=== PATIENT | male | born 1945 | race Caucasian/White ===

== ENCOUNTER 2018-02-28 08:54 | Inpatient (IN) | payer MEDICARE ==
[2018-02-28] MEDS ORDERED: NS 0.9% 1000 ML*IV.FLUID IV ONE (09:37)
--- OUTSIDE RECORDS SUMMARY | 2018-02-28 09:41 | XMS REPORT ---
:1945 External Reference #:[id number] Author Organization [facility] Address [address] [place] [address] Phone [phone] Care Team Providers Name Role Phone Alexandr Faria MD Care Team Information Trailer Sections Assembler Unavailable Alexandr Faria MD Primary Care Physician Unavailable Payers Type Date Identification Numbers Payment Provider Subscriber Medicare Primary Effective: Policy Number: Medicare Evy Martinez 2009 [id number] PayID: [id number] [address] [place] [address] Problems Date Description Provider Status Onset: 05/13/2011 Adult health examination Alexandr Faria M.D. Active Onset: 03/22/2012 Constipation Alexandr Faria M.D. Active Onset: 06/02/2012 Benign essential hypertension Alexandr Faria M.D. Active Onset: 06/02/2012 Schizoaffective schizophrenia in Alexandr Faria M.D. Active remission Onset: 12/23/2016 Gastroesophageal reflux disease Alexandr Faria M.D. Active Onset: 12/23/2016 Schizoaffective disorder Alexandr Faria M.D. Active Family History Date Family Member(s) Problem(s) Comments Father alzheimers Social History Type Date Description Comments Living Situation Patient lives alone Cigarette Use Nonsmoker ETOH Use Denies alcohol use Daily Caffeine Some Caffeine Allergies, Adverse Reactions, Alerts Date Description Reaction Status Severity Comments 05/07/2010 Stelazine active Medications Medication Date Status Form Strength Qnty SIG Indications Ordering Provider Physical 02/19/ Active treatment [facility] 2018 and danis Escobar Afnp-C of low back pain, also some balnce problems Doxycycline 02/11/ Active Tablets 100mg 20tab take 1 Alexandr Corbett 2018 s tablet by Breiman, mouth two M.D. times daily Omeprazole 05/12/ Active Capsules 20mg 90cap 1 by mouth Lizzeth 2015 DR pillai every day RACQUEL Correia Elavil 02/10/ Active Tablets 25mg 30tab 1 qhs Family 2006 [facility] Navane 02/10/ Active Capsule 10mg 2 PO Q hs Family 2006 [facility] Prozac 02/10/ Active Capsules 20mg 30cap 2 po qd Family 2006 s [facility] Diovan HCT 02/10/ Active Tablets 160-12.5mg 45tab / by Alexandr Bautista 2007 s mouth every Breiman, day M.D. Colace / Active Capsules 100mg 2 po qd Unknown 0000 Melatonin ER / Active Tablets ER 10mg 1 PO qd Unknown 0000 Tamiflu 10/17/ Hx Capsules 75mg 10cap 1 by mouth Alexandr Bautista 2015 - s twice a day Breiman, 07/05/ for 5 days M.D. 2014 Anusol-HC 03/22/ Hx Cream 2.5% 30uni apply bid Alexandr Bautista 2012 - ts Breiman, 05/11/ M.D. 2016 Immunizations CPT Code Status Date Vaccine Lot # [id number] Given 06/30/2017 Pneumococcal Immunization [id number] Given 06/30/2017 High-Dose, Influenza Virus Vacccine-fluzone 65 [id number] and older 86917 Given 06/17/2016 Pneumococcal Conjugate Vacc-13 [id number] Given 06/17/2016 High-Dose, Influenza Virus Vacccine-fluzone 65 [id number] and older Q2038 Given 04/13/2012 Split Influenza Medicare: Fluzone [id number] Given 01/13/2012 Zostivax [id number] Q2038 Given 03/21/2011 Split Influenza Medicare: Fluzone [id number] Given 05/07/2010 Tdap Tetanus, W Pertussis [id number] Given 04/29/2010 DO Not Use Split Influenza Virus Vaccine [id number] Vital Signs Date Vital Result Comment 02/19/2018 BP Systolic 126 mmHg BP Diastolic 86 mmHg Heart Rate 74 /min Body Temperature 97.6 F Respiratory Rate 16 /min 02/09/2018 BP Systolic 140 mmHg BP Diastolic 88 mmHg Heart Rate 84 /min Body Temperature 98.1 F Respiratory Rate 18 /min Height 65.5 inches 5'5.50" Weight 166.00 lb BMI (Body Mass Index) 27.2 kg/m2 12/29/2017 BP Systolic 122 mmHg BP Diastolic 82 mmHg Heart Rate 90 /min Body Temperature 98.2 F Height 65.5 inches 5'5.50" Weight 169.00 lb BMI (Body Mass Index) 27.7 kg/m2 11/16/2017 BP Systolic 146 mmHg BP Diastolic 80 mmHg Heart Rate 88 /min Body Temperature 97.3 F Respiratory Rate 18 /min Height 65.5 inches 5'5.50" 06/30/2017 BP Systolic 160 mmHg BP Diastolic 100 mmHg Heart Rate 86 /min Body Temperature 97.9 F Height 65.5 inches 5'5.50" Weight 172.25 lb BMI (Body Mass Index) 28.2 kg/m2 12/23/2016 BP Systolic 124 mmHg BP Diastolic 80 mmHg Heart Rate 84 /min Body Temperature 98.0 F Respiratory Rate 18 /min Height 65.5 inches 5'5.50" Weight 167.00 lb BMI (Body Mass Index) 27.4 kg/m2 06/17/2016 BP Systolic 126 mmHg BP Diastolic 80 mmHg Heart Rate 68 /min Body Temperature 97.6 F Respiratory Rate 20 /min Height 65.5 inches 5'5.50" Weight 179.12 lb BMI (Body Mass Index) 29.4 kg/m2 05/12/2016 BP Systolic 132 mmHg BP Diastolic 88 mmHg Heart Rate 90 /min Body Temperature 98.1 F Height 65.5 inches 5'5.50" Weight 179.50 lb BMI (Body Mass Index) 29.4 kg/m2 01/08/2016 BP Systolic 132 mmHg BP Diastolic 78 mmHg Heart Rate 88 /min Body Temperature 97.9 F Respiratory Rate 16 /min Height 65.5 inches 5'5.50" Weight 176.00 lb BMI (Body Mass Index) 28.8 kg/m2 07/05/2015 BP Systolic 140 mmHg BP Diastolic 80 mmHg Heart Rate 90 /min Body Temperature 97.6 F Respiratory Rate 16 /min Height 65.5 inches 5'5.50" Weight 178.50 lb BMI (Body Mass Index) 29.2 kg/m2 10/17/2014 BP Systolic 124 mmHg BP Diastolic 80 mmHg Heart Rate 92 /min Body Temperature 97.9 F Respiratory Rate 20 /min O2 % BldC Oximetry 97 % Height 65.5 inches 5'5.50" Weight 178.00 lb BMI (Body Mass Index) 29.2 kg/m2 09/12/2013 BP Systolic 130 mmHg BP Diastolic 80 mmHg Heart Rate 80 /min Body Temperature 97.8 F Respiratory Rate 14 /min Height 65.5 inches 5'5.50" Weight 185.00 lb BMI (Body Mass Index) 30.3 kg/m2 06/02/2012 BP Systolic 124 mmHg BP Diastolic 88 mmHg Heart Rate 84 /min Body Temperature 97.8 F Height 65.5 inches 5'5.50" Weight 187.00 lb BMI (Body Mass Index) 30.6 kg/m2 Right Visual Acuity Distance 20/25 corrected Left Visual Acuity Distance 20/25 corrected 03/22/2012 BP Systolic 124 mmHg BP Diastolic 80 mmHg Heart Rate 76 /min Body Temperature 98.1 F Height 65.5 inches 5'5.50" Weight 184.00 lb BMI (Body Mass Index) 30.2 kg/m2 05/13/2011 BP Systolic 124 mmHg BP Diastolic 80 mmHg Heart Rate 76 /min Height 65.5 inches 5'5.50" Weight 192.00 lb BMI (Body Mass Index) 31.5 kg/m2 05/07/2010 BP Systolic 126 mmHg BP Diastolic 80 mmHg Heart Rate 76 /min Height 65.5 inches 5'5.50" Weight 201.00 lb BMI (Body Mass Index) 32.9 kg/m2 03/20/2009 BP Systolic 122 mmHg BP Diastolic 70 mmHg Heart Rate 84 /min Height 65.5 inches 5'5.50" Weight 197.00 lb BMI (Body Mass Index) 32.3 kg/m2 12/07/2007 BP Systolic 112 mmHg BP Diastolic 72 mmHg Heart Rate 80 /min Height 199 inches 16'7" Weight 198.00 lb BMI (Body Mass Index) 3.5 kg/m2 02/10/2007 BP Systolic 134 mmHg BP Diastolic 90 mmHg Heart Rate 88 /min Height 199 inches 16'7" Weight 655.00 lb BMI (Body Mass Index) 11.6 kg/m2 Results Test Date Test Result H/L Range Note Laboratory test finding 02/09/2018 Sedimentation Rate 30mm D Dimer Quant (Fma) 573 ng/mL High 0.0-400 Brain Natural Peptide 39.7 pg/mL <100 Comprehensive Metabolic Prof 02/09/2018 Sodium 139 mEq/L 134-149 Potassium 3.6 mEq/L 3.6-5.5 Chloride 107 mEq/L 94-112 Carbon Dioxide 27 mEq/L 21-32 Glucose 103 mg/dL 70-105 BUN 19 mg/dL 6-26 Creatinine 0.7 mg/dL 0.6-1.4 BUN/Creat Ratio 27.1 CALC 8.0-36.0 Calcium 8.8 mg/dL 8.6-10.2 Total Protein 6.5 g/dL 6.4-8.3 Albumin 3.5 g/dL Low 3.8-5.5 1 Globulin 3.0 g/dL 2.0-4.8 A/G Ratio 1.2 CALC 0.6-2.3 Alk. Phosphatase 179 U/L High 22-95 Alt (SGPT) 61 U/L High 7-35 Ast (Sgot) 89 U/L High 5-34 Total Bilirubin 2.6 mg/dL High 0.2-1.3 GFR Non- >60 ml/min/1.73m^ >=60 GFR >60 ml/min/1.73m^ >=60 CBC Electronic [facility] 02/09/2018 WBC 3.9 x10^3/UL Low 4.0-10.0 RBC 3.97 x10^6/UL 3.93-6.00 HGB 12.8 g/dL 12.0-17.0 HCT 37 % 35-50 MCV 94.0 fL 80.0-95.0 MCH 32.2 pg 25.6-32.2 MCHC 34.3 g/dL 32.2-36.0 RDW-CV 15.3 % High 11.6-14.4 PLT 74 x10^3/UL Low 163-400 2 MPV 11.3 fL 9.4-12.4 Ferny# 2.88 x10^3/UL 1.56-6.13 Lymph# 0.58 x10^3/UL Low 1.18-3.74 Tensas# 0.31 x10^3/UL 0.24-0.82 Eos # 0.1 x10^3/UL 0.0-0.5 Baso # 0.02 x10^3/UL 0.01-0.08 Ferny% 74.7 % High 34.0-70.0 Lymph % 15.1 % Low 20.0-52.0 Tensas% 8.1 % 5.0-12.0 Eos% 1.6 % 0.7-7.0 Baso% 0.5 % 0.1-1.2 Lyme, Western Blot, Serum 02/09/2018 IgG P93 Ab. Absent 3 IgG P66 Ab. Absent 3 IgG P58 Ab. Absent 3 IgG P45 Ab. Absent 3 IgG P41 Ab. Absent 3 IgG P39 Ab. Absent 3 IgG P30 Ab. Absent 3 IgG P28 Ab. Absent 3 IgG P23 Ab. Absent 3 IgG P18 Ab. Absent 3 Lyme IgG WB Interp. Negative 3, 4 IgM P41 Ab. Absent 3 IgM P39 Ab. Absent 3 IgM P23 Ab. Absent 3 Lyme IgM WB Interp. Negative 3, 5 Total And Direct Bili 02/09/2018 Total Bilirubin 2.6 mg/dL High 0.2-1.3 Direct Bilirubn 1.4 mg/dL High 0.0-0.6 Indirect Bilirubin 1.20 mg/dL High 0.10-1.00 Laboratory test finding 12/29/2017 Vitamin B-12 >2000 pg/mL High 230-1050 6 TSH 1.19 mIU/L 0.50-6.00 Free T4 1.38 ng/dL 0.75-1.54 Ua - Micro (Fma) 12/29/2017 Appearance clear Color yellow Glucose, Urine (Fma/CMC/CTX) neg Bilirubin neg Ketones neg SP Grav 1.015 Blood neg PH 7.5 Protein neg Urobil >=8.0 Nitrite neg Leukocytes (Fma/CMC/Centrex) neg Hyaline - /Lpf Granular - /Lpf WBC (Fma,Centrex) - RBC - Mucus (Fma/CBC/Centrex) - /Lpf Epith rare /Lpf Bacteria - /Hpf Amorphous (Fma/CMC/Centrex) - /Lpf Crystals, Fluid (Fma/CMC/CTX) - Iron And Tibc 07/08/2017 Iron Bind.Cap.(Tibc) 357 g/dL 250-450 7 Uibc 219 g/dL 111-343 7 Iron, Serum 138 g/dL 38-169 7 Iron Saturation 39 % 15-55 7 Laboratory test finding 07/08/2017 HBsAg Screen Negative Negative 7 Comprehensive Metabolic Prof 06/30/2017 Sodium 147 mEq/L 134-149 Potassium 4.1 mEq/L 3.6-5.5 Chloride 111 mEq/L 94-112 Carbon Dioxide 26 mEq/L 21-32 Glucose 114 mg/dL High 70-105 8 BUN 16 mg/dL 6-26 Creatinine 0.9 mg/dL 0.6-1.4 BUN/Creat Ratio 17.8 CALC 8.0-36.0 Calcium 9.7 mg/dL 8.6-10.2 Total Protein 7.2 g/dL 6.4-8.3 Albumin 4.2 g/dL 3.8-5.5 Globulin 3.0 g/dL 2.0-4.8 A/G Ratio 1.4 CALC 0.6-2.3 Alk. Phosphatase 160 U/L High 22-95 Alt (SGPT) 106 U/L High 7-35 Ast (Sgot) 105 U/L High 5-34 Total Bilirubin 1.5 mg/dL High 0.2-1.3 GFR Non- >60 ml/min/1.73m^ >=60 GFR >60 ml/min/1.73m^ >=60 Lipid Profile 06/30/2017 Cholesterol 175 mg/dL 120-200 Triglycerides 46 mg/dL 30-200 HDL Cholesterol 86 mg/dL High 30-70 9 LDL (Calculated) 80 CALC 0-129 VLDL Cholesterol 9 mg/dL 0-50 HDL Risk Factor 2.0 CALC 0.0-4.4 Complete Blood Count 06/30/2017 WBC 4.2 x10^3/UL 3.6-9.6 RBC 4.42 x10^6/UL 3.90-5.70 HGB 13.6 g/dL 12.1-17.2 HCT 40 % 36-50 MCV 91.0 fL 82.2-97.4 MCH 30.8 pg 27.6-33.3 MCHC 33.7 g/dL 33.0-35.5 RDW 14.7 % High 11.6-13.7 PLT 142 x10^3/UL Low 150-400 10 MPV 8.2 fL 7.4-10.4 Gran # 3.2 x10^3/UL 1.5-7.2 Lymph# 0.8 x10^3/UL 0.7-4.9 Tensas# 0.2 x10^3/UL 0.1-0.9 Gran % 76.0 % High 42.2-75.2 Lymph % 19.2 % Low 20.5-51.1 Tensas% 4.8 % 1.7-9.3 Laboratory test finding 06/30/2017 PSA 0.1 ng/mL 0.0-4.0 Lipid Profile 12/23/2016 Cholesterol 178 mg/dL 120-200 Triglycerides 58 mg/dL 30-200 HDL Cholesterol 67 mg/dL 30-70 LDL (Calculated) 99 CALC 0-129 VLDL Cholesterol 12 mg/dL 0-50 HDL Risk Factor 2.7 CALC 0.0-4.4 Comprehensive Metabolic Prof 06/17/2016 Sodium 142 mEq/L 134-149 Potassium 4.4 mEq/L 3.6-5.5 Chloride 100 mEq/L 94-112 Carbon Dioxide 27 mEq/L 21-32 Glucose 107 mg/dL High 70-105 11 BUN 21 mg/dL 6-26 Creatinine 1.0 mg/dL 0.6-1.4 BUN/Creat Ratio 21.0 CALC 8.0-36.0 Calcium 9.8 mg/dL 8.6-10.2 Total Protein 7.2 g/dL 6.4-8.3 Albumin 4.1 g/dL 3.8-5.5 Globulin 3.1 g/dL 2.0-4.8 A/G Ratio 1.3 CALC 0.6-2.3 Alk. Phosphatase 128 U/L High 22-95 Alt (SGPT) 68 U/L High 7-35 Ast (Sgot) 65 U/L High 5-34 Total Bilirubin 0.8 mg/dL 0.2-1.3 GFR Non- >60 ml/min/1.73m^ >=60 GFR >60 ml/min/1.73m^ >=60 Complete Blood Count 06/17/2016 WBC 4.2 x10^3/UL 3.6-9.6 RBC 4.43 x10^6/UL 3.90-5.70 HGB 13.8 g/dL 12.1-17.2 HCT 40 % 36-50 MCV 90.0 fL 82.2-97.4 MCH 31.2 pg 27.6-33.3 MCHC 34.5 g/dL 33.0-35.5 RDW 13.8 % High 11.6-13.7 PLT 152 x10^3/UL 150-400 MPV 7.4 fL 7.4-10.4 Gran # 3.2 x10^3/UL 1.5-7.2 Lymph# 0.8 x10^3/UL 0.7-4.9 Tensas# 0.2 x10^3/UL 0.1-0.9 Gran % 74.1 % 42.2-75.2 Lymph % 20.3 % Low 20.5-51.1 Tensas% 5.6 % 1.7-9.3 Laboratory test finding 06/17/2016 HCV Antibody <0.1 s/coratio 0.0-0.9 12, 13 Lipid Profile 01/08/2016 Cholesterol 189 mg/dL 120-200 Triglycerides 66 mg/dL 30-200 HDL Cholesterol 75 mg/dL High 30-70 LDL (Calculated) 101 CALC 0-129 VLDL Cholesterol 13 mg/dL 0-50 HDL Risk Factor 2.5 CALC 0.0-4.4 Comprehensive Metabolic Prof 07/05/2015 Sodium 141 mEq/L 134-149 Potassium 4.2 mEq/L 3.6-5.5 Chloride 101 mEq/L 94-112 Carbon Dioxide 29 mEq/L 21-32 Glucose 105 mg/dL 70-105 BUN 12 mg/dL 6-26 Creatinine 0.9 mg/dL 0.6-1.4 BUN/Creat Ratio 13.3 CALC 8.0-36.0 Calcium 9.2 mg/dL 8.6-10.2 Total Protein 7.2 g/dL 6.4-8.3 Albumin 4.2 g/dL 3.8-5.5 Globulin 3.0 g/dL 2.0-4.8 A/G Ratio 1.4 CALC 0.6-2.3 Alk. Phosphatase 91 U/L 22-95 Alt (SGPT) 40 U/L High 7-35 Ast (Sgot) 50 U/L High 5-34 Total Bilirubin 0.8 mg/dL 0.2-1.3 GFR Non- >60 ml/min/1.73m^ >=60 GFR >60 ml/min/1.73m^ >=60 CBC Electronic (Fma) 07/05/2015 WBC 4.5 3.6-9.6 RBC 4.32 3.90-5.70 Hemoglobin (Fma/CMC/CTX) 13.4 g/dL 12.1 - 17.2 Hematocrit (Fma/CMC/CTX) 40.3 % 36.1 - 50.3 Platelets 152 10^3/ul 150-400 Lymph% 24.4 % 17.0-48.0 Mixed% 5.9 Neutrophils % 69.7 Mean Corpuscular Vol 93 82.2-97.4 Mean Corpuscular Hemoglobin 31.1 27.6-33.3 Mean Corpuscular Hemo Concen 33.3 32.0-36.0 RDW 13.6 11.6-13.7 Mean Platelet Volume 7.7 5.5-11.0 Influenza A&B-chi [facility] 10/17/2014 Influenza A negative Influenza B positive Comprehensive Metabolic Prof 04/05/2013 Albumin 4.6 g/dL 3.8-5.5 Alk. Phos. 91 U/L 22-95 Alt (SGPT) 71 U/L High 10-40 Ast (Sgot) 63 U/L High 5-34 BUN 16 mg/dL 6-26 Calcium 9.9 mg/dL 8.6-10.2 Chloride 105 mEq/L 94-112 Creatinine 1.1 mg/dL 0.6-1.4 Carbon Dioxide 28 mEq/L 21-32 Glucose 96 mg/dL 70-105 Sodium 140 mEq/L 134-149 Total Bilirubin 0.9 mg/dL 0.2-1.3 Total Protein 7.6 g/dL 6.3-8.1 Potassium 4.5 mEq/L 3.6-5.5 Globulin 3.0 g/dL 2.0-4.8 A/G Ratio 1.6 Calc 0.6-2.3 BUN/Creat Ratio 14.6 Calc 8.0-36.0 Lipid Profile 04/05/2013 Cholesterol 198 mg/dL 120-200 HDL 57 mg/dL 30-70 Triglycerides 66 mg/dL 30-200 HDL Risk Factor 3.5 CALC 0.0-4.4 LDL (Calculated) 128 CALC 0-129 VLDL (Calculated) 13 mg/dL 0-50 CBC Electronic ([facility]) 04/05/2013 WBC 4.1 3.6-9.6 RBC 4.76 3.90-5.70 Hemoglobin (Fma/CMC/CTX) 14.5 g/dL 12.1 - 17.2 Hematocrit (Fma/CMC/CTX) 44.1 % 36.1 - 50.3 Platelets 150 10^3/ul 150-400 Lymph% 30.9 20.5-51.1 Mixed% 4.6 Neutrophils % 64.5 Mean Corpuscular Vol 93 82.2-97.4 Mean Corpuscular Hemoglobin 30.5 27.6-33.3 Mean Corpuscular Hemo Concen 32.9 32.0-36.0 RDW 12.6 11.6-13.7 Mean Platelet Volume 7.3 6.5-11.0 Comprehensive Metabolic Prof 06/02/2012 Albumin 4.7 g/dL 3.8-5.5 Alk. Phos. 88 U/L 22-95 Alt (SGPT) 104 U/L High 10-40 Ast (Sgot) 98 U/L High 5-34 BUN 18 mg/dL 6-26 Calcium 8.8 mg/dL 8.6-10.2 Chloride 104 mEq/L 94-112 Creatinine 1.1 mg/dL 0.6-1.4 Carbon Dioxide 24 mEq/L 21-32 Glucose 93 mg/dL 70-105 Sodium 138 mEq/L 134-149 Total Bilirubin 0.8 mg/dL 0.2-1.3 Total Protein 7.3 g/dL 6.3-8.1 Potassium 4.1 mEq/L 3.6-5.5 Globulin 2.6 g/dL 2.0-4.8 A/G Ratio 1.8 Calc 0.6-2.2 BUN/Creat Ratio 16.2 Calc 8.0-36.0 Lipid Profile 06/02/2012 Cholesterol 187 mg/dL 120-200 HDL 58 mg/dL 30-70 Triglycerides 66 mg/dL 30-200 HDL Risk Factor 3.2 CALC 0.0-4.4 LDL (Calculated) 115 CALC 0-129 VLDL (Calculated) 13 mg/dL 0-50 Ua - Non Micro (Fma) 06/02/2012 Appearance CLEAR Color YELLOW Glucose, Urine (Fma/CMC/CTX) NEG Bilirubin NEG Ketones NEG SP Grav 1.025 Blood NEG PH 7.0 Protein NEG Urobil 0.2 Nitrite NEG Leukocytes (Fma/CMC/Centrex) NEG Laboratory test finding 06/02/2012 PSA 0.10 ng/mL 0.00-4.00 CBC Electronic (Fma) 06/02/2012 WBC 4.5 3.6-9.6 RBC 4.03 3.90-5.70 Hemoglobin (Fma/CMC/CTX) 15.0 g/dL 12.1 - 17.2 Hematocrit (Fma/CMC/CTX) 45.7 % 36.1 - 50.3 Platelets 227 10^3/ul 150-400 Lymph% 25.4 20.5-51.1 Mixed% 6.4 Neutrophils % 68.2 Mean Corpuscular Vol 91 82.2-97.4 Mean Corpuscular Hemoglobin 29.9 27.6-33.3 Mean Corpuscular Hemo Concen 32.9 32.0-36.0 RDW 14.1 High 11.6-13.7 Mean Platelet Volume 7.8 6.5-11.0 Laboratory test finding 05/27/2012 Surgical Pathology RUN DATE: <SEE NOTE> Lipid Profile 05/13/2011 Cholesterol 180 mg/dL 120-200 HDL 66 mg/dL 30-70 Triglycerides 74 mg/dL 30-200 HDL Risk Factor 2.7 CALC 0.0-4.0 LDL (Calculated) 99 CALC 0-129 VLDL (Calculated) 15 mg/dL 0-50 Laboratory test finding 05/13/2011 PSA 0.10 ng/mL 0.00-4.00 CBC Electronic (a) 05/13/2011 WBC 6.3 3.6-9.6 RBC 5.46 3.90-5.70 Hemoglobin (Fma/CMC/CTX) 16.0 g/dL 12.1 - 17.2 Hematocrit (Fma/CMC/CTX) 48.6 % 36.1 - 50.3 Platelets 232 10^3/ul 150-400 Lymph% 22.8 20.5-51.1 Mixed% 5.8 Neutrophils % 71.4 Mean Corpuscular Vol 89 82.2-97.4 Mean Corpuscular Hemoglobin 29.4 27.6-33.3 Mean Corpuscular Hemo Concen 32.9 32.0-36.0 RDW 12.4 11.6-13.7 Mean Platelet Volume 7.6 6.5-11.0 Comprehensive Metabolic Prof 05/13/2011 Albumin 4.6 g/dL 3.8-5.5 Alk. Phos. 75 U/L 22-95 Alt (SGPT) 89 U/L High 10-40 Ast (Sgot) 56 U/L High 5-34 BUN 20 mg/dL 6-26 Calcium 9.3 mg/dL 8.6-10.2 Chloride 100 mEq/L 94-112 Creatinine 1.2 mg/dL 0.6-1.4 Carbon Dioxide 29 mEq/L 21-32 Glucose 89 mg/dL 70-105 Sodium 136 mEq/L 134-149 Total Bilirubin 0.7 mg/dL 0.2-1.3 Total Protein 7.1 g/dL 6.3-8.1 Potassium 4.2 mEq/L 3.6-5.5 Globulin 2.6 g/dL 2.0-4.8 A/G Ratio 1.8 Calc 0.6-2.2 BUN/Creat Ratio 17.1 Calc 8.0-36.0 Lipid Profile 05/07/2010 Cholesterol 206 mg/dL High 120-200 HDL 57 mg/dL 30-70 Triglycerides 74 mg/dL 30-200 HDL Risk Factor 3.6 CALC Low 4.2-7.0 LDL (Calculated) 135 CALC High 0-129 VLDL (Calculated) 15 mg/dL 0-50 Laboratory test finding 05/07/2010 TSH 0.87 mIU/L 0.50-6.00 PSA 0.10 ng/mL 0.00-4.00 Ua - Non Micro ([facility]) 05/07/2010 Appearance clear Color yellow Glucose, Urine (Fma/CMC/CTX) neg Bilirubin neg Ketones neg SP Grav 1.015 Blood neg PH 7.0 Protein neg Urobil 0.2 Nitrite neg Leukocytes (Fma/CMC/Centrex) neg CBC (a) 05/07/2010 WBC 5.1 3.6-9.6 RBC 5.16 3.90-5.70 Hemoglobin (Fma/CMC/CTX) 15.7 g/dL 12.1 - 17.2 Hematocrit (Fma/CMC/CTX) 45.7 % 36.1 - 50.3 Platelets 205 10^3/ul 150-400 Lymph% 27.5 20.5-51.1 Mixed% 6.0 Neutrophils % 66.5 Mean Corpuscular Vol 89 82.2-97.4 Mean Corpuscular Hemoglobin 30.4 27.6-33.3 Mean Corpuscular Hemo Concen 34.4 33.0-36.0 RDW 12.4 11.6-13.7 Mean Platelet Volume 7.3 Low 7.4-10.4 Comprehensive Metabolic Prof 05/07/2010 Albumin 4.6 g/dL 3.8-5.5 Alk. Phos. 79 U/L Alt (SGPT) 79 U/L High Ast (Sgot) 54 U/L High BUN 18 mg/dL 6 Calcium 9.9 mg/dL 8.6-10.2 Chloride 100 mEq/L 94-112 Creatinine 1.0 mg/dL 0.6-1.4 Carbon Dioxide 25 mEq/L 21-32 Glucose 93 mg/dL 70-105 Sodium 139 mEq/L 134-149 Total Bilirubin 0.9 mg/dL 0.2-1.3 Total Protein 7.5 g/dL 6.3-8.1 Potassium 4.2 mEq/L 3.6-5.5 Globulin 2.9 g/dL 2.0-4.8 A/G Ratio 1.6 Calc 0.6-2.2 BUN/Creat Ratio 16.8 Calc 8.0-36.0 Comprehensive Metabolic Prof 04/04/2009 Albumin 4.3 g/dL 3.8-5.5 15 Alk. Phos. 77 U/L 15 Alt (SGPT) 66 U/L High 15 Ast (Sgot) 45 U/L High 15 BUN 21 mg/dL - 15 Calcium 9.4 mg/dL 8.6-10.2 15 Chloride 99 mEq/L 94-112 15 Creatinine 1.2 mg/dL 0.6-1.4 15 Carbon Dioxide 29 mEq/L 21-32 15 Glucose 92 mg/dL 70-105 15 Sodium 138 mEq/L 134-149 15 Total Bilirubin 0.6 mg/dL 0.2-1.3 15 Total Protein 7.4 g/dL 6.3-8.1 15 Potassium 4.1 mEq/L 3.6-5.5 15 Globulin 3.0 g/dL 2.0-4.8 15 A/G Ratio 1.4 Calc 0.6-2.2 15 BUN/Creat Ratio 17.2 Calc 8.0-36.0 15 Lipid Profile 04/04/2009 Cholesterol 189 mg/dL 120-200 15 HDL 56 mg/dL 30-70 15 Triglycerides 66 mg/dL 30-200 15 HDL Risk Factor 3.4 CALC Low 4.2-7.0 15 LDL (Calculated) 120 CALC 0-129 15 VLDL (Calculated) 13 mg/dL 0-50 15 Complete Blood Count 04/04/2009 WBC 5.1 x10^3/uL 3.6-9.6 15 Gran# 3.5 x10^3/uL 1.5-7.2 15 Gran% 68.6 % 42.2-75.2 15 HCT 43 % 36-50 15 HGB 14.4 g/dL 12.1-17.2 15 Lymph# 1.3 x10^3/uL 0.7-4.9 15 Lymph% 24.7 % 20.5-51.1 15 MCH 28.9 pg 27.6-33.3 15 MCV 85.4 fL 82.2-97.4 15 MCHC 33.8 g/dL 33.0-35.5 15 Mo# 0.3 x10^3/uL 0.1-0.9 15 Mo% 6.7 % 1.7-9.3 15 MPV 7.9 fL 7.4-10.4 15 PLT 206 x10^3/uL 150-400 15 RBC 5.00 x10^6/uL 3.90-5.70 15 RDW 13.8 % High 11.6-13.7 15 Lipid Profile 12/07/2007 Cholesterol 196 mg/dL 120-200 15 HDL 52 mg/dL 30-70 15 Triglycerides 60 mg/dL 30-200 15 HDL Risk Factor 3.8 CALC Low 4.2-7.0 15 LDL (Calculated) 132 CALC High 0-129 15 VLDL (Calculated) 12 mg/dL 0-50 15 Complete Blood Count 12/07/2007 WBC 4.5 x10^3/u 3.6-9.6 15 Gran# 3.1 x10^3/u 1.5-7.2 15 Gran% 68.1 % 42.2-75.2 15 HCT 44 % 36-50 15 HGB 14.9 g/dL 12.1-17.2 15 Lymph# 1.1 x10^3/u 0.7-4.9 15 Lymph% 24.8 % 20.5-51.1 15 MCH 29.4 pg 27.6-33.3 15 MCV 87.6 fL 82.2-97.4 15 MCHC 33.5 g/dL 33.0-35.5 15 Mo# 0.3 x10^3/u 0.1-0.9 15 Mo% 7.1 % 1.7-9.3 15 MPV 7.7 fL 7.4-10.4 15 PLT 243 x10^3/u 150-400 15 RBC 5.07 x10^6/u 3.90-5.70 15 RDW 14.2 % High 11.6-13.7 15 Laboratory test finding 12/07/2007 PSA 0.20 ng/mL 0.00-4.00 15 Comprehensive Metabolic Prof 12/07/2007 Albumin 4.2 g/dL 3.8-5.5 15 Alk. Phos. 79 U/L 22-95 15 Alt (SGPT) 59 U/L High 10-40 15 Ast (Sgot) 41 U/L High 5-34 15 BUN 21 mg/dL 6-26 15 Calcium 9.4 mg/dL 8.6-10.2 15 Chloride 103 mEq/L 94-112 15 Creatinine 1.3 mg/dL 0.6-1.4 15 Carbon Dioxide 25 mEq/L 21-32 15 Glucose 100 mg/dL 70-105 15 Sodium 138 mEq/L 134-149 15 Total Bilirubin 0.6 mg/dL 0.2-1.3 15 Total Protein 7.1 g/dL 6.3-8.1 15 Potassium 3.9 mEq/L 3.6-5.5 15 Globulin 2.9 g/dL 2.0-4.8 15 A/G Ratio 1.4 Calc 0.6-2.2 15 BUN/Creat Ratio 16.0 Calc 8.0-36.0 15 1 RESULTS VERIFIED BY REPEAT ANALYSIS 2 RESULTS VERIFIED BY REPEAT ANALYSIS 3 1SST 4 Positive: 5 of the following Borrelia-specific bands: 18,23,28,30,39,41,45,58, 66, and 93. Negative: No bands or banding patterns which do not meet positive criteria. 5 Note: An equivocal or positive EIA result followed by a negative Western Blot result is considered NEGATIVE. An equivocal or positive EIA result followed by a positive Western Blot is considered POSITIVE by the CDC. Positive: 2 of the following bands: 23,39 or 41 Negative: No bands or banding patterns which do not meet positive criteria. Criteria for positivity are those recommended by CDC/ASTPHLD. p23=Osp C, o72=uonfqnbth Note: Sera from individuals with the following may cross react in the [place] Western Blot assays: other spirochetal diseases (periodontal disease, leptospirosis, relapsing fever, yaws, and pinta); connective autoimmune (Rheumatoid Arthritis and Systemic Lupus Erythematosus and also individuals with Antinuclear Antibody); other infections ([place] Spotted Fever; Noa-Rogers Virus, and Cytomegalovirus). 6 RESULTS VERIFIED BY REPEAT ANALYSIS 7 1 serum pour off from an s st 8 RESULTS VERIFIED BY REPEAT ANALYSIS 9 RESULTS VERIFIED BY REPEAT ANALYSIS 10 RESULTS VERIFIED BY REPEAT ANALYSIS 11 NON-FASTING 12 1SST 13 Negative: < 0.8 Indeterminate: 0.8 - 0.9 Positive: > 0.9 The CDC recommends that a positive HCV antibody result be followed up with a HCV Nucleic Acid Amplification test (524811). 14 RUN DATE: 05/31/12 [facility] LAB LIVE PAGE 1 RUN TIME: [address] [place] [id number] Specimen Inquiry Name: MALORIE MARTINEZ : [address]: Beni Woo MD Acct: [id number] Unit: [id number] AGE: 66 Location: [facility] Re05/27/12 SEX: M Status: REG REF SPEC: [id number] ASUNCION: 05/27/12- SUBM DR: Chilo SAVAGE, Beni Ivy REQ: [id number] RECD: 05/28/12 STATUS: ALEKS FRANCIS DR: Giana SAVAGE,Alexandr _ ORDERED: LEVEL IV/5 FINAL DIAGNOSIS 1. Colon, transverse, biopsy: A. Tubular adenoma. B. No high grade dysplasia or malignancy. 2. Colon, cecum, biopsy: A. Tubular adenoma. B. No high grade dysplasia or malignancy. 3. Colon, hepatic flexure, biopsy: Hyperplastic polyp. 4. Colon, 40 cm., biopsy: Hyperplastic polyp. 5. Colon, 20 cm., biopsy: Hyperplastic polyp. CLINICAL HISTORY Change in bowel habits; constipation, rectal bleeding POST-OPERATIVE DIAGNOSIS Colonoscopy into cecum, prep fair - 5 polyps removed, hemorrhoids GROSS DESCRIPTION 1. The specimen is received in formalin labelled Malorie Martinez, Transverse Colon Polyp, and consists of a quesada, soft tissue fragment measuring 0.7 x 0.6 x 0.3 cm. Submitted entirely, one cassette. CONTINUED ON NEXT PAGE * ML=Testing performed at Main Lab DEPARTMENT OF PATHOLOGY, [facility] [employer] [place] [address] Clemente Serrato M.D. Director [facility] [facility] Permit #[id number] RUN DATE: 05/31/12 [facility] LAB LIVE PAGE 2 RUN TIME: [address] [place] [id number] Specimen Inquiry Patient: MALORIE MARTINEZ [id number] (Continued) GROSS DESCRIPTION (Continued) GROSS DESCRIPTION (Continued) 2. The specimen is received in formalin labelled Malorie Michelle, Cecum Polyp, and consists of a quesada, soft tissue fragment measuring 0.4 x 0.3 x 0.2 cm. Submitted entirely, one cassette. 3. The specimen is received in formalin labelled Malorie Michelle, Biopsy Polyp Hepatic Flexure, and consists of two, quesada, soft tissue fragments measuring 0.4 x 0.2 x 0.2 cm. Submitted entirely, one cassette. 4. The specimen is received in formalin labelled Malorie Michelle, Biopsy Colon Polyp at 40 cm., and consists of a quesada, soft tissue fragment measuring 0.3 x 0.2 x 0.1 cm. Submitted entirely, one cassette. 5. The specimen is received in formalin labelled Malorie Michelle, Biopsy Colon Polyp at 20 cm., and consists of a quesada, soft tissue fragment measuring 0.2 x 0.2 x 0.2 cm. Submitted entirely, one cassette. 1. Signed (signature on file) Clemente Serrato MD 1535 END OF REPORT * ML=Testing performed at Main Lab DEPARTMENT OF PATHOLOGY, [address] [place] [address] Clemente Serrato M.D. Director [facility] Permit #[id number] 15 FASTING Procedures Date CPT Code Description Status 11/16/2017 24245 Remove Impact Cerumen Irrigati Completed 06/02/2012 83703 Vision Test- screening test of visual acuity, Completed quantitative, bila 06/02/2012 Colonoscopy Completed 05/07/2010 32799 Electrocardiogram Complete Completed Encounters Type Date Location Provider CPT E/M Dx Office Visit 12/29/2017 9:20a [facility] Alexandr Faria M.D. 90228 R42 I10 F25.9 Office Visit 11/16/2017 9:45a [facility] Sarah Estevez 56405 H61.23 Office Visit 06/30/2017 8:00a [facility] Alexandr Faria M.D. 19158 I10 F25.9 Z12.5 Z23 Office Visit 12/23/2016 8:00a [facility] Alexandr Faria M.D. 64051 I10 K21.9 F25.9 Office Visit 06/17/2016 8:00a [facility] Alexandr Faria M.D. 03572 I10 K21.9 Z11.59 Z23 Office Visit 05/12/2016 9:30a [facility] Sarah Estevez 18246 K21.9 Office Visit 01/08/2016 10:10a [facility] Alexandr Faria M.D. 98991 I10 Office Visit 07/05/2015 8:20a [facility] Alexandr Faria M.D. 25065 I10 Office Visit 10/17/2014 1:00p [facility] Alexandr Faria M.D. 04425 465.9 Office Visit 09/12/2013 1:00p [facility] Alexandr Faria M.D. 18105 380.4 Office Visit 03/22/2012 2:10p [facility] Alexandr Faria M.D. 97931 564.00 Office Visit 05/07/2010 10:20a [facility] Alexandr Faria M.D. 74397 401.1 295.75 780.79 V76.44 V06.5 Office Visit 03/20/2009 2:40p [facility] Alexandr Faria M.D. 76374 401.1 295.75 Office Visit 12/07/2007 9:40a [facility] Alexandr Faria M.D. 26584 401.1 295.75 V76.44 Office Visit 02/10/2007 5:40p [facility] Alexandr Faria M.D. 92289 401.1 295.75 Plan of Care Future Appointment(s):03/09/2018 3:10 pm - [facility]0502/19/2018 - Miriam Escobar, Elliot-CM54.5 Low back painNew Xrays:Lumbar Spine 2 Or 3 ViewsFollow up:Followup:. (Follow up)R29.6 Repeated fallsAllNew Medication:Physical TherapyComments:~B_~U_Medication Management~b_~u _ Patient Understands medications he's taking? Yes No Are there Barriers to Adherence? Yes No Has the patient been asked about herbal supplements and therapies, and OTC meds? Yes No ~B_~U_Care Plan~b_ ~u_1. Patient has been queried about patient's goals/preferences and functional /lifestyle goals at relevant visits. If relevant, describe: na2. Treatment goals as explained to the patient: abovefurther eval of sx 3. Are there barriers to meeting treatment goals? Yes No If Yes, please describe:4. Self-Management goals as described to the patient: Yes No I reviewed this with Dr Brooks who advised discussion with psy willget x-ray and PT f/ u pending test results
[2018-02-28 09:46] LABS: Hematocrit 36 % (42-52); Hemoglobin 12.2 g/dl (14.0-18.0); Mean Corpuscular HGB Conc 34 g/dl (31-36); Mean Corpuscular Hemoglobin 32 pg (27-31); Mean Corpuscular Volume 94 fL (80-94); Red Blood Count 3.82 10^6/ul (4.00-5.40); Red Cell Distribution Width 16 % (10.5-15); White Blood Count 6.5 10^3/ul (3.5-10.8)
[2018-02-28 10:03] LABS: ABS Basophils 0 10^3/ul (0-0.2); ABS Eosinophils 0 10^3/ul (0-0.6); ABS Lymphocytes 0.3 10^3/ul (1.0-4.8); ABS Monocytes 0.4 10^3/ul (0-0.8); ABS Neutrophils 5.8 10^3/ul (1.5-7.7); ABS Nucleated RBC 0 10^3/ul; Eosinophil % 0.2 % (0-6); Lymphocyte % 5.2 % (25-47); Nucleated Red Blood Cells % 0; Platelet Count 75 10^3/ul (150-450)
[2018-02-28 10:05] LABS: EGFR Non-African American 113.4 (>60)
--- NOTE | 2018-02-28 10:10 | RAD ---
HISTORY: FREQUENT FALLS COMPARISONS: None TECHNIQUE: Multiple contiguous axial CT scans were obtained of the cervical spine without intravenous contrast, with coronal and sagittal multiplanar reformations. FINDINGS: BRAIN: The visualized brain is unremarkable CENTRAL CANAL: Evaluation of the central canal is limited on CT technique; however, there is no obvious canalicular mass or epidural hemorrhage. ALIGNMENT: There is a mild scoliotic curvature of the spine. VERTEBRAL BODIES: There is diffuse osteopenia. Is multilevel anterolateral marginal osteophyte formation. The vertebral bodies are preserved in height. There is no displaced fracture. JOINTS: There is uncovertebral and facet osteoarthritis. There is no subluxation or dislocation. MUSCULATURE: Unremarkable INTERVERTEBRAL DISCS: There is diffuse loss of intervertebral disc height. AXIAL IMAGES: C2-C3: There is no osseous neural foraminal narrowing or central canal stenosis. C3-C4: There is no osseous neural foraminal narrowing or central canal stenosis. C4-C5: There is mild bilateral neuroforaminal narrowing secondary to uncovertebral and facet hypertrophy. There is no osseous central canal stenosis. C5-C6: There is moderate left and mild right neuroforaminal narrowing. There is no osseous central canal stenosis. C6-C7: There is mild bilateral neuroforaminal narrowing. There is no osseous central canal stenosis. C7-T1: There is no osseous neural foraminal narrowing or central canal stenosis. SOFT TISSUES: The visualized soft tissues of the neck are unremarkable. The prevertebral fat stripe is preserved. OTHER: None. IMPRESSION: 1. DEGENERATIVE DISC DISEASE AND OSTEOARTHRITIS. 2. NO ACUTE OSSEOUS INJURY TO THE CERVICAL SPINE.
--- NOTE | 2018-02-28 10:11 | RAD ---
HISTORY: FREQUENT FALLS COMPARISONS: None TECHNIQUE: Multiple contiguous axial CT scans were obtained of the head without intravenous contrast. FINDINGS: HEMORRHAGE/INFARCT: There is no hemorrhage or acute infarct. MASSES/SHIFT: There is no mass or shift. EXTRA-AXIAL SPACES: There are no extra-axial fluid collections. SULCI AND VENTRICLES: There is diffuse and proportional enlargement of the sulci and ventricles. CEREBRUM: There are no focal parenchymal abnormalities. BRAINSTEM: There are no focal parenchymal abnormalities. CEREBELLUM: There are no focal parenchymal abnormalities. VESSELS: The vessels are grossly normal. PARANASAL SINUSES: The paranasal sinuses are clear. ORBITS: The orbits are unremarkable. BONES AND SOFT TISSUE: No bone or soft tissue abnormalities are noted. OTHER: None IMPRESSION: NO ACUTE INTRACRANIAL PATHOLOGY.
--- NOTE | 2018-02-28 10:12 | RAD ---
HISTORY: FREQUENT FALLS, JAW PAIN COMPARISONS: None TECHNIQUE: Multiple contiguous axial CT scans were obtained of the face without intravenous contrast, with coronal and sagittal multiplanar reformations. FINDINGS: BONES: There is no displaced fracture or dislocation. The orbital rim is intact. The zygomatic arch is intact. The pterygoid plates are intact. Degenerative changes are noted of the cervical spine. The mandible is unremarkable. ORBITS: The globes are round. The optic nerves are symmetric. The extraocular musculature is normal. There is no post septal or intraconal inflammatory change. There is no retrobulbar hematoma. PARANASAL SINUSES: The paranasal sinuses are clear. BRAIN AND SOFT TISSUE: Unremarkable. OTHER: None. IMPRESSION: NO FACIAL FRACTURE
--- NOTE | 2018-02-28 10:27 | ED ---
Adult Trauma - HPI Summary HPI Summary: This is scribe Phillip Deutsch documenting for attending Yao Moran. A 72 y/o male RADHA presents to ED c/o frequent falls and lower back pain. Currently, the patient feels well, but he is in pain when he attempts to get up. In the ED room, the patient has a pulse of 90 BPM, O2 saturation of 95% and blood pressure of 136/77. As per triage, "has been having frequent falls. multiple areas of bruising to left side of neck, left arm/elbow with swelling, left hip, abraision to left eyebrow, swelling to left jaw, bilateral pitting edema to lower ext. states he was unable to get out of bed this AM. states he loses his balance and then falls, recently started using cane due to falls". According to the patient, he believes he "knocked something" when he fell earlier today (was not able to get back up) and is experiencing lower back pain from the fall. He noted that every once in a while his back goes out and he started falling quite a bit last week for unknown reasons. Patient denies any headache, however is dizzy, lightheaded, weak and his ankle is stiff. He stated that he is on "the slim fast diet", as he only has been having 2 shakes (1 in AM and 1 in afternoon) for the past couple months with sometimes eating TV dinners and oatmeal. Patient hasn't eaten anything else. During evaluation, the patient thought it was Thursday and knows he is in hospital. Patient stated the month is "eight". PMHx of denies gout. SHx of lives by himself. Patient has had no change in medications. I, Dr. Moran, personally performed the services described in this documentation as scribed in my presence and it is both accurate and complete. - History of Current Complaint Chief Complaint: EDGeneral Stated Complaint: FALL Time Seen by Provider: 02/28/18 09:07 Hx Obtained From: Patient Mechanism of Injury: Fall - Unknown reasons Ambulatory at the Scene: Yes Onset/Duration: Started Days Ago, Still Present Onset of Pain: Days Onset Severity: Severe Current Severity: Severe Pain Intensity: 8 Pain Scale Used: 0-10 Numeric Location: Back - Lower Aggravating Factor(s): Movement Alleviating Factor(s): Nothing Associated Signs & Symptoms: Positive: Ecchymosis - Allergy/Home Medications Allergies/Adverse Reactions: Allergies Allergy/AdvReac Type Severity Reaction Status Date / Time No Known Allergies Allergy Verified 02/28/18 09:06 Home Medications: Home Medications Amitriptyline TAB* [Elavil TAB*] 100 mg PO BEDTIME 02/28/18 [History Confirmed 02/28/18] Doxycycline Hyclate 100 mg PO BID 02/28/18 [History Confirmed 02/28/18] Fluoxetine HCl 80 mg PO QAM 02/28/18 [History Confirmed 02/28/18] Omeprazole 20 mg PO DAILY 02/28/18 [History Confirmed 02/28/18] Thiothixene CAP* [Navane CAP 10 MG*] 20 mg PO BEDTIME 02/28/18 [History Confirmed 02/28/18] Valsartan/HCTZ 160/12.5(NF) [Diovan HCT 160/12.5 (NF)] 0.5 tab PO DAILY [History Confirmed 02/28/18] PMH/Surg Hx/FS Hx/Imm Hx Endocrine/Hematology History: Denies: Hx Diabetes Cardiovascular History: Denies: Hx Hypertension Infectious Disease History: No Infectious Disease History: Denies: Traveled Outside the [place] in Last 30 Days - Family History Known Family History: Positive: Other - Father had urinary infection with catheter put in place Negative: Hypertension, Diabetes - Social History Alcohol Use: Weekly Substance Use Type: Reports: None Smoking Status (MU): Former Smoker Review of Systems Negative: Fever, Chills Negative: Erythema Negative: Sore Throat Negative: Chest Pain Negative: Shortness Of Breath, Cough Negative: Abdominal Pain, Vomiting, Nausea Negative: dysuria, hematuria Positive: Other - POSITIVE: Stiff ankles, lower back pain. Negative: Myalgia, Edema Positive: Other - Diffuse brusing on body.. Negative: Rash Neurological: Other - POSITIVE: Dizziness, lightheaded Positive: Weakness. Negative: Headache All Other Systems Reviewed And Are Negative: Yes Physical Exam - Summary Physical Exam Summary: Constitutional: Well-developed, Well-nourished, Alert, Cooperative. Patient is dehydrated. Skin: Ecchymosis on left lateral thigh, left elbow and left mandible. Left ankle is swollen. HENT: Normocephalic; No Racoons eyes; No angulo's sign; No abrasion; No contusion; No hemotympanum; No maxilla facial tenderness or instability; Dentition are smooth; No dental trauma; No trismus. Dry mucous membranes. Eyes: EOM normal, PERRL Neck: Trachea is midline. No stridor; No JVD; No step off; No posterior cervical spine tenderness Cardio: Rhythm regular, rate normal Heart sounds normal; Intact distal pulses; The pedal pulses are 2+ and symmetric. Radial pulses are 2+ and symmetric. Pulmonary/Chest wall: Effort normal; Breath sounds normal; Equal chest rise; No flail segment; No rib tenderness; No sternal tenderness Abd: Soft, Appearance normal. No distension; No tenderness; No palpable pulsatile mass; No Cullens sign; No Grier-Turners sign Musculoskeletal: Full ROM and no tenderness at hips, ankles, shoulders, elbows and knees; No joint swelling; No vertebral body tenderness; No paraspinal tenderness; No step off or deformity of the spine; Pelvis is stable to lateral compression and rock. Patient has pain with flexion of lower back. Neuro: Alert, Oriented x3, Strength 5/5 all extremities. : No blood at urethral meatus Psych: Mood and affect Normal GCS: 15 Triage Information Reviewed: Yes Vital Signs On Initial Exam: Initial Vitals Temp Pulse Resp BP Pulse Ox 99 F 90 22 136/77 94 02/28/18 08:57 02/28/18 08:57 02/28/18 08:57 02/28/18 08:57 02/28/18 08:57 Vital Signs Reviewed: Yes Diagnostics - Vital Signs Vital Signs Temp Pulse Resp BP Pulse Ox 02/28/18 09:02 91 14 136/77 93 02/28/18 08:57 99 F 90 22 136/77 94 - Laboratory Lab Results: Lab Results 02/28/18 02/28/18 02/28/18 Range/Units 09:36 09:36 09:36 WBC 6.5 (3.5-10.8) 10^3/ul RBC 3.82 L (4.00-5.40) 10^6/ul Hgb 12.2 L (14.0-18.0) g/dl Hct 36 L (42-52) % MCV 94 (80-94) fL MCH 32 H (27-31) pg MCHC 34 (31-36) g/dl RDW 16 H (10.5-15) % Plt Count 75 L (150-450) 10^3/ul MPV 8.0 (7.4-10.4) um3 Neut % (Auto) 87.9 H (38-83) % Lymph % (Auto) 5.2 L (25-47) % Otero % (Auto) 6.5 (0-7) % Eos % (Auto) 0.2 (0-6) % Baso % (Auto) 0.2 (0-2) % Absolute Neuts (auto) 5.8 (1.5-7.7) 10^3/ul Absolute Lymphs (auto) 0.3 L (1.0-4.8) 10^3/ul Absolute Monos (auto) 0.4 (0-0.8) 10^3/ul Absolute Eos (auto) 0 (0-0.6) 10^3/ul Absolute Basos (auto) 0 (0-0.2) 10^3/ul Absolute Nucleated RBC 0 10^3/ul Nucleated RBC % 0 Hem Pathologist Commnt Pending Sodium 138 (135-145) mmol/L Potassium 3.6 (3.5-5.0) mmol/L Chloride 106 (101-111) mmol/L Carbon Dioxide 25 (22-32) mmol/L Anion Gap 7 (2-11) mmol/L BUN 19 (6-24) mg/dL Creatinine 0.69 (0.67-1.17) mg/dL Est GFR ( Amer) 137.2 (>60) Est GFR (Non-Af Amer) 113.4 (>60) BUN/Creatinine Ratio 27.5 H (8-20) Glucose 117 H (70-100) mg/dL Lactic Acid 1.7 (0.5-2.0) mmol/L Calcium 8.7 (8.6-10.3) mg/dL Magnesium 1.8 L (1.9-2.7) mg/dL Total Bilirubin 3.70 H (0.2-1.0) mg/dL AST 98 H (13-39) U/L ALT 58 H (7-52) U/L Alkaline Phosphatase 244 H (34-104) U/L Troponin I 0.02 (<0.04) ng/mL Total Protein 6.4 (6.4-8.9) g/dL Albumin 3.1 L (3.2-5.2) g/dL Globulin 3.3 (2-4) g/dL Albumin/Globulin Ratio 0.9 L (1-3) TSH Pending Result Diagrams: 02/28/18 09:36 02/28/18 09:36 Lab Statement: Any lab studies that have been ordered have been reviewed, and results considered in the medical decision making process. - Radiology CXR Radiology Interpretation Completed By: Radiologist - NO ACTIVE CARDIOPULMONARY DISEASE. ED PHYSICIAN REVIEWED THIS RADIOLOGY REPORT. 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 DEGENERATIVE DISC DISEASE AND OSTEOARTHRITIS. ED PHYSICIAN REVIEWED THIS RADIOLOGY REPORT. SHOULDER XR Radiology Interpretation Completed By: Radiologist - NO ACUTE OSSEOUS INJURY. IF SYMPTOMS PERSIST, RECOMMEND REPEAT IMAGING. ED PHYSICIAN REVIEWED THIS RADIOLOGY REPORT. ANKLE XR Radiology Interpretation Completed By: Radiologist - SOFT TISSUE SWELLING. NO ACUTE OSSEOUS INJURY. IF SYMPTOMS PERSIST, RECOMMEND REPEAT IMAGING. ED PHYSICIAN REVIEWED THIS RADIOLOGY REPORT. - CT BRAIN CT CT Interpretation Completed By: Radiologist - NO ACUTE INTRACRANIAL PATHOLOGY. ED physician reviewed this radiology report. MAXILLOFACIAL CT CT Interpretation Completed By: Radiologist - NO FACIAL FRACTURE. ED PHYSICIAN REVIEWED THIS RADIOLOGY REPORT. CERVICAL SPINE CT CT Interpretation Completed By: Radiologist - 1. DEGENERATIVE DISC DISEASE AND OSTEOARTHRITIS. 2. NO ACUTE OSSEOUS INJURY TO THE CERVICAL SPINE. ED PHYSICIAN REVIEWED THIS RADIOLOGY REPORT. - EKG 0915 Cardiac Rate: NL - 91 BPM EKG Rhythm: Sinus Rhythm Adult Trauma Course/Dx - Course Course Of Treatment: A 72 y/o male RADHA presents to ED c/o frequent falls and lower back pain. Currently, the patient feels well, but he is in pain when he attempts to get up. In the ED room, the patient has a pulse of 90 BPM, O2 saturation of 95% and blood pressure of 136/77. An EKG revealed a NSR of 91 BPM. A CXR revealed no active cardiopulmonary disease. A Shoulder XR revealed no acute osseous injury. If symptoms persist, recommend repeat imaging. A Lumbar Spine XR revealed stable age-indeterminate compression deformity of L2. Degenerative disc disease and osteoarthritis. An Ankle XR revealed soft tissue swelling. No acute osseous injury. If symptoms persist, recommend repeat imaging. A Brain CT revealed no acute intracranial pathology. A Maxillofacial CT revealed no facial fracture. A Cervical Spine CT revealed 1. Degenerative disc disease and osteoarthritis. 2. No acute osseous injury to the cervical spine. In the ED course, the patient received IV fluids. Patient care was discussed with hospitalist, Dr. Damico, who accepts patient for admission. Patient will be admitted with a diagnosis of frequent falls, left ankle sprain and ecchymosis. Patient is agreeable with this plan. - Diagnoses Provider Diagnoses: Frequent falls, Left ankle sprain, Ecchymosis - Physician Notifications Discussed Care Of Patient With: Giovany Damico Time Discussed With Above Provider: 13:52 Instructed by Provider To: Other - Accepts patient for admission. Discharge - Sign-Out/Discharge Documenting (check all that apply): Patient Departure - ADMIT - Discharge Plan Condition: Stable Disposition: ADMITTED TO [facility] Referrals: Alexandr Faria MD [Primary Care Provider] -
--- NOTE | 2018-02-28 12:16 | RAD ---
HISTORY: Frequent falls COMPARISONS: None VIEWS: 1: frontal portable view of the chest at 10:57 AM FINDINGS: LINES AND TUBES: None. CARDIOMEDIASTINAL SILHOUETTE: The cardiomediastinal silhouette is normal for portable technique. PLEURA: The costophrenic angles are sharp. No pleural abnormalities are noted. LUNG PARENCHYMA: The lungs are clear. ABDOMEN: The upper abdomen is clear. There is no subphrenic gas. BONES AND SOFT TISSUES: No bone or soft tissue abnormalities are noted. IMPRESSION: NO ACTIVE CARDIOPULMONARY DISEASE.
--- NOTE | 2018-02-28 12:17 | RAD ---
HISTORY: FALL LOW BACK NGUYEN COMPARISONS: February 26, 2018 VIEWS: 4 , Frontal, lateral, and bilateral oblique views of the lumbar spine. FINDINGS: Evaluation is limited by technique. ALIGNMENT: There is mild scoliotic curvature of the spine. VERTEBRAL BODIES: There is a stable age-indeterminate compression deformity of L2. There is mild anterolateral marginal osteophyte formation. There is diffuse osteopenia. JOINTS: There is facet osteoporosis along the lower lumbar spine. INTERVERTEBRAL DISCS: There is diffuse loss of intervertebral disc height. SOFT TISSUE: Unremarkable. OTHER: There is osteoarthritis of the hips. IMPRESSION: STABLE AGE-INDETERMINATE COMPRESSION DEFORMITY OF L2. DEGENERATIVE DISC DISEASE AND OSTEOARTHRITIS.
--- NOTE | 2018-02-28 12:18 | RAD ---
HISTORY: FALL ANKLE PAIN COMPARISONS: None VIEWS: 3, Frontal, lateral, and oblique views of the left ankle FINDINGS: BONE DENSITY: There is diffuse osteopenia. BONES: There is no displaced fracture. JOINTS: There is no arthropathy. ALIGNMENT: There is no dislocation. SOFT TISSUES: There is circumferential soft tissue swelling. OTHER FINDINGS: None. IMPRESSION: SOFT TISSUE SWELLING. NO ACUTE OSSEOUS INJURY. IF SYMPTOMS PERSIST, RECOMMEND REPEAT IMAGING.
--- NOTE | 2018-02-28 12:18 | RAD ---
HISTORY: FREQUENT FALLS, BRUISING COMPARISONS: None VIEWS: 3, Frontal internal rotation, external rotation, and outlet views of the left shoulder FINDINGS: BONE DENSITY: There is diffuse osteopenia. BONES: There is no displaced fracture. JOINTS: There is mild osteoporosis of the left AC joint. ALIGNMENT: There is no dislocation. SOFT TISSUES: Unremarkable. OTHER FINDINGS: None. IMPRESSION: NO ACUTE OSSEOUS INJURY. IF SYMPTOMS PERSIST, RECOMMEND REPEAT IMAGING.
[2018-02-28] MEDS ORDERED: Ondansetron INJ* 2 MG/ML VIAL IV PRN (14:32)
[2018-02-28] MEDS ORDERED: NS 0.9% 1000 ML* 1,000 ML IV SCH (14:45)
[2018-02-28] MEDS ORDERED: Thiamine IV 100 MG, Folic Acid IV* 1 MG, Multiple Vitamin IV ADULT* 10 ML in NS 0.9% 10... IV ONE (14:46)
[2018-02-28] MEDS ORDERED: Magnesium Sulfate 2 GM IV* 2 GM/50 ML BAG IVPB ONE (14:53)
[2018-02-28 15:02] LABS: INR 1.29 (0.77-1.02)
[2018-02-28 15:26] LABS: Urine Appearance Clear; Urine Blood 2+ (Negative); Urine Color Amber; Urine Ketones Negative (Negative); Urine Protein Negative (Negative); Urine Red Blood Cell 3+(>10/hpf) (Absent); Urine Specific Gravity 1.018 (1.010-1.030); Urine Urobilinogen Positive (Negative); Urine White Blood Cell Trace(0-5/hpf) (Absent)
--- NOTE | 2018-02-28 15:31 | RAD ---
HISTORY: falls pain COMPARISONS: None VIEWS: 5, Frontal view of the chest with frontal and oblique views of the left hemithorax FINDINGS: There is minimal cortical regularity of the left 10th rib. There is no appreciable pneumothorax. IMPRESSION: QUESTIONABLE NONDISPLACED FRACTURE OF THE LEFT 10TH RIB. NO APPRECIABLE PNEUMOTHORAX.
--- NOTE | 2018-02-28 15:57 | RAD ---
HISTORY: elevated lfts COMPARISONS: August 11, 2017 TECHNIQUE: Multiple transverse and longitudinal ultrasound images were obtained of the right upper quadrant of the abdomen using grayscale and color Doppler imaging. FINDINGS: LIVER: There is a micronodular contour to the liver. The liver is heterogeneous in echotexture. There are no focal hepatic parenchymal masses. There is normal hepatopedal flow of the portal vein on Doppler imaging. BILIARY TREE: There is no intrahepatic biliary dilatation. The common duct is not well-visualized GALLBLADDER: There is mild gallbladder wall thickening. There is no cholelithiasis, pericholecystic fluid, or sonographic sign. PANCREAS: The pancreas is obscured by overlying bowel gas. RIGHT KIDNEY: The right kidney is normal in shape, size, contour, and echogenicity. There is no hydronephrosis or nephrolithiasis. The right kidney measures 10.2 x 5.2 x 5.1 cm. AORTA AND IVC: The aorta and IVC are unremarkable. FLUID: There are no pleural effusions. There is no free fluid within the hepatorenal recess. OTHER FINDINGS: None. IMPRESSION: 1. NODULAR LIVER SUGGESTIVE OF CIRRHOSIS. 2. THERE IS MILD GALLBLADDER WALL THICKENING WITHOUT CHOLELITHIASIS OR SONOGRAPHIC HARRINGTON SIGN. THIS MAY BE REACTIVE FROM PERIHEPATIC INFLAMMATION OR MAY REFLECT HYPOPROTEINEMIA, THOUGH PRIMARY GALLBLADDER INFLAMMATORY PROCESS IS ALSO WITHIN THE DIFFERENTIAL.
--- NOTE | 2018-02-28 19:34 | HP ---
CC: Dr. Faria; Dr. Aguero * HISTORY AND PHYSICAL: DATE OF ADMISSION: 02/28/18 PRIMARY CARE PROVIDER: Dr. Faria. MY ATTENDING PHYSICIAN WHILE IN THE HOSPITAL: Dr. Sagar Hill * (report dictated by Giovany Damico NP). CONSULTING NEUROLOGIST: Dr. Aguero. CHIEF COMPLAINT: 1. Falls. 2. Unsteady gait. HISTORY OF PRESENT ILLNESS: Mr. Martinez is a 72-year-old male patient. He carries a history of schizophrenia, history of hypertension, GERD, depression, and bipolar disorder. He is coming into the ED today because for the last week , he has had worsening falls, he has been falling almost every day, but he has noticed that his gait has been progressively getting worse over the last month he says that he reported that to Dr. Aguero, to me he was having a hard time telling that how long this has been going on for. He says that he has been falling. He says he has been having really unsteady gait. He has not had any trouble speech or weakness to one side. He denies any syncopal episode. There has been no chest pain. He denied having any shortness of breath. There has been no abdominal pain. There has been no nausea or vomiting or any dysurias or any frequencies. He does state that he does drink 1 can of beer a week. He denies having any recent change in medications and he says that he just was concerned because of the falls. He today tried getting out of bed and he could not. Anytime he went to go sit up, he was having pain in his lower spine. He eventually was able to get up and then when he got up, he fell he says because he said he was just so unsteady. He came into the ED today. There was concern because of his unsteady gait, falls. We were asked to evaluate for admission. PAST MEDICAL HISTORY: Significant for: 1. Schizophrenia. 2. Hypertension. 3. GERD. 4. Depression. 5. Bipolar disorder. PAST SURGICAL HISTORY: Denied. MEDICATIONS: His home medications include: 1. Prilosec 20 mg p.o. daily. 2. Navane 20 mg at bedtime. 3. Fluoxetine 80 mg daily. 4. Elavil 100 mg at bedtime. 5. Diovan/hydrochlorothiazide half a tablet p.o. daily. 6. Doxycycline 100 mg p.o. b.i.d. ALLERGIES TO MEDICATIONS: "This is from the patient; we need to clarify this with his PCP tomorrow, is YASHIRA and he spelled it "stellazine," I believe he is referring to "STELAZINE." FAMILY HISTORY: Mother had a history of breast cancer. Father had a history of dementia. SOCIAL HISTORY: He does not smoke. He says he drinks 1 can of beer a week. He lives alone. Surrogate decision maker is his brother, Agus. REVIEW OF SYSTEMS: There is no documented fever. He denied any significant weight change. There is no double vision. He denies having any ear discharge. There is no rhinorrhea. There is no sore throat. No thyroid enlargement. Denies having any chest pain. There is no orthopnea. There is no nocturnal dyspnea. Denies having any abdominal pain. There was no nausea, no vomiting. No dysuria, no frequency. No seizure, no loss of consciousness. No pruritus and no skin ulcerations. Review of 14 systems completed, all others negative. PHYSICAL EXAMINATION GENERAL: At this time, Mr. Martinez is a 72-year-old male patient. He is sitting in the ED stretcher. He does not appear to be in any acute distress. VITAL SIGNS: Blood pressure 150/97 with a pulse of 93, respirations 20, O2 sat 95%, temperature 99. HEENT: Head: Atraumatic, normocephalic. Eyes: EOMs are intact. Sclerae, he did have some icterus noted in his eyes, otherwise not pale. Throat: Oral mucosa appears to be dry. No oropharyngeal erythema. NECK: Supple. LUNGS: Clear to auscultation bilaterally. No wheezes, rales, or rhonchi. HEART: Sounds S1, S2. He had a regular rate and rhythm. He had no murmurs, rubs, or gallops. ABDOMEN: Soft, flat, nontender. Bowel sounds present. EXTREMITIES: Pulses were 2+ throughout. He had 5/5 strength. NEUROLOGIC: He is awake. He is alert. He does have an unsteady gait when I stood him up. He had negative Romberg. [id number] and xnqz-ya-[id number] were intact bilaterally. He was tremulous. Cranial nerves II through XII were intact. He did have 5/5 strength in the lower extremities and he had sensation intact bilaterally of the lower extremities. SKIN: Intact with the exception he had multiple areas of ecchymosis. DIAGNOSTIC STUDIES/LAB DATA: His labs today are revealing a WBC of 6.5, RBC of 3.82, hemoglobin 12.2, hematocrit of 36, platelet count 75. Sodium 138, potassium of 3.8, chloride of 106, bicarb 25, BUN 19, creatinine 0.69, glucose 117, lactic 1.7, calcium 8.7. His mag was 1.8. Total bili 3.7, AST 98, ALT 58 , alk phos 244. Ammonia was 58. Troponin 0.02. Albumin 3.1. TSH was 1.17. Serum alcohol was negative. Multiple imaging in the ED starting off CT brain, impression: No acute intracranial pathology. CT cervical spine showed degenerative disk disease and osteoarthritis, no acute osseous injuries to the cervical spine. CT maxillofacial with no facial fracture. Chest x-ray, no active cardiopulmonary disease. Lumbosacral, 4 views, stable age indeterminate compression fracture of the L2. Also on the lumbar spine x-ray, he did have degenerative disk disease and osteoarthritis. Shoulder, left, 2 views, no acute osseous injuries. If symptoms persist, recommend repeat imaging. Left ankle, soft tissue swelling, no acute osseous injury. If symptoms persist, recommend repeat imaging. EKG today does reveal normal sinus rhythm, rate of 91, he had no ST elevations or T-wave inversions. Old medical records were reviewed. ASSESSMENT AND PLAN: Mr. Martinez is a 72-year-old male patient coming in to the ED today with complaints of feeling unbalanced, unsteady gait, and multiple falls. On evaluation in the ED today, there was concern because of the falls. We were asked to evaluate for admission. He will be admitted under inpatient status for: 1. Falls. Etiology is unclear. Looking his labs, I noticed that he has thrombocytopenia. His bili is up and his AST and ALT are up. I am concerned that he may be drinking more than what he leads on to. He certainly could have neuropathy related to alcoholism. Unfortunately, I do not have a way to collaborate this. I am checking folate, B12. I am also getting an MRI of the brain. I do think that he has some type of neuropathy, and because of the unsteady gait, I want to rule out cerebrovascular accident, but I think that is unlikely. Also, the MRI would help us to look at the cerebellum to see if there is any atrophy. I am also going to get a MRI of the lower spine as well as the lumbar spine because of the compression fracture to better evaluate it. He is not having any neurological deficit. So, at this point, we will continue with pain control for that, but in terms of the unsteady gait, I will order PT. I will repeat his LFTs tomorrow and monitor them and get the ultrasound of the liver and we will check neuro checks. I did order an echo as well. We will place him on telemetry. I will check orthostatic blood pressures and we will continue to monitor him. 2. Lumbar compression fracture at L2. Again, at this point, he is not having any neurological deficits. We will repeat an MRI tomorrow. Consider neurosurgical input if needed, but at this point, I will continue with pain control. I have ordered Tylenol. 3. Hypertension. I will continue with Diovan without the hydrochlorothiazide. 4. Gastroesophageal reflux disease. Continue PPI therapy. 5. History of depression with schizophrenia and bipolar disorder. Continue with supportive care and continue meds as prescribed. 6. DVT prophylaxis. He has significant ecchymosis. He is thrombocytopenic. I am just going to put him on SCDs for the time being and then, we could certainly transition him to either subcu heparin or Lovenox in the next day or so. 7. Fluids, electrolytes, and nutrition. He can have a heart-healthy diet. 8. Code status. He wishes to be a DNR. TIME SPENT: On the admission was 60 minutes, greater than half time was spent face- to-face with the patient obtaining my history and physical; other half time was spent going over the plan of care with the patient and implementing the plan of care. I did discuss the plan of care with my attending, Dr. Hill , he is in agreement. GIOVANY DAMICO, CIRO [id number]/[place] #: [id number] JOEL
[2018-02-28] MEDS: Amitriptyline TAB* 100 MG PO SCH (19:57)
[2018-02-28] MEDS: THIOTHIXENE 10 MG PO SCH (19:57)
[2018-02-28] MEDS: Acetaminophen TAB* 325 MG PO PRN (20:15)
[2018-03-01 06:44] LABS: INR 1.3 (0.77-1.02)
[2018-03-01 06:45] LABS: ABS Basophils 0 10^3/ul (0-0.2); ABS Eosinophils 0.2 10^3/ul (0-0.6); ABS Lymphocytes 0.9 10^3/ul (1.0-4.8); ABS Monocytes 0.5 10^3/ul (0-0.8); ABS Nucleated RBC 0 10^3/ul; Eosinophil % 3.8 % (0-6); Hematocrit 32 % (42-52); Lymphocyte % 19.4 % (25-47); Mean Corpuscular HGB Conc 35 g/dl (31-36); Mean Corpuscular Hemoglobin 33 pg (27-31); Mean Corpuscular Volume 93 fL (80-94); Mean Platelet Volume 7.8 um3 (7.4-10.4); Nucleated Red Blood Cells % 0.1; Platelet Count 59 10^3/ul (150-450); Red Blood Count 3.38 10^6/ul (4.00-5.40); Red Cell Distribution Width 16 % (10.5-15); White Blood Count 4.5 10^3/ul (3.5-10.8)
[2018-03-01 07:07] LABS: EGFR Non-African American 125.9 (>60)
--- NOTE | 2018-03-01 07:53 | PN ---
Subjective Date of Service: 03/01/18 Interval History: Pt reports he feels "not bad". He states he has been falling more recently reporting a generalized sense of weakness. He denies passing out. He is noted to be jaundice on exam. Pt denies hx of liver cirrhosis. He denies drinking alcohol. Denies fever or chills. No abdominal pain. Denies distention above his baseline. Patient denies SOB. Reports low back pain rating 3/10. Denies rib pain. Denies numbness, tingling. No urinary or bowel incontinence Objective Active Medications: Acetaminophen (Tylenol Tab*) 650 mg PO Q4H PRN PRN Reason: FEVER/PAIN Last Admin: 02/28/18 20:15 Dose: 650 mg Amitriptyline HCl (Elavil Tab*) 100 mg PO BEDTIME [facility] Last Admin: 02/28/18 19:57 Dose: 100 mg Fluoxetine HCl (Prozac Cap*) 80 mg PO QAM [facility] Folic Acid (Folvite Tab*) 1 mg PO DAILY [facility] Sodium Chloride (Ns 0.9% 1000 Ml*) 1,000 mls @ 100 mls/hr IV PER RATE [facility] Last Admin: 02/28/18 17:57 Dose: 100 mls/hr Omeprazole (Prilosec Cap*) 20 mg PO DAILY [facility] Ondansetron HCl (Zofran Inj*) 4 mg IV Q6H PRN PRN Reason: NAUSEA Thiamine HCl (Vitamin B-1 Tab*) 100 mg PO DAILY [facility] Thiothixene (Navane Cap*) 20 mg PO BEDTIME [facility] Last Admin: 02/28/18 19:57 Dose: 20 mg Valsartan (Diovan Tab*) 160 mg PO DAILY [facility] Vital Signs - 8 hr 02/28/18 23:52 Pulse Rate 81 Respiratory 20 Rate Blood Pressure 117/74 (mmHg) O2 Sat by Pulse 96 Oximetry Oxygen Devices in Use Now: None Appearance: 72 to male A+Ox3 in NAD - answering questions appropriately Eyes: PERRLA, - - + scleral icterus Ears/Nose/Mouth/Throat: Mucous Membranes Moist Respiratory: Symmetrical Chest Expansion and Respiratory Effort Cardiovascular: NL Sounds; No Murmurs; No JVD, RRR, No Edema Abdominal: NL Sounds; No Tenderness; No Distention, - - obese Skin: - - generalized light yellowing of the skin. noted ecchymosis on lumbar area. Neurological: Alert and Oriented x 3, NL Sensation, NL Muscle Strength and Tone Lines/Tubes/Other Access: Clean, Dry and Intact Peripheral IV Nutrition: Taking PO's Result Diagrams: 03/01/18 06:28 03/01/18 06:28 Additional Lab and Data: Lab Results 02/28/18 02/28/18 02/28/18 Range/Units 09:36 09:36 09:36 WBC 6.5 (3.5-10.8) 10^3/ul RBC 3.82 L (4.00-5.40) 10^6/ul Hgb 12.2 L (14.0-18.0) g/dl Hct 36 L (42-52) % MCV 94 (80-94) fL MCH 32 H (27-31) pg MCHC 34 (31-36) g/dl RDW 16 H (10.5-15) % Plt Count 75 L (150-450) 10^3/ul MPV 8.0 (7.4-10.4) um3 Neut % (Auto) 87.9 H (38-83) % Lymph % (Auto) 5.2 L (25-47) % Ritchie % (Auto) 6.5 (0-7) % Eos % (Auto) 0.2 (0-6) % Baso % (Auto) 0.2 (0-2) % Absolute Neuts (auto) 5.8 (1.5-7.7) 10^3/ul Absolute Lymphs (auto) 0.3 L (1.0-4.8) 10^3/ul Absolute Monos (auto) 0.4 (0-0.8) 10^3/ul Absolute Eos (auto) 0 (0-0.6) 10^3/ul Absolute Basos (auto) 0 (0-0.2) 10^3/ul Absolute Nucleated RBC 0 10^3/ul Nucleated RBC % 0 Hem Pathologist Commnt Pending Sodium 138 (135-145) mmol/L Potassium 3.6 (3.5-5.0) mmol/L Chloride 106 (101-111) mmol/L Carbon Dioxide 25 (22-32) mmol/L Anion Gap 7 (2-11) mmol/L BUN 19 (6-24) mg/dL Creatinine 0.69 (0.67-1.17) mg/dL Est GFR ( Amer) 137.2 (>60) Est GFR (Non-Af Amer) 113.4 (>60) BUN/Creatinine Ratio 27.5 H (8-20) Glucose 117 H (70-100) mg/dL Lactic Acid 1.7 (0.5-2.0) mmol/L Calcium 8.7 (8.6-10.3) mg/dL Magnesium 1.8 L (1.9-2.7) mg/dL Total Bilirubin 3.70 H (0.2-1.0) mg/dL AST 98 H (13-39) U/L ALT 58 H (7-52) U/L Alkaline Phosphatase 244 H (34-104) U/L Troponin I 0.02 (<0.04) ng/mL Total Protein 6.4 (6.4-8.9) g/dL Albumin 3.1 L (3.2-5.2) g/dL Globulin 3.3 (2-4) g/dL Albumin/Globulin Ratio 0.9 L (1-3) TSH Pending Assess/Plan/Problems-Billing Assessment: 72 yo male with a PMH of bipolar schizophrenia, HTN, Depression, GERD, HTN who presented to the ED because last week he started having worsening falls reporting almost daily, reporting unsteady gait worsening over the last month - he reported due to not being able to get OOB 02/28 and when he did he fell he decided to come to the emergency department for evaluation. - Patient Problems (1) Transaminitis Comment: - suspect secondary to liver pathology - cirrohis noted on imaging and appears jaundice - GI to consult this evening - Dr. Santos to order further labs and work up. - ammonia high - start lactulose - low suspicion for SBP. (2) Falls Comment: -unclear etiology behind increased falls but possibly increased encephalopathy - has noted elevated ammonia?? - seen by neurology yesterday - do not see dicated consult - discussed with Dr. Du who will hold off on seeing the patient today because it appears the sign out was he had noted neuropthy and MRI brain is negative. (3) Rib fracture Comment: - questionable nondisplaced fracture of the left 10th rib. No pneumo (4) Thrombocytopenia Comment: - suspect secondary to liver pathology - repeat labs in am (5) Lumbar compression fracture Comment: - may benefit from a TSLO brace - NS consult ordered (6) HTN (hypertension) Comment: controlled continue Valsartan (7) GERD (gastroesophageal reflux disease) Comment: continue PPI (8) Schizoaffective disorder, bipolar type Status: Chronic Comment: - stable - continue amitriptyline and thiothixene (9) DVT prophylaxis Comment: - hold in the setting of signifcant thrombocytopenia (10) Full code status Status and Disposition: inpatient. Dispo to be determined
[2018-03-01] MEDS: Thiamine TAB* 100 MG TAB PO SCH (08:13)
[2018-03-01] MEDS: FLUoxetine CAP* 20 MG PO SCH (08:13)
[2018-03-01] MEDS: Valsartan TAB* 160 MG PO SCH (08:14)
[2018-03-01] MEDS: Omeprazole CAP* 20 MG PO SCH (08:14)
[2018-03-01] MEDS: Folic Acid TAB* 1 MG PO SCH (08:14)
--- NOTE | 2018-03-01 13:27 | RAD ---
HISTORY: comp fx COMPARISONS: L-spine dated February 28, 2018 TECHNIQUE: The following sequences were obtained of the lumbar spine: Sagittal and axial T1- and T2-weighted images, coronal T2-weighted images, and sagittal STIR images. FINDINGS: SPINAL CORD, CONUS, AND CAUDA EQUINA: The visualized spinal cord, conus, and cauda equina are normal in caliber, position, and signal intensity. ALIGNMENT: There is grade 1 anterolisthesis of L4 on L5. VERTEBRAL BODIES: There is anterior wedging with mild loss of vertebral body height at L2 with associated bone edema paralleling the superior endplate without significant osseous retropulsion. There is multilevel anterolateral marginal osteophyte formation. JOINTS: There is facet hypertrophic change along the lower lumbar spine. MUSCULATURE: Unremarkable INTERVERTEBRAL DISCS: There is diffuse loss of intervertebral disc height and T2 signal throughout the spine. AXIAL IMAGES: L1-L2: There is mild bilateral neuroforaminal narrowing. There is no significant central canal stenosis. L2-L3: There is no disc herniation, spinal stenosis, or neuroforaminal narrowing. L3-L4: There is mild bilateral neuroforaminal narrowing. There is no significant central canal stenosis. L4-L5: There is broad-based disc bulge/rolled disc. There is bilateral facet hypertrophy. There is moderate right and mild left neuroforaminal narrowing. There is no significant central canal stenosis. L5-S1: There is bilateral facet hypertrophy. There is no significant neural foraminal narrowing of central canal stenosis. SOFT TISSUES: Renal cysts are noted. 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 IMPRESSION: 1. SUBACUTE COMPRESSION FRACTURE OF L2 WITHOUT OSSEOUS RETROPULSION. 2. DEGENERATIVE DISC DISEASE AND OSTEOARTHRITIS. 3. THERE IS MULTILEVEL NEUROFORAMINAL NARROWING DESCRIBED ABOVE. 4. THERE IS NO SIGNIFICANT CENTRAL CANAL STENOSIS.
--- NOTE | 2018-03-01 13:38 | RAD ---
HISTORY: Unsteady gait COMPARISONS: CT of the brain February 28, 2018 TECHNIQUE: The following sequences were obtained of the head: Sagittal T1-weighted images, axial T2-weighted images, axial FLAIR images, axial susceptibility weighted images, axial T1-weighted images. Additionally, axial diffusion-weighted images were obtained with calculated apparent diffusion coefficients.. FINDINGS: HEMORRHAGE/INFARCT: There is no hemorrhage or acute infarct. MASSES/SHIFT: There is no mass or shift. EXTRA-AXIAL SPACES/MENINGES: There are no extra-axial fluid collections. SULCI AND VENTRICLES: There is symmetrical involutional changes. CEREBRUM: There is a mild degree of periventricular and subcortical white matter fluid hyperattenuation. There are no large focal masses, mass effect or midline shift. BRAINSTEM: There are no focal parenchymal abnormalities. CEREBELLUM: There are no focal parenchymal abnormalities. The cerebellar tonsils are normal in size and position. SELLA: The sella is normal. PINEAL: The pineal region is clear. CP ANGLE/TEMPORAL BONES: The labyrinthine structures are grossly normal. VESSELS: Normal flow-voids are noted within the visualized vertebral vasculature. DIFFUSION ABNORMALITIES: There are no diffusion abnormalities. PARANASAL SINUSES/MASTOIDS: The paranasal sinuses are clear. ORBITS: The orbits are unremarkable. BONES AND SOFT TISSUE: No bone or soft tissue abnormalities are noted. IMPRESSION: 1. NO MRI EVIDENCE OF AN ACUTE FOCAL OR TERRITORIAL INFARCTION. 2. FINDINGS ARE MOST CONSISTENT WITH INVOLUTIONAL CHANGES AND MILD CHRONIC MICROVASCULAR DISEASE. IF THERE IS CLINICAL CONCERN FOR DEMYELINATING DISEASE FURTHER CHARACTERIZATION COULD BE MADE WITH CONTRAST-ENHANCED MRI TO CORRELATE TO THE FLUID BRIGHT FOCI DESCRIBED ABOVE.
[2018-03-01] MEDS: Lactulose* 15 ML UDC PO SCH ×2 (16:00→21:01)
--- NOTE | 2018-03-01 17:53 | ECHO ---
Patient: MALORIE EGAN [facility] Rec#: [id number] : 1945 Date: 03/01/2018 Age: 72y Height: 168 cm / 66.1 in Weight: 75 kg / 165.3 lbs Sex: M BSA: 1.85 Room#: 435 Admit Date#: 02/28/2018 Type: Inpatient Referring: Giovany Damico NP Reading: Robbie Torres MD Bridge Attacher: Rita Carmen RDCS,RDMS CC: Alexandr Faria MD Transthoracic Echocardiogram Indication: TIA BP: 130/74 HR: 77 Rhythm: NSR Findings History: HTN Technical Comments: The study quality is good. Left Ventricle: The left ventricular chamber size is normal. Mild concentric left ventricular hypertrophy is observed. Global left ventricular wall motion and contractility are within normal limits. There is normal left ventricular systolic function. The estimated ejection fraction is 55-60%. There is an E to A reversal in the mitral valve flow pattern suggestive of diastolic dysfunction. Left Atrium: The left atrial chamber size is normal. Right Ventricle: The right ventricular chamber size and systolic function are within normal limits. Right Atrium: The right atrial cavity size is normal. Aortic Valve: The aortic valve is trileaflet. The aortic valve leaflets are mildly thickened. There is aortic annular calcification. There is a trace of aortic regurgitation. There is no evidence of aortic stenosis. Mitral Valve: There is mitral annular calcification. The mitral valve leaflets are mildly thickened. There is a trace of mitral regurgitation. There is no evidence of mitral stenosis. Tricuspid Valve: The tricuspid valve leaflets are normal. There is trace tricuspid regurgitation. No pulmonary hypertension is noted. Pulmonic Valve: The pulmonic valve appears normal. There is a trace pulmonic regurgitation. Pericardium: There is no significant pericardial effusion. Aorta: The ascending aorta is not well visualized. There is no dilatation of the aortic arch. The aortic root is normal in size. Pulmonary Artery: The main pulmonary artery appears normal. Venous: The inferior vena cava appears normal in size. There is an approximate 50% respiratory change in the inferior vena cava dimension. Summary: There was not any prior study for comparison. Conclusions Mild concentric left ventricular hypertrophy is observed. Global left ventricular wall motion and contractility are within normal limits. The estimated ejection fraction is 55-60%. There is a trace of aortic regurgitation. There is a trace of mitral regurgitation. There is trace tricuspid regurgitation. No pulmonary hypertension is noted. There is no significant pericardial effusion. Measurements Name Value Normal Range RVIDd (AP) 2D 3.1 cm (0.9 - 2.6) RVDdMajor (2D) 2.5 cm (2.2 - 4.4) RAd ISD 4CH 4.2 cm (3.4 - 4.9) RA (A4C)W 2.8 cm (2.9 - 4.6) IVSd (2D) 1.3 cm (0.6 - 1) LVPWd (2D) 1.2 cm (0.6 - 1) LVIDd (2D) 3.8 cm (3.6 - 5.4) LVIDs (2D) 2.9 cm - LV FS (2D) 24 % (25 - 45) Aortic Annulus 2 cm (1.4 - 2.6) Ao root diameter (2D) 3.4 cm (2.1 - 3.5) Aortic arch 3.1 cm (1.8 - 3.4) LA dimension (AP) 2D 4 cm (2.3 - 3.8) LAd ISD 4CH 5.1 cm (2.9 - 5.3) LA ISD 4CH W 3.9 cm (2.5 - 4.5) Name Value Normal Range LA ESV BP (A/L) index 21 ml/m2 - Name Value Normal Range MV E-wave Vmax 0.8 m/sec - MV deceleration time 114 msec - MV A-wave Vmax 0.9 m/sec - MV E:A ratio 0.9 ratio - P. vein S-wave Vmax 0.7 m/sec - P. vein D-wave Vmax 0.4 m/sec - P. vein S:D Vmax ratio 1.9 ratio - P. vein A-wave duration 98 msec - LV septal e' Vmax 0.06 m/sec - LV lateral e' Vmax 0.08 m/sec - LV E:e' septal ratio 14 ratio - LV E:e' lateral ratio 10 ratio - Name Value Normal Range AV Vmax 1.2 m/sec - AV VTI 24 cm - AV peak gradient 6 mmHg - AV mean gradient 3 mmHg - LVOT Vmax 1 m/sec - LVOT VTI 15.5 cm - LVOT peak gradient 4 mmHg - LVOT mean gradient 2 mmHg - SOLE Vmax 0.8 m/sec - Name Value Normal Range MV Vmax 1.2 m/sec - MV VTI 30.5 cm - MV peak gradient 6 mmHg - MV mean gradient 3 mmHg - MV PHT 94 msec - MVA (PHT) 2.3 cm2 - Name Value Normal Range TR Vmax 2.4 m/sec - TR peak gradient 23 mmHg - RAP 3 mmHg - RVSP 26 mmHg - IVC diameter 1.2 cm - Name Value Normal Range PV Vmax 0.8 m/sec - PV peak gradient 2.6 mmHg -
--- NOTE | 2018-03-01 20:45 | CONS ---
CC: Dr. Faria * CONSULTATION REPORT: DATE OF CONSULT: 03/01/18 REQUESTING PHYSICIAN: Rachael Sidhu NP NARRATIVE: Mr. Martinez is a pleasant 72-year-old gentleman, who came to the emergency room for falls. He states that he has been falling very frequently. In the emergency room, he did have labs and a liver ultrasound that show possible cirrhosis. The patient denies any history of liver disease in the past. No family history of liver disease. He states he drinks maybe 1 can of beer per week and no more. No new medications. PAST MEDICAL HISTORY: Significant for schizophrenia, hypertension, depression, bipolar, and GERD. PAST SURGICAL HISTORY: None. MEDICATIONS UPON ADMISSION: Include: 1. Doxy. 2. Hydrochlorothiazide. 3. Elavil. 4. Fluoxetine. 5. Navane. 6. Prilosec. ALLERGIES: To STELAZINE. FAMILY HISTORY: Breast cancer and dementia. SOCIAL HISTORY: No tobacco. Rare alcohol. REVIEW OF SYSTEMS: Twelve systems were reviewed and other than that mentioned in the HPI were unremarkable. PHYSICAL EXAM: Temperature is 98.9, blood pressure is 122/77, pulse is 81, respiratory rate of 24, O2 sat is 99% on room air. General: Chronically ill- appearing male, few abrasions on his face, in no apparent distress; alert, oriented, pleasant, and fluent. Neuro: No asterixis. HEENT: Mucous membranes are moist without lesions, ulcers, or exudate. Neck is supple. Trachea is midline. Head is normocephalic. Some trauma to his face. Heart: Regular rate and rhythm. Lungs: Clear to auscultation. Abdomen is obese. Positive bowel sounds. No dull flanks. No rebound. No guarding. Skin is warm and dry. DIAGNOSTIC STUDIES/LAB DATA: Labs of note, white count is 4.5, hemoglobin is 11 , platelets of 59 down from 75. INR is 1.3. Bilirubin is 3.7, AST is 76, ALT is 48, alk phos 201, albumin is 2.7. His ammonia went from 58 to 99. He also has a liver ultrasound, which reveals a nodular cirrhotic appearing liver. ASSESSMENT AND PLAN: A pleasant 72-year-old gentleman with likely cirrhosis, no clear etiology yet. I would like to check hepatitis A, B and C, autoimmune hepatitis, primary biliary cholangitis, transferrin and saturation to rule out hemochromatosis. This could be nonalcoholic steatohepatitis. He denies alcohol ; however, his AST is out of proportion to the ALT and that is related to any of his medications. We will continue to follow along once the blood work comes back. [id number]/[facility] [place] #: [id number] JOEL
[2018-03-01] MEDS: THIOTHIXENE 10 MG PO SCH (21:00)
[2018-03-01] MEDS: Amitriptyline TAB* 100 MG PO SCH (21:00)
--- NOTE | 2018-03-01 21:11 | CONS ---
CONSULTATION REPORT: DATE OF CONSULT: 03/01/18 PATIENT OF: Dr. Faria and Mookie. HISTORY OF PRESENT ILLNESS: This is a 72-year-old man I came to see yesterday for frequent falls and unsteady gait. The initial history was that this began in the past week, but he notes that it has been going on for at least a month to me and perhaps longer, seems like it has been getting worse recently. He has fallen several times off to either side and he has been unsteady. He has not had any speaking or unilateral weakness. No fainting. No headache. No double vision. He has had some pain in his lower spine. There has been no numbness. PAST MEDICAL HISTORY: He has a history of schizophrenia, hypertension, GERD, depression, bipolar disorder. PAST SURGICAL HISTORY: He has had no known surgeries. MEDICATIONS: Include: 1. Prilosec 20 mg daily. 2. Navane 20 mg at bedtime. 3. Fluoxetine 80 mg daily. 4. Elavil 100 mg at bedtime. 5. Diovan/hydrochlorothiazide half a tab a day. 6. Doxycycline 100 mg b.i.d. ALLERGIES: He is allergic to STELAZINE apparently. FAMILY HISTORY: Mother had breast cancer. Father had dementia. SOCIAL HISTORY: He does not smoke. He lives alone and says he only drinks 1 can of beer a day. REVIEW OF SYSTEMS: Negative in all 14 spheres per the patient's history. He was alert and appeared to be in no acute distress. PHYSICAL EXAM: Temperature is 99, respirations 20, pulse was 90, blood pressure 150/97. He was alert and oriented x3. Cranial nerves II through XII were intact other than he had coarse saccades upon tracking, but no nystagmus. Zykwvj-dh-jabm was intact, but he had tremor bilaterally. He had no liver flap. Fundi were benign. Strength is 5/5 in the upper and lower extremities with a shuffling/unsteady gait, but not particularly wide based. I was able to do a Romberg and he was slightly unsteady, but did not fall. He had multiple areas of ecchymoses. Chest clear. Cardiovascular: Regular rate and rhythm. Abdomen is soft with positive bowel sounds. DIAGNOSTIC STUDIES/LAB DATA: Labs included white count of 6.5, hematocrit of 36 , platelet count of 75,000. INR of 1.29. CMP was abnormal for a magnesium of 11.8, total bili 3.7, GGT of 379, AST of 96, ALT of 58, alk phos of 244, ammonia 58, vitamin B12 of 89, folate greater than 20. TSH 1.17. UA had 2+ blood. Toxicology showed serum alcohol less than 10. On his CT, how I read it, I suspect there was some atrophy including I could see cerebellar folia on his CT scan. His cervical CT scan showed degenerative disk disease. IMPRESSION: I discussed with Giovany Damico that this man's problems seem to be not acute enough to have a process such as Guillain-Genesee involved, but this seems to be more longstanding, this may be a combination of cerebellar problems and possibly neuropathy. He denies alcohol, but this could be chronic but progressive symptoms of alcohol abuse, especially given his hepatitis. Until the situation clarifies, I agree with the plans for treating him with thiamine and folate, and I will be checking an MRI, which will help elucidate central problems, and if need be, he may need an EMG nerve conduction study. I am signing him out to Dr. Hopkins, who will be following him up. [id number]/[facility] #: [id number] [facility]
[2018-03-02 05:24] LABS: ABS Basophils 0 10^3/ul (0-0.2); ABS Eosinophils 0.2 10^3/ul (0-0.6); ABS Lymphocytes 0.9 10^3/ul (1.0-4.8); ABS Monocytes 0.5 10^3/ul (0-0.8); ABS Neutrophils 3.4 10^3/ul (1.5-7.7); ABS Nucleated RBC 0 10^3/ul; Eosinophil % 4.3 % (0-6); Hematocrit 31 % (42-52); Hemoglobin 11.1 g/dl (14.0-18.0); Mean Corpuscular HGB Conc 35 g/dl (31-36); Mean Corpuscular Hemoglobin 33 pg (27-31); Mean Corpuscular Volume 93 fL (80-94); Mean Platelet Volume 7.5 um3 (7.4-10.4); Nucleated Red Blood Cells % 0.1; Platelet Count 67 10^3/ul (150-450); Red Blood Count 3.39 10^6/ul (4.00-5.40); Red Cell Distribution Width 16 % (10.5-15); White Blood Count 5.1 10^3/ul (3.5-10.8)
[2018-03-02 05:26] LABS: INR 1.27 (0.77-1.02)
[2018-03-02 05:38] LABS: EGFR Non-African American 125.9 (>60)
[2018-03-02] MEDS: Omeprazole CAP* 20 MG PO SCH (08:03)
[2018-03-02] MEDS: Lactulose* 15 ML UDC PO SCH ×4 (08:03→21:25)
[2018-03-02] MEDS: Valsartan TAB* 160 MG PO SCH (08:03)
[2018-03-02] MEDS: Thiamine TAB* 100 MG TAB PO SCH (08:03)
[2018-03-02] MEDS: FLUoxetine CAP* 20 MG PO SCH (08:03)
[2018-03-02] MEDS: Folic Acid TAB* 1 MG PO SCH (08:03)
[2018-03-02] MEDS: Acetaminophen TAB* 325 MG PO PRN ×2 (08:09→21:30)
[2018-03-02] MEDS ORDERED: Potassium Chloride LIQUID* 20 MEQ PACKET PO ONE (11:45)
--- NOTE | 2018-03-02 16:21 | PN ---
Subjective Date of Service: 03/02/18 Interval History: Patient feeling better today. Rather lethargic, states this is somewhat improved. Has been walking with a walker and feels unsteady still. Has been having 2 BMs a week. Denies F/C, N/V, abdominal pain, diarrhea, CP, SOB, Dysuria , dizziness, palpitations, or other pain. Patient denies again alcohol consumption. Patient cannot recall any possible exposures to Hepatitis C including IVDA or sexual exposure to a partner who was infected. Family History: Unchanged from Admission Social History: Unchanged from Admission Past Medical History: Unchanged from Admission Objective Active Medications: Acetaminophen (Tylenol Tab*) 650 mg PO Q4H PRN PRN Reason: FEVER/PAIN Last Admin: 03/02/18 08:09 Dose: 650 mg Amitriptyline HCl (Elavil Tab*) 50 mg PO BEDTIME [facility] Fluoxetine HCl (Prozac Cap*) 40 mg PO QAM [facility] Folic Acid (Folvite Tab*) 1 mg PO DAILY [facility] Last Admin: 03/02/18 08:03 Dose: 1 mg Lactulose (Lactulose*) 15 ml PO QID [facility] Last Admin: 03/02/18 13:57 Dose: 15 ml Omeprazole (Prilosec Cap*) 20 mg PO DAILY [facility] Last Admin: 03/02/18 08:03 Dose: 20 mg Ondansetron HCl (Zofran Inj*) 4 mg IV Q6H PRN PRN Reason: NAUSEA Thiamine HCl (Vitamin B-1 Tab*) 100 mg PO DAILY [facility] Last Admin: 03/02/18 08:03 Dose: 100 mg Thiothixene (Navane Cap*) 20 mg PO BEDTIME [facility] Last Admin: 03/01/18 21:00 Dose: 20 mg Valsartan (Diovan Tab*) 160 mg PO DAILY [facility] Last Admin: 03/02/18 08:03 Dose: 160 mg Vital Signs - 8 hr 03/02/18 11:32 Temperature 98.0 F Pulse Rate 83 Respiratory 19 Rate Blood Pressure 129/70 (mmHg) O2 Sat by Pulse 96 Oximetry Oxygen Devices in Use Now: None Appearance: Patient is a 72yo male who appears stated age and is sitting in the bed in [facility]. Eyes: PERRLA, - - Slight scleral icterus. Ears/Nose/Mouth/Throat: NL Teeth, Lips, Gums, Clear Oropharnyx, Mucous Membranes Moist Neck: NL Appearance and Movements; NL JVP, Trachea Midline Respiratory: Symmetrical Chest Expansion and Respiratory Effort, Clear to Auscultation Cardiovascular: NL Sounds; No Murmurs; No JVD, RRR, No Edema Abdominal: NL Sounds; No Tenderness; No Distention, No Hepatosplenomegaly, - - Obese, Negative Fluid Wave. Lymphatic: No Cervical Adenopathy Extremities: No Edema, No Clubbing, Cyanosis Skin: No Rash or Ulcers, No Nodules or Sclerosis Neurological: Alert and Oriented x 3, NL Sensation, NL Muscle Strength and Tone , - - Unsteasy gait. Result Diagrams: 03/02/18 05:06 03/02/18 05:06 Additional Lab and Data: Lab Results Microbiology and Other Data: Microbiology 02/28/18 15:10 Urine Culture - Final Urine Strep Group B Assess/Plan/Problems-Billing Assessment: 72 yo male with a PMH of bipolar schizophrenia, HTN, Depression, GERD, HTN who presented to the ED because last week he started having worsening falls reporting almost daily, reporting unsteady gait worsening over the last month - he reported due to not being able to get OOB 02/28 and when he did he fell he decided to come to the emergency department for evaluation. - Patient Problems (1) Falls Current Visit: Yes Status: Acute Comment: -unclear etiology behind increased falls but possibly increased encephalopathy - has noted elevated ammonia?? - seen by neurology yesterday - do not see dicated consult - discussed with Dr. Du who will hold off on seeing the patient today because it appears the sign out was he had noted neuropthy and MRI brain is negative. (2) Transaminitis Current Visit: Yes Status: Acute Code(s): R74.0 - NONSPEC ELEV OF LEVELS OF TRANSAMNS & LACTIC ACID DEHYDRGNSE SNOMED Code(s): 866969565 Comment: Stable levels. Unknown etiology. Not an alcoholic. Differential includes Infectious, Autoimmune , Medication Related, YANCEY. Cirrhosis noted on imaging and appears jaundiced GI consult appreciated. Acute hepatitis and autoimmune hepatitis panel pending. Hyperammonemia possibly leading to subclinical hepatic encephalopathy. Increase lactulose due to inadequate response. (3) Schizoaffective disorder, bipolar type Current Visit: Yes Status: Chronic Code(s): F25.0 - SCHIZOAFFECTIVE DISORDER , BIPOLAR TYPE SNOMED Code(s): 62673730 Comment: Euthymic Decrease amitriptyline, fluoxetine, and thiothixene due to concern for causing unsteadiness. (4) HTN (hypertension) Current Visit: Yes Status: Acute Code(s): I10 - ESSENTIAL (PRIMARY) HYPERTENSION SNOMED Code(s): 15601527 Comment: Normotensive, Continue Valsartan. (5) Lumbar compression fracture Current Visit: Yes Status: Acute Code(s): S32.000A - WEDGE COMPRESSION FRACTURE OF UNSP LUMBAR VERTEBRA, INIT SNOMED Code(s): 252132098 Comment: May benefit from a TSLO brace NS consult ordered and pending. (6) Thrombocytopenia Current Visit: Yes Status: Acute Code(s): D69.6 - THROMBOCYTOPENIA, UNSPECIFIED SNOMED Code(s): 737954839 Comment: Likely related to portal hypertension and splenic sequestration. Monitor, hold heparin. (7) GERD (gastroesophageal reflux disease) Current Visit: Yes Status: Chronic Code(s): K21.9 - GASTRO-ESOPHAGEAL REFLUX DISEASE WITHOUT ESOPHAGITIS SNOMED Code(s): 990607806 Comment: continue PPI (8) DVT prophylaxis Current Visit: Yes Status: Acute Code(s): EBI3057 - SNOMED Code(s): 991337755 Comment: SCDs in the setting of significant thrombocytopenia (9) Full code status Current Visit: Yes Status: Acute Code(s): Z78.9 - OTHER SPECIFIED HEALTH STATUS SNOMED Code(s): 615325098 Status and Disposition: inpatient. Dispo to be determined
[2018-03-02] MEDS: THIOTHIXENE 10 MG PO SCH (21:25)
[2018-03-02] MEDS: Amitriptyline TAB* 50 MG PO SCH (21:25)
--- NOTE | 2018-03-02 21:46 | PN ---
NEUROLOGY PROGRESS NOTE: DATE OF SERVICE: 03/02/18 REASON FOR FOLLOWUP: Frequent falls. CHIEF COMPLAINT: Aches and pains throughout the body after the falls. SUBJECTIVE: The patient is a 72-year-old man who has frequent falls and unsteady gait over the last 1 month. The falls are getting worse. He does not know why he is falling. He feels unsteady when he is on his feet. He feels like he swings towards the right and left. He denied any focal weakness. He denied any double vision or blurry vision. He denied any burning paresthesias, although over the 1 week, he has been complaining of slight numbness on the left leg associated with left leg swelling. The patient had a brain MRI completed on 03/01/18 that showed mild chronic microvascular disease with no evidence of acute infarction. He also had an MRI of the lumbar spine without contrast that showed a subacute compression fracture of L2 without osseous retropulsion. He has degenerative disk disease and osteoarthritis. There is multilevel neural foraminal narrowing, but no significant central canal stenosis. The patient had a transthoracic echo completed on 02/28/18 that was reported to show an ejection fraction of 55%. He had a cervical spine CT completed on 02/28/18 that was reported to show degenerative disk disease with no acute osseous injury to the cervical spine and no spinal stenosis. Laboratory data over the last 24 hours, WBC of 5.1, hemoglobin of 11, hematocrit of 31, platelets of 67. INR of 1.27. Sodium of 137, potassium is 3.2. AST 81, ALT 49. Ammonia 99. Troponin normal. Vitamin B12 of 1289. Folate greater than 20. TSH 1.17. Serum alcohol less than 10. MEDICATIONS: 1. Acetaminophen 650 mg p.o. every 4 hours. 2. Amitriptyline 100 mg p.o. at bedtime. 3. Fluoxetine 80 mg in the morning. 4. Lactulose. 5. Omeprazole. 6. Ondansetron. 7. Thiamine. 8. Thiothixene 20 mg at bedtime. 9. Valsartan 160 mg daily. REVIEW OF SYSTEMS: The patient denied any chest pain, shortness of breath, or palpitation. The patient denied any headaches, visual disturbance, or swallowing dysfunction. PHYSICAL EXAMINATION: Vitals: Temperature 98, pulse rate of 83, respiratory rate of 19, oxygen saturation of 96% on room air, and blood pressure is 129/70. General: A well-nourished, well-developed man who appears stated age. Head is normocephalic without any obvious abnormality. Eyes: Conjunctivae/corneas are clear. Neck is supple and symmetrical without any evidence of pain or rigidity. Lungs: Clear to auscultation bilaterally. Cardiovascular: Regular rhythm. Normal S1, S2. Extremities: Normal range of motion with no cyanosis. Skin: No skin lesions or lacerations. The patient has ecchymosis throughout the lumbar and cervical, thoracic, paraspinal regions. Psych: Affect is broad and normal mood. Neurological Examination: Mental status, the patient is awake , alert, oriented to person, place, time, and general circumstance. Speech and language including expression, naming, and repetition were assessed and found to be normal. Cranial Nerves: Pupils are equal, round, reactive to light, extraocular muscles are intact, there is no facial asymmetry. Tongue is symmetrical and midline with no atrophy or fasciculation. Motor Examination: No abnormal movement, no pronator drift. Normal bulk and tone throughout. He has 5/5 strength in the upper and lower extremities. Reflexes (right/left): Brachioradialis 1/1, biceps 1/1, triceps 1/1, patella 1/1, and ankle 0/1, plantarflexor/questionable mute and extensor response. Sensation, distal to proximal sensory gradient to light touch and pinprick demarcated at distal knee region bilaterally. He does have swelling in the left lower extremity. Vibration is intact 8 seconds at the toes bilaterally. Proprioception is intact. Coordination: Normal ylench-xg-alza and sxpg-rn-tyla testing bilaterally. Gait and station, wide base, cautious, slow and hesitant walking, fear of falling. He has some swing towards the right and left. Romberg sign was negative. ASSESSMENT: Mr. Atul Martinez is a 72-year-old man with recurrent falls in the setting of transaminitis and hyperammonemia. There was a concern that the patient may have underlying neuropathy. On examination, I could not find any impressive signs of neuropathy severe enough to be contributing to his falls. I suspect his falls are likely related to his hyperammonemic state. However, the etiology for the liver injury is unclear at this point and I suspect it has a lot to do with his current medication regimen. The patient is on significantly high dose of amitriptyline for his age. Amitriptyline itself can cause orthostatic hypotension leading to falls. Tricyclics antidepressant in the combination of SSRI increase the risk of falls in elderly. In addition, he is also taking thiothixene, which is a typical antipsychotic that may lead to extrapyramidal side effects, which includes orthostatic hypotension as well as gait abnormalities. Therefore, we have decided to cut down on his dose, especially both fluoxetine and amitriptyline in half. I contacted Clare and apparently the patient has been on the same dose since October 2016. There has been a decrease in the thiothixene dose from 30 to 20 over the last few months. It would be interesting to see over the next few days if his liver enzymes, especially the INR correct and return to normal. Other differential diagnosis may include hepatitis C related neuropathy. Hepatitis panel is pending. However, the patient denied any exposure to blood products or history of drug use. I will do an EMG/nerve conduction study of the lower extremity to evaluate for neuropathy tomorrow. I will continue to follow. TIME SPENT: I spent a total of 35 minutes and greater than 50% of that was spent directly reviewing the medical chart, obtaining history, examining the patient, and discussing the treatment plan as mentioned above. I also discussed this plan with Andrew who is following the patient. [id number]/[facility] #: [id number] MTDD
[2018-03-03 05:57] LABS: ABS Basophils 0 10^3/ul (0-0.2); ABS Eosinophils 0.2 10^3/ul (0-0.6); ABS Lymphocytes 0.9 10^3/ul (1.0-4.8); ABS Monocytes 0.4 10^3/ul (0-0.8); ABS Neutrophils 2.4 10^3/ul (1.5-7.7); ABS Nucleated RBC 0 10^3/ul; Eosinophil % 5.5 % (0-6); Hematocrit 31 % (42-52); Hemoglobin 10.8 g/dl (14.0-18.0); Lymphocyte % 23.5 % (25-47); Mean Corpuscular HGB Conc 35 g/dl (31-36); Mean Corpuscular Hemoglobin 32 pg (27-31); Mean Corpuscular Volume 93 fL (80-94); Nucleated Red Blood Cells % 0.2; Platelet Count 77 10^3/ul (150-450); Red Blood Count 3.34 10^6/ul (4.00-5.40); Red Cell Distribution Width 16 % (10.5-15)
[2018-03-03 06:01] LABS: INR 1.28 (0.77-1.02)
[2018-03-03 06:15] LABS: EGFR Non-African American 138.5 (>60)
[2018-03-03] MEDS: FLUoxetine CAP* 20 MG PO SCH (08:54)
[2018-03-03] MEDS: Lactulose* 15 ML UDC PO SCH ×3 (08:54→20:28)
[2018-03-03] MEDS: Omeprazole CAP* 20 MG PO SCH (08:55)
[2018-03-03] MEDS: Folic Acid TAB* 1 MG PO SCH (08:55)
[2018-03-03] MEDS: Thiamine TAB* 100 MG TAB PO SCH (08:55)
[2018-03-03] MEDS: Valsartan TAB* 160 MG PO SCH (08:55)
--- NOTE | 2018-03-03 14:39 | PN ---
Subjective Date of Service: 03/03/18 Interval History: Patient state he feels much better today. When asked to describe how he feels better he is unable to elaborate. Patient denies F/C, N/V, abdominal pain, diarrhea. Patient did have one BM today and yesterday. Patient denies CP or SOB. Patient is alert and oriented only to person and place. Able to identify year but not month. Family History: Unchanged from Admission Social History: Unchanged from Admission Past Medical History: Unchanged from Admission Objective Active Medications: Acetaminophen (Tylenol Tab*) 650 mg PO Q4H PRN PRN Reason: FEVER/PAIN Last Admin: 03/02/18 21:30 Dose: 650 mg Amitriptyline HCl (Elavil Tab*) 50 mg PO BEDTIME [facility] Last Admin: 03/02/18 21:25 Dose: 50 mg Fluoxetine HCl (Prozac Cap*) 40 mg PO QAM [facility] Last Admin: 03/03/18 08:54 Dose: 40 mg Folic Acid (Folvite Tab*) 1 mg PO DAILY [facility] Last Admin: 03/03/18 08:55 Dose: 1 mg Lactulose (Lactulose*) 30 ml PO TID [facility] Omeprazole (Prilosec Cap*) 20 mg PO DAILY [facility] Last Admin: 03/03/18 08:55 Dose: 20 mg Ondansetron HCl (Zofran Inj*) 4 mg IV Q6H PRN PRN Reason: NAUSEA Thiamine HCl (Vitamin B-1 Tab*) 100 mg PO DAILY [facility] Last Admin: 03/03/18 08:55 Dose: 100 mg Thiothixene (Navane Cap*) 20 mg PO BEDTIME [facility] Last Admin: 03/02/18 21:25 Dose: 20 mg Valsartan (Diovan Tab*) 160 mg PO DAILY [facility] Last Admin: 03/03/18 08:55 Dose: 160 mg Vital Signs - 8 hr 03/03/18 03/03/18 03/03/18 07:40 08:00 11:38 Temperature 98.3 F 98.0 F Pulse Rate 88 81 Respiratory 18 16 16 Rate Blood Pressure 152/80 133/80 (mmHg) O2 Sat by Pulse 96 98 Oximetry Oxygen Devices in Use Now: None Appearance: Patient is a 72yo male who appears stated age and is sitting in the bed in [facility]. Eyes: No Scleral Icterus, PERRLA Ears/Nose/Mouth/Throat: NL Teeth, Lips, Gums, Clear Oropharnyx, Mucous Membranes Moist Neck: NL Appearance and Movements; NL JVP, Trachea Midline Respiratory: Symmetrical Chest Expansion and Respiratory Effort, Clear to Auscultation Cardiovascular: NL Sounds; No Murmurs; No JVD, RRR, No Edema Abdominal: NL Sounds; No Tenderness; No Distention, No Hepatosplenomegaly, - - Negative Fluid Wave Lymphatic: No Cervical Adenopathy Extremities: No Edema, No Clubbing, Cyanosis Skin: No Rash or Ulcers, No Nodules or Sclerosis Neurological: NL Sensation, NL Muscle Strength and Tone, - - CN II-XII intact. Result Diagrams: 03/03/18 05:27 03/03/18 05:27 Additional Lab and Data: Lab Results Microbiology and Other Data: Microbiology 02/28/18 15:10 Urine Culture - Final Urine Strep Group B Assess/Plan/Problems-Billing Assessment: 72 yo male with a PMH of bipolar schizophrenia, HTN, Depression, GERD, HTN who presented to the ED because last week he started having worsening falls reporting almost daily, reporting unsteady gait worsening over the last month - he reported due to not being able to get OOB 02/28 and when he did he fell he decided to come to the emergency department for evaluation. - Patient Problems (1) Falls Current Visit: Yes Status: Acute Comment: Unclear etiology behind increased falls but possibly increased encephalopathy Has noted elevated ammonia. Will treat with lactulose for possible subclinical hepatic encephalopathy. Appreciate Neurology consult. Has no overt neuropathy and no spinal pathology. Will do nerve conduction study when available. Psychoactive and sedating medications doses halved except for Navane. MRI brain negative. PT/OT. Mobility improving. (2) Transaminitis Current Visit: Yes Status: Acute Code(s): R74.0 - NONSPEC ELEV OF LEVELS OF TRANSAMNS & LACTIC ACID DEHYDRGNSE SNOMED Code(s): 026425483 Comment: Stable levels. Unknown etiology. Not an alcoholic. Differential includes Infectious, Autoimmune , Medication Related, YANCEY. Cirrhosis noted on imaging and appears jaundiced GI consult appreciated. Acute hepatitis and autoimmune hepatitis panel pending. Hyperammonemia possibly leading to subclinical hepatic encephalopathy. Increase lactulose due to inadequate response. Hepatitis B antibodies negative. (3) Schizoaffective disorder, bipolar type Current Visit: Yes Status: Chronic Code(s): F25.0 - SCHIZOAFFECTIVE DISORDER , BIPOLAR TYPE SNOMED Code(s): 52328834 Comment: Euthymic Decrease amitriptyline, fluoxetine, due to concern for causing unsteadiness. Continue Navane. (4) HTN (hypertension) Current Visit: Yes Status: Acute Code(s): I10 - ESSENTIAL (PRIMARY) HYPERTENSION SNOMED Code(s): 66344221 Comment: Normotensive, Continue Valsartan. (5) Lumbar compression fracture Current Visit: Yes Status: Acute Code(s): S32.000A - WEDGE COMPRESSION FRACTURE OF UNSP LUMBAR VERTEBRA, INIT SNOMED Code(s): 177118395 Comment: May benefit from a TSLO brace NS consult ordered and pending. (6) Thrombocytopenia Current Visit: Yes Status: Acute Code(s): D69.6 - THROMBOCYTOPENIA, UNSPECIFIED SNOMED Code(s): 167152460 Comment: Likely related to portal hypertension and splenic sequestration. Monitor, hold heparin. (7) GERD (gastroesophageal reflux disease) Current Visit: Yes Status: Chronic Code(s): K21.9 - GASTRO-ESOPHAGEAL REFLUX DISEASE WITHOUT ESOPHAGITIS SNOMED Code(s): 708208620 Comment: continue PPI (8) DVT prophylaxis Current Visit: Yes Status: Acute Code(s): NWD7406 - SNOMED Code(s): 284465714 Comment: SCDs in the setting of significant thrombocytopenia (9) Full code status Current Visit: Yes Status: Acute Code(s): Z78.9 - OTHER SPECIFIED HEALTH STATUS SNOMED Code(s): 982658756 Status and Disposition: inpatient. Dispo to be determined
[2018-03-03] MEDS: Amitriptyline TAB* 50 MG PO SCH (20:27)
[2018-03-03] MEDS: THIOTHIXENE 10 MG PO SCH (20:27)
--- NOTE | 2018-03-03 21:18 | PN ---
CC: SOHAIL Peoples * NEUROLOGY PROGRESS NOTE: DATE OF SERVICE: 03/03/18 PRIMARY PROVIDER: SOHAIL Peoples. REASON FOR FOLLOWING: Frequent falls. CHIEF COMPLAINT: I feel better today. SUBJECTIVE: The patient slept well. He actually got up and walked to the bathroom today and did not have any unsteadiness in the gait. He did use an assistive device such as walker. He denied any numbness or tingling sensation in the hands or feet. He clarified this to his psychiatric history. The patient is diagnosed with schizoaffective disorder and bipolar. He has been on thiothixene, amitriptyline, and fluoxetine for over 2-3 years. He was happy that I decreased the dose of medication. He denied any suicide or homicide ideation. He denied any current depression and he is in an overall of good mood. MEDICATIONS: 1. Acetaminophen 650 mg p.o. every 4 hours as needed. 2. Amitriptyline that was decreased to 50 mg p.o. at bedtime. 3. Fluoxetine also decreased to 40 mg p.o. in the morning. 4. Folic acid. 5. Lactulose. 6. Omeprazole. 7. Ondansetron. 8. Thiamine. 9. Thiothixene 20 mg at bedtime. 10. Valsartan. REVIEW OF SYSTEMS: He denied any chest pain, shortness of breath, or palpitation. LABORATORY DATA: WBC of 4, hemoglobin of 10, hematocrit of 31, platelet function of 77. INR 1.28. Sodium 139, potassium 3.3, creatinine 0.58, direct bili 0, total bilirubin 3.20. AST 89, ALT 50, alkaline phosphatase 235. Hepatitis B surface antigen negative. PHYSICAL EXAMINATION: Vitals: Temperature 98, pulse of 81, respiratory rate 16 , oxygen saturation 98%, blood pressure 133/80. General: Well-nourished, well - developed man, in no acute distress. He resting in bed. He has normal range of motion of all 4 extremities. He has no cyanosis. The patient is awake, and alert and oriented to person, place, time, and general circumstances. Cranial Nerves: Pupils are equal round and reactive to light. Extraocular muscles are intact. Motor Examination: Normal movement. No pronator drift. He does have absent ankle reflex on the right, but present on the left. There is a questionable mute or extensor response on the left toe. He has mild distal to proximal sensory gradient to light touch and pinprick demarcated at the distal knee region bilaterally. Vibration is intact to 8 seconds at the toes bilaterally. Coordination is normal [id number]. ASSESSMENT: Mr. Atul Martinez is a 72-year-old with recurrent falls in the setting of transaminitis and hyperammonemia. He has no cognitive slowing or confusion. There was concern that he may have underlying neuropathy. The patient was on amitriptyline 100 mg, fluoxetine 40 mg and thiothixene 20 mg daily. Most of the current medications he is taking may increase his risk for falls by either causing a drowsy state or causing orthostatic hypotension. In addition, his hyperammonemic state may cause him to have falls. We will evaluate for neuropathy with an EMG nerve conduction study today. He has not had any change in his mood since reducing some of the antidepressant medications. Please consult physical therapy to work with the patient. I will continue to follow. [id number]/[facility] #: [id number] JOEL
[2018-03-04 06:44] LABS: ABS Basophils 0 10^3/ul (0-0.2); ABS Eosinophils 0.2 10^3/ul (0-0.6); ABS Lymphocytes 0.9 10^3/ul (1.0-4.8); ABS Monocytes 0.5 10^3/ul (0-0.8); ABS Nucleated RBC 0 10^3/ul; Eosinophil % 4.6 % (0-6); Hematocrit 34 % (42-52); Hemoglobin 12.1 g/dl (14.0-18.0); Lymphocyte % 19.7 % (25-47); Mean Corpuscular HGB Conc 35 g/dl (31-36); Mean Corpuscular Hemoglobin 33 pg (27-31); Mean Corpuscular Volume 93 fL (80-94); Nucleated Red Blood Cells % 0.1; Platelet Count 94 10^3/ul (150-450); Red Blood Count 3.68 10^6/ul (4.00-5.40); Red Cell Distribution Width 16 % (10.5-15); White Blood Count 4.6 10^3/ul (3.5-10.8)
[2018-03-04 06:54] LABS: EGFR Non-African American 135.8 (>60)
[2018-03-04] MEDS: FLUoxetine CAP* 20 MG PO SCH (08:50)
[2018-03-04] MEDS: Lactulose* 15 ML UDC PO SCH ×3 (08:50→20:40)
[2018-03-04] MEDS: Omeprazole CAP* 20 MG PO SCH (08:51)
[2018-03-04] MEDS: Folic Acid TAB* 1 MG PO SCH (08:51)
[2018-03-04] MEDS: Valsartan TAB* 160 MG PO SCH (08:51)
[2018-03-04] MEDS: Thiamine TAB* 100 MG TAB PO SCH (08:51)
[2018-03-04] MEDS ORDERED: Vitamin E CAP* 400 UNIT PO SCH (12:06)
[2018-03-04] MEDS: RiFAXimin* 550 MG TAB PO SCH ×2 (12:55→20:40)
[2018-03-04] MEDS: Magnesium Oxide TAB* 400 MG PO SCH (12:56)
[2018-03-04] MEDS: Vitamin E CAP* 400 UNIT PO SCH (12:56)
--- NOTE | 2018-03-04 16:12 | PN ---
Subjective Date of Service: 03/04/18 Interval History: Patient in good spirits today. Has no new complaints. Less unsteady when he walks. Less forgetful. Patient denies CP, SOB, N/V, abdominal pain, diarrhea, dizziness, F/C, dysuria, or other pain. Patient is amenable to STR due to safety awareness deficit. Family History: Unchanged from Admission Social History: Unchanged from Admission Past Medical History: Unchanged from Admission Objective Active Medications: Acetaminophen (Tylenol Tab*) 650 mg PO Q4H PRN PRN Reason: FEVER/PAIN Last Admin: 03/02/18 21:30 Dose: 650 mg Amitriptyline HCl (Elavil Tab*) 50 mg PO BEDTIME [facility] Last Admin: 03/03/18 20:27 Dose: 50 mg Fluoxetine HCl (Prozac Cap*) 40 mg PO QAM [facility] Last Admin: 03/04/18 08:50 Dose: 40 mg Folic Acid (Folvite Tab*) 1 mg PO DAILY [facility] Last Admin: 03/04/18 08:51 Dose: 1 mg Lactulose (Lactulose*) 30 ml PO TID [facility] Last Admin: 03/04/18 12:59 Dose: 30 ml Magnesium Oxide (Magox 400 Tab*) 400 mg PO DAILY [facility] Last Admin: 03/04/18 12:56 Dose: 400 mg Omeprazole (Prilosec Cap*) 20 mg PO DAILY [facility] Last Admin: 03/04/18 08:51 Dose: 20 mg Ondansetron HCl (Zofran Inj*) 4 mg IV Q6H PRN PRN Reason: NAUSEA Potassium Chloride (Klor Con Er Tab*) 10 meq PO DAILY [facility] Rifaximin (Xifaxan*) 550 mg PO BID [facility] Last Admin: 03/04/18 12:55 Dose: 550 mg Thiamine HCl (Vitamin B-1 Tab*) 100 mg PO DAILY [facility] Last Admin: 03/04/18 08:51 Dose: 100 mg Thiothixene (Navane Cap*) 20 mg PO BEDTIME [facility] Last Admin: 03/03/18 20:27 Dose: 20 mg Valsartan (Diovan Tab*) 160 mg PO DAILY [facility] Last Admin: 03/04/18 08:51 Dose: 160 mg Vitamin E (Vitamin E Cap*) 400 unit PO DAILY [facility] Last Admin: 03/04/18 12:56 Dose: 400 unit Vital Signs - 8 hr 03/04/18 03/04/18 12:18 15:27 Temperature 98.2 F 97.7 F Pulse Rate 80 81 Respiratory 18 20 Rate Blood Pressure 130/75 128/79 (mmHg) O2 Sat by Pulse 99 98 Oximetry Oxygen Devices in Use Now: None Appearance: Patient is a 72yo male who appears stated age and is sitting in the bed in NAD. Eyes: PERRLA, - - Slight scleral icterus. Ears/Nose/Mouth/Throat: NL Teeth, Lips, Gums, Clear Oropharnyx, Mucous Membranes Moist Neck: NL Appearance and Movements; NL JVP, Trachea Midline Respiratory: Symmetrical Chest Expansion and Respiratory Effort, Clear to Auscultation Cardiovascular: NL Sounds; No Murmurs; No JVD, RRR Abdominal: NL Sounds; No Tenderness; No Distention, No Hepatosplenomegaly, - - No Signs of ascites. Lymphatic: No Cervical Adenopathy Extremities: No Edema, No Clubbing, Cyanosis Skin: No Rash or Ulcers, No Nodules or Sclerosis Neurological: Alert and Oriented x 3, NL Sensation, NL Muscle Strength and Tone , - - CN II-XII intact. No asterixis. Result Diagrams: 03/04/18 06:09 03/04/18 06:09 Additional Lab and Data: Lab Results Microbiology and Other Data: Microbiology 02/28/18 15:10 Urine Culture - Final Urine Strep Group B Assess/Plan/Problems-Billing Assessment: 72 yo male with a PMH of bipolar schizophrenia, HTN, Depression, GERD, HTN who presented to the ED because last week he started having worsening falls reporting almost daily, reporting unsteady gait worsening over the last month - he reported due to not being able to get OOB 02/28 and when he did he fell he decided to come to the emergency department for evaluation. - Patient Problems (1) Falls Current Visit: Yes Status: Acute Comment: Unclear etiology behind increased falls but possibly increased encephalopathy Has noted elevated ammonia. Will treat with lactulose and rifaximin for possible subclinical hepatic encephalopathy. Appreciate Neurology consult and Hepatology consult. Has no overt neuropathy and no spinal pathology. Will do nerve conduction study when available. Psychoactive and sedating medications doses halved except for Navane. MRI brain negative. PT/OT. Mobility improving. (2) Transaminitis Current Visit: Yes Status: Acute Code(s): R74.0 - NONSPEC ELEV OF LEVELS OF TRANSAMNS & LACTIC ACID DEHYDRGNSE SNOMED Code(s): 418015254 Comment: Stable levels. Unknown etiology. Not an alcoholic. Differential includes Infectious, Autoimmune , Medication Related, YANCEY. Cirrhosis noted on imaging and appears jaundiced GI consult appreciated. Acute hepatitis and autoimmune hepatitis panel pending. Hyperammonemia possibly leading to subclinical hepatic encephalopathy. Increase lactulose due to inadequate response. Hepatitis B antibodies negative. (3) Schizoaffective disorder, bipolar type Current Visit: Yes Status: Chronic Code(s): F25.0 - SCHIZOAFFECTIVE DISORDER , BIPOLAR TYPE SNOMED Code(s): 14023562 Comment: Euthymic Decrease amitriptyline, fluoxetine, due to concern for causing unsteadiness. Continue Navane. (4) HTN (hypertension) Current Visit: Yes Status: Acute Code(s): I10 - ESSENTIAL (PRIMARY) HYPERTENSION SNOMED Code(s): 12069719 Comment: Normotensive, Continue Valsartan. (5) Lumbar compression fracture Current Visit: Yes Status: Acute Code(s): S32.000A - WEDGE COMPRESSION FRACTURE OF UNSP LUMBAR VERTEBRA, INIT SNOMED Code(s): 356580848 Comment: May benefit from a TSLO brace NS consult ordered and pending. (6) Thrombocytopenia Current Visit: Yes Status: Acute Code(s): D69.6 - THROMBOCYTOPENIA, UNSPECIFIED SNOMED Code(s): 600349145 Comment: Likely related to portal hypertension and splenic sequestration. Monitor, hold heparin. Improving (7) GERD (gastroesophageal reflux disease) Current Visit: Yes Status: Chronic Code(s): K21.9 - GASTRO-ESOPHAGEAL REFLUX DISEASE WITHOUT ESOPHAGITIS SNOMED Code(s): 382237219 Comment: continue PPI (8) DVT prophylaxis Current Visit: Yes Status: Acute Code(s): FVJ5871 - SNOMED Code(s): 445485033 Comment: SCDs in the setting of significant thrombocytopenia Encourage frequent ambulation. (9) Full code status Current Visit: Yes Status: Acute Code(s): Z78.9 - OTHER SPECIFIED HEALTH STATUS SNOMED Code(s): 005889529 Status and Disposition: inpatient. Will need STR.
[2018-03-04] MEDS: Amitriptyline TAB* 50 MG PO SCH (20:40)
[2018-03-04] MEDS: THIOTHIXENE 10 MG PO SCH (20:40)
[2018-03-05 06:47] LABS: ABS Basophils 0 10^3/ul (0-0.2); ABS Eosinophils 0.2 10^3/ul (0-0.6); ABS Lymphocytes 0.9 10^3/ul (1.0-4.8); ABS Monocytes 0.6 10^3/ul (0-0.8); ABS Neutrophils 3.3 10^3/ul (1.5-7.7); ABS Nucleated RBC 0 10^3/ul; Eosinophil % 4.4 % (0-6); Hematocrit 32 % (42-52); Hemoglobin 11.2 g/dl (14.0-18.0); Mean Corpuscular HGB Conc 35 g/dl (31-36); Mean Corpuscular Hemoglobin 32 pg (27-31); Mean Corpuscular Volume 93 fL (80-94); Mean Platelet Volume 7.9 um3 (7.4-10.4); Nucleated Red Blood Cells % 0; Platelet Count 97 10^3/ul (150-450); Red Blood Count 3.48 10^6/ul (4.00-5.40); Red Cell Distribution Width 16 % (10.5-15); White Blood Count 5.1 10^3/ul (3.5-10.8)
[2018-03-05 06:57] LABS: EGFR Non-African American 128.3 (>60)
[2018-03-05 07:57] VITALS: BP 135/75
[2018-03-05] MEDS ORDERED: Magnesium Sulfate 2 GM IV* 2 GM/50 ML BAG IVPB ONE (08:06)
[2018-03-05] MEDS ORDERED: Potassium Chlor TAB* 10 MEQ TAB.ER PO SCH (09:00)
[2018-03-05] MEDS: RiFAXimin* 550 MG TAB PO SCH (09:43)
[2018-03-05] MEDS: FLUoxetine CAP* 20 MG PO SCH (09:43)
[2018-03-05] MEDS: Lactulose* 15 ML UDC PO SCH ×2 (09:43→09:44)
[2018-03-05] MEDS: Valsartan TAB* 160 MG PO SCH (09:43)
[2018-03-05] MEDS: Vitamin E CAP* 400 UNIT PO SCH (09:43)
[2018-03-05] MEDS: Magnesium Oxide TAB* 400 MG PO SCH (09:43)
[2018-03-05] MEDS: Thiamine TAB* 100 MG TAB PO SCH (09:43)
[2018-03-05] MEDS: Folic Acid TAB* 1 MG PO SCH (09:43)
[2018-03-05] MEDS: Omeprazole CAP* 20 MG PO SCH (09:43)
[2018-03-05] MEDS ORDERED: Lactulose* 15 ML UDC PO SCH ×2 (14:00→21:00)
--- NOTE | 2018-03-05 18:09 | DS ---
CC: Dr. Alexandr Faria; Dr. Santos; Dr. Aguero; Dr. Vijay Ballesteros * DISCHARGE SUMMARY: DATE OF ADMISSION: 02/28/18 DATE OF DISCHARGE: 03/05/18 PRIMARY CARE PROVIDER: Dr. Alexandr Faria. OUTPATIENT CONSULTANTS: 1. Outpatient software program manager, Dr. Santos. 2. Outpatient neurologist, Dr. Toñito Aguero. 3. Consulting neurosurgeon, Dr. Vijay Ballesteros. MY ATTENDING WHILE IN THE HOSPITAL: Princess Moyer MD.* (DICTATED BY SOHAIL SIFUENTES) PRIMARY DISCHARGE DIAGNOSES: 1. Cirrhosis with MELD score of 14. 2. Hyperammonemia with possible subclinical hepatic encephalopathy. 3. Possible neuropathy. SECONDARY DISCHARGE DIAGNOSES: 1. Schizoaffective disorder, bipolar type. 2. Depression. 3. Anxiety. 4. Gastroesophageal reflux disease. 5. Hypertension. STUDIES DONE WHILE IN THE HOSPITAL: Electrocardiogram from read as normal sinus rhythm, QTc of 521, rate of 91, no ST-segment abnormalities. Normal axis, no hypertrophy or enlargement. No other significant abnormalities. No prior studies to compare. Brain CT from 02/28/18 read as no acute intracranial pathology. Cervical spine CT from 02/28/18 read as degenerative disk disease and osteoarthritis, no acute osseous injury of the cervical spine. Maxillofacial CT from 02/28/18 read as no facial fracture. Chest x-ray from 02/28/18 read as no active cardiopulmonary disease. Lumbar spine x-ray from 02/28/18 read as stable, age indeterminate compression deformity of L2, degenerative disk disease and osteoarthritis. Shoulder from 02/28/18 shows no acute osseous injury, if symptoms persist, recommend repeat imaging. Ankle x-ray from 02/28/18 read as soft tissue swelling, no acute osseous injury , if symptoms persist, recommend repeat imaging. Liver ultrasound from 02/28/18 read as nodular liver suggestive of cirrhosis, there is mild gallbladder wall thickening without cholelithiasis or sonographic Haywood sign, this may be reactive perihepatic inflammation, may reflect hypoproteinemia, although primary gallbladder inflammation process is also in the differential. Rib x-rays from 02/28/18 read as questionable nondisplaced fracture of the left tenth rib, no appreciable pneumothorax. Transthoracic echocardiogram from 02/28/18 read as mild concentric left ventricular hypertrophy, global left ventricular wall motion and contractility within normal limits, estimated ejection fraction 55 to 60%, there was trace aortic regurgitation, there was trace mitral regurgitation and trace tricuspid regurgitation. No pulmonary hypertension, there is no significant pericardial effusion. Brain MRI from 03/01/18 read as no MRI findings of acute focal or territory lesion, findings are most consistent with involutional change and mild chronic microvascular disease. If there is clinical concern for demyelinating disease, further characterization could be made with a contrast enhanced MRI to correlate the fluid bright foci described above. Lumbar spine MRI from 03/01/18 read as subacute compression fracture of the L2 without osseous retropulsion. Degenerative disk disease and osteoarthritis, has multilevel neural foraminal narrowing as described above, there is no significant central canal stenosis. MEDICATIONS AT DISCHARGE: 1. Navane 20 mg p.o. at bedtime. 2. Omeprazole 20 mg p.o. daily. 3. Amitriptyline 50 mg p.o. at bedtime. 4. Fluoxetine 40 mg p.o. q.a.m. 5. Folic acid 1 mg p.o. daily. 6. Lactulose 30 mL p.o. b.i.d. 7. Magnesium oxide 400 mg p.o. daily. 8. Potassium chloride 10 mEq p.o. daily. 9. Xifaxan 500 mg p.o. b.i.d. 10. Thiamine 100 mg p.o. daily. 11. Losartan 150 mg p.o. daily. 12. Vitamin E 400 units p.o. daily. HOSPITAL COURSE: This is a brief summary of the patient's presentation. For more details, please see the history and physical from Giovany Damico NP, on . In brief, the patient is a 72-year-old male with past medical history significant for the above, with no known history of liver disease who presented to the emergency department with significantly worsening falls with worsening gait. The patient also had some confusion and felt very unsteady while walking. The patient had no focal neurological deficits. The patient had no recent change in his medications. The patient denied to drinking more than 1 can of beer daily. The patient was a poor historian. I was able to elucidate his clinical course but from collateral sources such as his primary care doctor and his family members, his mental status has been deteriorating moderately recently. The patient was seen in consultation by Dr. Toñito Aguero of Neurology who believed that there was some sort of neuropathy going on, he was unable to further characterize this due to unavailability of nerve conduction studies while in the hospital. MRI of the brain as above showing no CVA. The patient had a lumbar compression fracture at L2 which was not impinging on any nerve roots. The case was discussed with Dr. Vijay Ballesteros of Neurosurgery who said that he would see the patient as outpatient but nothing would be done inpatient. The patient had a liver ultrasound as above as well as elevated LFTs initially with an AST of 98, ALT of 58, alkaline phosphatase of 244 and bilirubin of 3.7. This is not believed to be a drug reaction with a low clinical suspicion as being related to his Navane as he has been stabilized in this therapy for years. The patient had negative autoimmune hepatitis antibody as well as acute viral hepatitis serology. The patient was not deemed to need a inpatient liver biopsy and was deemed appropriate for outpatient followup. The patient progressed with physical therapy and occupational therapy throughout his hospitalization; however it was deemed that he had significant safety-awareness deficit and given his frequent falls and likely given his forgetfulness, he would not use a walker. He was recommended for subacute rehab. The underlying cause of the patient's liver failure at this point was likely to be YANCEY given the lack of other obvious cause. This will be further elucidated with a liver biopsy. The patient was found to initially have hyperammonemia, possibly contributing to his forgetfulness and unsteady gait with subacute hepatic encephalopathy. The patient was started on lactulose and titrated up to 30 mL twice daily which was adequate in producing 2-3 loose bowel movements daily. The patient was also started on Xifaxan as well as vitamin E to help prevent further progression of his probable YANCEY as the patient has no known heart disease and/or diabetes. The patient was stable, amenable for discharge on 03/05/18. PHYSICAL EXAMINATION ON DAY OF DISCHARGE: General: The patient is a 72-year- old male, who appears stated age and is sitting comfortably in bed, in no acute distress. Vital signs at the time of evaluation: Temperature 98.1, pulse rate 86, respiratory rate 18, oxygen saturation 98% on room air, blood pressure 135/ 75. HEENT: Head, normocephalic, atraumatic. Slight scleral icterus. No conjunctival injection. Nasal mucosa moist. Oral mucosa moist. No pharyngeal erythema, discharge, or exudate. Neck: Supple, nontender. No lymphadenopathy. No carotid bruits auscultated. No JVD. Cardiac: Regular rate and rhythm. No clicks, murmurs, gallops, or rubs. Pulses are 2+ bilaterally on dorsalis pedis, posterior tibialis and radial areas, trace bilateral lower extremity edema noted. Respiratory: Clear to auscultation bilaterally. No wheezes, rales or rhonchi. Good air exchange bilaterally. Abdomen: Soft, nontender, nondistended. Negative fluid wave. No hepatosplenomegaly. No abdominal bruits auscultated. No hepatojugular reflux. Genitourinary: No suprapubic or CVA tenderness. Skin: Clean, dry and intact. No rash, no telangiectasias, spider angiomas or obvious jaundice. Neuro: Cranial nerves II through XII intact. No focal deficits. No asterixis , alert and oriented x3. No other focal deficits. Psychiatric: Pleasant and cooperative, somewhat of a flat affect. LABORATORY DATA ON DAY OF DISCHARGE: White blood cell count 5.1, hemoglobin 11.2, platelet count 97. Sodium 139, potassium 3.5, chloride 108, carbon dioxide 25, anion gap 6, BUN 15, creatinine 0.62, glucose 109, calcium 8.3, magnesium 1.8, bilirubin 3.2, AST 112, ALT 60, alkaline phosphatase 294, protein 5.7, albumin 2.7, globulin 3.0. DISCHARGE PLAN: The patient will be discharged to [facility] for subacute rehab with the goal for restoring his functional capacity particularly and helping with his balance and safety-awareness deficit with frequent reminders to use his walker as well as instructions on how to use his walker. The patient should follow up with Gastroenterology within 1 month and an appointment has been made for him on 04/08/18 at 1 p.m. Consideration at that time should be made for a liver biopsy. The patient should have repeat CBC, CMP and INR within one week. The patient should continue with his lactulose half dose increased or decreased to produce 2 to 3 loose bowel movements a day. The patient should also be continued on Xifaxan and vitamin E. The patient's Elavil and Prozac doses were decreased while he was in the hospital due to concerns for attributing to his balance issues. The patient's mood should be monitored for dysthymia. The patient should avoid known hepatotoxic drugs which is Tylenol. The patient should return to the hospital for severe falling with injury, chest pain or shortness of breath, severe altered mental status or other alarming symptoms. The patient should follow up with Dr. Ballesteros within 1 to 2 weeks for evaluation of his L2 compression fracture though it is deemed to be stable at this time. The patient should follow up with Dr. Aguero within 1 month for nerve conduction studies and evaluation of possible dementia, hepatic encephalopathy versus neuropathy. The patient should engage in activity as tolerated using his walker at all times as above and have a heart healthy diet, decaf okay. TIME SPENT: Approximately 60 minutes were spent on this discharge, 30 of which was spent [id number] with the patient obtaining the history and physical and discussing treatment plan. SOHAIL SIFUENTES [id number]/[facility] #: [id number] JOEL
--- NOTE | 2018-03-05 23:55 | PN ---
NEUROLOGY PROGRESS NOTE: This is a late entry. DATE OF SERVICE: 03/04/18 PRIMARY PROVIDER: SOHAIL Peoples REASON FOR FOLLOWING: Frequent falls. CHIEF COMPLAINT: "My gait is getting better today." SUBJECTIVE: The patient is slightly sad because he is going to be going to rehab facility where his father had . He denied any recent falls. He denied any focal weakness or paresthesias. He does state that he still feels slightly off balance when ambulating, but feels much better overall . MEDICATIONS: 1. Acetaminophen 650 mg p.o. every 4 hours as needed. 2. Amitriptyline 50 mg p.o. at bedtime. 3. Fluoxetine 40 mg p.o. in the morning. 4. Folic acid. 5. Lactulose. 6. Omeprazole. 7. Ondansetron. 8. Thiamine. 9. Thiothixene 20 mg at bedtime. REVIEW OF SYSTEMS: He denied any chest pain, shortness of breath, or palpitations. LABORATORY VALUES: WBC 4.6, hemoglobin 12, hematocrit 34, platelet count of 94. Sodium 138, potassiu m 3.6, chloride 107, carbon dioxide 25, creatinine 0.59, magnesium 1.8. Total bilirubin 3.7, direct bilirubin 1.5, indirect bilirubin 2.2, AST 104, ALT 58, alkaline phosphatase 284. Ammonia level is 8 7. PHYSICAL EXAMINATION: Vitals: Temperature 98.2, pulse rate of 80, respiratory rate of 18, oxygen sa turation 99%, blood pressure 130/75. The patient is resting comfortably, in no acute distress. He h as no cyanosis. He is moving all 4 extremities. He is awake, alert, oriented to person, place, time , and general circumstance. He had very subtle cogwheel rigidity on the left ankle. He has no maske d facies or hypophonia. He has no pronator drift. He does have absent reflex at the right ankle, bu t present on the left. Today, his Babinski was flexor bilaterally. He does have mild distal to prox imal sensory gradient to light touch and pinprick demarcated at the distal knee region bilaterally. Vibration is intact 8 seconds at the toes bilaterally. Coordination is normal [id number]. His g ait is wide based with mild ataxia towards the right side. ASSESSMENT AND RECOMMENDATIONS: Mr. Atul Martinez is a 72-year-old man with recurrent falls in the s etting of transaminitis and hyperammonemia. We have decreased his amitriptyline and fluoxetine in mosqueda lf, but he continues to take amitriptyline 50 mg and fluoxetine 40 mg daily. Differential diagnosis for his falls is unknown, but it is broad and includes possible medication-induced, sensory ataxia re lated to neuropathy, or possible loss of locomotion function in the setting of hyperammonemia. He do es not seem to be encephalopathic and liver abnormality can possibly be related to YANCEY or fatty live r disease. He will need biopsy as an outpatient. In the meantime, he feels that his gait has slight ly improved after decreasing the amitriptyline and fluoxetine. I encouraged him to discuss reduce in thiothixene with his psychiatrist, Dr Rodrigez. Thiothixene is a typical antipsychotic and the patien t may have some gait abnormality related to an extrapyramidal side effects of this medication. In th e meantime, I recommend rehabilitation and physical therapy to improve his balance and gait. I would like him to be seen by our neurologist in 3 to 4 weeks. [id number]/[facility] #: [id number]
== END 2018-03-05 12:00 | DRG 433 ==
LOC: ED 08:54 → MEDTELE 14:26
PROVIDERS: ADMIT Student in an Organized Health Care Education/Training Program; ATTEND Internal Medicine
DX: K74.69 Other cirrhosis of liver (principal); M48.56XA Collapsed vertebra, not elsewhere classified, lumbar region, initial encounter for fracture; K72.90 Hepatic failure, unspecified without coma; I10 Essential (primary) hypertension; K21.9 Gastro-esophageal reflux disease without esophagitis; R29.6 Repeated falls; E86.0 Dehydration; F25.0 Schizoaffective disorder, bipolar type; D69.6 Thrombocytopenia, unspecified; G62.9 Polyneuropathy, unspecified; F32.9 Major depressive disorder, single episode, unspecified; M50.30 Other cervical disc degeneration, unspecified cervical region; M47.812 Spondylosis without myelopathy or radiculopathy, cervical region; M51.36 Other intervertebral disc degeneration, lumbar region; M47.816 Spondylosis without myelopathy or radiculopathy, lumbar region; I08.3 Combined rheumatic disorders of mitral, aortic and tricuspid valves; M48.061 Spinal stenosis, lumbar region without neurogenic claudication; K75.81 Nonalcoholic steatohepatitis (NASH); Z88.8 Allergy status to other drugs, medicaments and biological substances; Z80.3 Family history of malignant neoplasm of breast; Z82.0 Family history of epilepsy and other diseases of the nervous system; Z84.2 Family history of other diseases of the genitourinary system; Z72.89 Other problems related to lifestyle; Z87.891 Personal history of nicotine dependence
CPT/HCPCS: 36415; 70450; 70486; 70551; 71045; 72100; 72110; 72125; 72148; 76705; 80048; 80053; 80074; 80076; 80320; 81003; 81015; 82140; 82607; 82728; 82746; 82977; 83516; 83540; 83550; 83605; 83735; 84443; 84484; 85025; 85060; 85610; 86038; 87077; 87086; 87340; 93005; 93306; 99284; A9270-GY; G0480; G8978-GP-CJ; G8979-GP-CI; J3411; J3475

== ENCOUNTER 2018-04-02 11:38 | Emergency (ER) | payer MEDICARE ==
--- NOTE | 2018-04-02 12:05 | ED ---
Abdominal Pain/Male - HPI Summary HPI Summary: A 72 y/o M with pert PMHx: YANCEY presents to ED with c/o abd distension onset past few days. Per nephew, pt was recently discharged from [facility], afterwards he was in [place] for 3 weeks and recently returned to his home. His visiting nurse saw him today and suggested he be evaluated in ED. Associated sx: GONZALEZ. Denies CP, abd pain, vomiting. The distension is causing him to have difficulty ambulating. Is on Lasix. Dr. Salazar is his PCP. He is supposed to f/u with Dr. Santos, GI, but has not scheduled anything. - History of Current Complaint Chief Complaint: EDAbdPain Stated Complaint: ABD PAIN Time Seen by Provider: 04/02/18 11:58 Hx Obtained From: Patient, Family/Nuclear Physics Professor - newphew Onset/Duration: Lasting Days, Still Present Timing: Constant, Lasting Days Severity Initially: Moderate Severity Currently: Moderate Pain Intensity: 0 Pain Scale Used: 0-10 Numeric Location: Diffuse Radiates: No Associated Signs And Symptoms: Positive: Other - see HPI. Negative: Chest Pain - Allergies/Home Medications Allergies/Adverse Reactions: Allergies Allergy/AdvReac Type Severity Reaction Status Date / Time No Known Allergies Allergy Verified 02/28/18 09:06 Home Medications: Home Medications Spironolactone TAB* [Aldactone TAB*] 25 mg PO DAILY 04/02/18 [History Confirmed 04/02/18] PMH/Surg Hx/FS Hx/Imm Hx Previously Healthy: No Endocrine/Hematology History: Denies: Hx Diabetes Cardiovascular History: Denies: Hx Hypertension, Hx Pacemaker/ICD GI History: Reports: Other GI Disorders - consipation Musculoskeletal History: Reports: Hx Back Problems Sensory History: Reports: Hx Contacts or Glasses Denies: Hx Hearing Aid Opthamlomology History: Reports: Hx Contacts or Glasses Neurological History: Reports: Hx Headaches Psychiatric History: Reports: Hx Schizophrenia, Hx Bipolar Disorder Denies: Hx Panic Disorder Infectious Disease History: No Infectious Disease History: Denies: Traveled Outside the [place] in Last 30 Days - Family History Known Family History: Positive: Other - Father had urinary infection with catheter put in place Negative: Hypertension, Diabetes - Social History Occupation: Retired Lives: Alone Alcohol Use: Weekly Alcohol Amount: can of Liller light per week Hx Substance Use: No Substance Use Type: Reports: None Hx Tobacco Use: Yes Smoking Status (MU): Former Smoker Review of Systems Negative: Fever, Chills Negative: Erythema Negative: Sore Throat Negative: Chest Pain Positive: Shortness Of Breath - GONZALEZ. Negative: Cough Gastrointestinal: Other - pos: abd distension Negative: Abdominal Pain, Vomiting, Nausea Negative: dysuria, hematuria Negative: Myalgia, Edema Negative: Rash Neurological: Other - neg: dizziness All Other Systems Reviewed And Are Negative: Yes Physical Exam - Summary Physical Exam Summary: Constitutional: Well-developed, Well-nourished, Alert. (-) Distressed Skin: Warm, Dry HENT: Normocephalic; Atraumatic Eyes: Conjunctiva normal Neck: Musculoskeletal ROM normal neck. (-) JVD, (-) Stridor, (-) Tracheal deviation Cardio: Rhythm regular, rate normal, Heart sounds normal; Intact distal pulses; The pedal pulses are 2+ and symmetric. Radial pulses are 2+ and symmetric. (-) Murmur Pulmonary/Chest wall: Bilat basilar crackles Abd: Soft, Distended, Ascites, (-) epigastric tenderness, (-) Guarding, (-) Rebound Musculoskeletal: (-) Edema Lymph: (-) Cervical adenopathy Neuro: Alert, Oriented x3 Psych: Mood and affect Normal Triage Information Reviewed: Yes Vital Signs On Initial Exam: Initial Vitals Temp Pulse Resp BP Pulse Ox 98.2 F 82 16 119/76 93 04/02/18 11:48 04/02/18 11:48 04/02/18 11:48 04/02/18 11:48 04/02/18 11:48 Vital Signs Reviewed: Yes Diagnostics - Vital Signs Vital Signs Temp Pulse Resp BP Pulse Ox 04/02/18 11:48 98.2 F 82 16 119/76 93 - Laboratory Result Diagrams: 04/02/18 12:13 04/02/18 12:13 Lab Statement: Any lab studies that have been ordered have been reviewed, and results considered in the medical decision making process. - Radiology CXR Xray Interpretation: Positive (See Comments) - IMPRESSION: Bilateral pleural effusions. Elevated right hemidiaphragm. Pleural effusions are new since February 28, 2018. ED provider has reviewed this report. Radiology Interpretation Completed By: Radiologist - EKG 1517 Cardiac Rate: NL - 81bpm EKG Rhythm: Sinus Rhythm EKG Interpretation: no STEMI Abdominal Pain Fem Course/Dx - Diagnoses Provider Diagnoses: Ascites, Hemorrhoid - Provider Notifications Discussed Care Of Patient With: Maykel Hill - hospitalist Time Discussed With Above Provider: 16:16 Instructed by Provider To: Other - Recommends paracentesis and D/C. Discharge - Sign-Out/Discharge Documenting (check all that apply): Patient Departure - DC - Discharge Plan Condition: Stable Disposition: HOME Patient Education Materials: Hemorrhoids (ED), Low-Sodium Diet (ED) Referrals: Alexandr Faria MD [Primary Care Provider] - [facility] [Outside] - 2 Days Konrad Santos MD [Medical Doctor] - 2 Days Additional Instructions: Return to the emergency department for changing or worsening symptoms. Pick-up Preparation H and Tucks pads from the pharmacy. Take warm baths to relieve the hemorrhoid. Recommend a low-salt diet. Follow up with [facility] and at the [facility] on Thursday. - Attestation Statements Document Initiated by Scribe: Yes Documenting Scribe: Crissy Ricardo Provider For Whom Scribe is Documenting (Include Credential): Dr. Yao Moran MD Scribe Attestation: I, Crissy Ricardo, scribed for Dr. Yao Moran MD on 04/02/18 at 1839. Consult Consult: AT 1830: CONSULT WITH DR. PAGAN, HOSPITALIST Performed paracentesis.
[2018-04-02] MEDS ORDERED: Furosemide IV* 10 MG/ML VIAL (40 MG) IV SLOW PU ONE (12:16)
[2018-04-02 12:26] LABS: ABS Basophils 0 10^3/ul (0-0.2); ABS Eosinophils 0.1 10^3/ul (0-0.6); ABS Lymphocytes 0.8 10^3/ul (1.0-4.8); ABS Monocytes 0.5 10^3/ul (0-0.8); ABS Neutrophils 3.6 10^3/ul (1.5-7.7); ABS Nucleated RBC 0 10^3/ul; Eosinophil % 2.1 % (0-6); Hematocrit 36 % (42-52); Hemoglobin 12.3 g/dl (14.0-18.0); Lymphocyte % 15.9 % (25-47); Mean Corpuscular HGB Conc 34 g/dl (31-36); Mean Corpuscular Hemoglobin 33 pg (27-31); Mean Corpuscular Volume 95 fL (80-94); Mean Platelet Volume 7.7 um3 (7.4-10.4); Nucleated Red Blood Cells % 0; Platelet Count 106 10^3/ul (150-450); Red Blood Count 3.77 10^6/ul (4.00-5.40); Red Cell Distribution Width 17 % (10.5-15)
[2018-04-02 12:49] LABS: EGFR Non-African American 55.6 (>60)
--- NOTE | 2018-04-02 15:48 | RAD ---
Indication: Shortness of breath. 2 views of the chest including dual energy PA views demonstrates elevated right hemidiaphragm. Small pleural effusions are noted. When compared to previous exam of February 28, 2018 pleural effusions appear new. Heart is of normal size and configuration. IMPRESSION: Bilateral pleural effusions. Elevated right hemidiaphragm. Pleural effusions are new since February 28, 2018.
[2018-04-02] MEDS ORDERED: Lidocaine 2% PF * 5 ML VIAL ONE (17:28)
[2018-04-02 19:09] VITALS: BP 118/58
--- NOTE | 2018-04-02 19:45 | CONSULT ---
Consult Consult: . HOSPITALIST PROCEDURE NOTE: PARACENTESIS Indication present for paracentesis: massive ascites and shortness of breath and difficulty eating due to ascites Discussed with patient, who agreed and consented based on risks & benefits explained. Labs reviewed (no coagulopathy noted). Materials collected and room set up Patient positioned and target site sterilized in the usual fashion with right side (entry site) dependent Completed physician-led time out reviewing patient name, procedure, indications , laterality, goals, etc. Site anesthetized with 2% lidocaine, in usual fashion Larger finder needle delivered deeper lidocaine and got drawback (flash) with yellow ascetic fluid (characteristic color noted) Catheter inserted through needle with ascites returning continually. Drained total of 4500 cc over 45 minutes with no report of discomfort or other difficulty. No complications noted at the time of this note.
[2018-04-05 14:37] LABS: Triglycerides (BF) 26 mg/dL
== END 2018-04-02 20:04 | disposition home or self-care (01) ==
LOC: ED 11:38
DX: R18.8 Other ascites (principal); K64.9 Unspecified hemorrhoids; R06.02 Shortness of breath; Z87.891 Personal history of nicotine dependence; R42 Dizziness and giddiness
CPT/HCPCS: 36415; 71046; 80053; 82150; 82945; 83605; 83615; 83690; 83880; 83930; 83986; 84157; 84478; 85025; 86140; 87040; 87205; 88112; 89051; 93005; 96374; 99284; J1940

== ENCOUNTER 2018-04-07 09:01 | Inpatient (IN) | payer MEDICARE ==
--- NOTE | 2018-04-07 09:34 | ED ---
Complex/Multi-Sys Presentation - HPI Summary HPI Summary: Patient is a 72-year-old male who presents emergency Department from home for frequent falls, generalized weakness and shortness of breath. She has a history of hepatic cirrhosis and had paracentesis done 04/02 for ascites. Patient states he fell today secondary to weakness and struck head. He denies loss of consciousness. Patient not some worsening shortness of breath and leg swelling over the last several days. He denies chest pain, abdominal pain, vomiting, diarrhea or nares symptoms, fever. Symptoms are moderate in severity. Activity makes symptoms worse. Nothing makes symptoms better. Past medical history of cirrhosis, bipolar, hypertension, GERD. - History Of Current Complaint Chief Complaint: EDWeakness Time Seen by Provider: 04/07/18 09:19 Hx Obtained From: Patient - Allergies/Home Medications Allergies/Adverse Reactions: Allergies Allergy/AdvReac Type Severity Reaction Status Date / Time trifluoperazine Allergy Unknown Verified 04/07/18 09:17 [From Stelazine] Reaction Details PMH/Surg Hx/FS Hx/Imm Hx Previously Healthy: Yes Endocrine/Hematology History: Denies: Hx Diabetes Cardiovascular History: Denies: Hx Hypertension, Hx Pacemaker/ICD GI History: Reports: Other GI Disorders - consipation Musculoskeletal History: Reports: Hx Back Problems Sensory History: Reports: Hx Contacts or Glasses Denies: Hx Hearing Aid Opthamlomology History: Reports: Hx Contacts or Glasses Neurological History: Reports: Hx Headaches Psychiatric History: Reports: Hx Schizophrenia, Hx Bipolar Disorder Denies: Hx Panic Disorder Infectious Disease History: No Infectious Disease History: Denies: Traveled Outside the [place] in Last 30 Days - Family History Known Family History: Positive: Other - Father had urinary infection with catheter put in place Negative: Hypertension, Diabetes - Social History Occupation: Retired Lives: Alone Alcohol Use: Weekly Alcohol Amount: can of Liller light per week Hx Substance Use: No Substance Use Type: Reports: None Hx Tobacco Use: Yes Smoking Status (MU): Former Smoker Review of Systems Constitutional: Negative Negative: Fever, Chills Eyes: Negative ENT: Negative Cardiovascular: Negative Negative: Chest Pain Positive: Shortness Of Breath. Negative: Cough Gastrointestinal: Negative Negative: Abdominal Pain, Vomiting, Diarrhea, Nausea Genitourinary: Negative Negative: dysuria Positive: Other - swelling lower legs Positive: Weakness - generalized. Negative: Headache, Paresthesia, Numbness, Syncope All Other Systems Reviewed And Are Negative: Yes Physical Exam Triage Information Reviewed: Yes Vital Signs On Initial Exam: Initial Vitals Temp Pulse Resp BP Pulse Ox 97.8 F 85 20 108/66 96 04/07/18 09:17 04/07/18 09:17 04/07/18 09:17 04/07/18 09:17 04/07/18 09:17 Vital Signs Reviewed: Yes Appearance: Positive: Ill-Appearing Skin: Positive: Warm, Dry, Jaundiced Head/Face: Positive: Normal Head/Face Inspection Eyes: Positive: Normal, EOMI Neck: Positive: Supple Respiratory/Lung Sounds: Positive: Decreased Breath Sounds Cardiovascular: Positive: Normal, RRR Abdomen Description: Positive: Other: - Distended, nontender. Musculoskeletal: Positive: Other - +2 bilateral pitting edema. Neurological: Positive: Normal, CN Intact II-III Psychiatric: Positive: Affect/Mood Appropriate - Harriet Coma Scale Best Eye Response: 4 - Spontaneous Best Motor Response: 6 - Obeys Commands Best Verbal Response: 4 - Confused Coma Scale Total: 14 Diagnostics - Vital Signs Vital Signs Temp Pulse Resp BP Pulse Ox 04/07/18 09:17 97.8 F 85 20 108/66 96 - Laboratory Result Diagrams: 04/07/18 09:35 04/07/18 09:35 Lab Statement: Any lab studies that have been ordered have been reviewed, and results considered in the medical decision making process. Complex Multi-Symp Course/Dx Course Of Treatment: Patient presenting for evaluation of frequent falls and generalized weakness and increased shortness of breath. He is afebrile with stable vital signs. Laboratory studies are relatively a patient's baseline INR given elevated d-dimer and ammonia. CTA was ordered to rule out PE. EKG done at 1012 shows a sinus rhythm of 81 bpm, prolonged QT interval, no ST elevation or depression. CTA is negative for PEs, nose bilateral small pleural effusions and moderate abdominal ascites, reading per radiology. Remainder of images are negative for acute findings reading per radiology. Patient resides at home by himself and does not have any help. Patient states it took 2 hours to put on his pants today. I spoke with patient's GI doctor, Dr. Santos, who reviewed labs. He feels pt. is stable from a GI stand point and pt. acutally has an apt. with him tomorrow. I'm concerned with sending patient home given his weakness and inability to ambulate. He also has a low platelet count and elevated INR which puts him at a risk for bleeding. Hospitalist was consulted and eventually accepted patient for admission for possible placement. - Diagnoses Provider Diagnoses: Cirrhosis, Weakness Discharge - Sign-Out/Discharge Documenting (check all that apply): Patient Departure - Discharge Plan Condition: Stable Disposition: ADMITTED TO [facility] - Billing Disposition and Condition Condition: STABLE Disposition: Admitted to [facility]
[2018-04-07 09:58] LABS: ABS Basophils 0 10^3/ul (0-0.2); ABS Eosinophils 0.1 10^3/ul (0-0.6); ABS Lymphocytes 0.7 10^3/ul (1.0-4.8); ABS Monocytes 0.6 10^3/ul (0-0.8); ABS Neutrophils 3.5 10^3/ul (1.5-7.7); ABS Nucleated RBC 0 10^3/ul; Eosinophil % 2.5 % (0-6); Hematocrit 37 % (42-52); Hemoglobin 12.4 g/dl (14.0-18.0); Lymphocyte % 14.6 % (25-47); Mean Corpuscular HGB Conc 34 g/dl (31-36); Mean Corpuscular Hemoglobin 32 pg (27-31); Mean Corpuscular Volume 96 fL (80-94); Mean Platelet Volume 8.4 um3 (7.4-10.4); Nucleated Red Blood Cells % 0.2; Platelet Count 128 10^3/ul (150-450); Red Blood Count 3.84 10^6/ul (4.00-5.40); Red Cell Distribution Width 17 % (10.5-15)
[2018-04-07 10:02] LABS: INR 1.31 (0.77-1.02)
[2018-04-07 10:19] LABS: EGFR Non-African American 56.1 (>60)
--- NOTE | 2018-04-07 10:20 | RAD ---
HISTORY: sob COMPARISONS: April 02, 2018 VIEWS: 2: Frontal and lateral views of the chest. FINDINGS: CARDIOMEDIASTINAL SILHOUETTE: The cardiomediastinal silhouette is normal. ITZEL: The itzel are normal. PLEURA: There is blunting of the costophrenic angles bilaterally. LUNG PARENCHYMA: The lung volumes are low. The lungs are clear. ABDOMEN: The upper abdomen is clear. There is no subphrenic gas. BONES AND SOFT TISSUES: No bone or soft tissue abnormalities are noted. OTHER: None. IMPRESSION: LOW LUNG VOLUMES. SMALL BILATERAL PLEURAL EFFUSIONS.
--- NOTE | 2018-04-07 10:23 | RAD ---
INDICATION: Neck pain after fall. CT of the cervical spine was obtained in the axial plane. Sagittal and coronal reconstructed images were obtained. There is motion artifact noted. The skull base demonstrates no fracture. Mastoid air cells are unremarkable. The C1 ring is grossly intact. No fracture is identified, although motion artifact limits evaluation. Remainder of the vertebral bodies demonstrates normal alignment. Disc space narrowing at C3-C4, C4-C5, C5-C6 and C6-C7 is noted with dorsal osteophyte formation. Motion artifact is noted at the posterior margin of the C3 and C2 vertebra. No obvious fractures are noted. Spinal canal is intact. The lung apices are unremarkable. IMPRESSION: No definite fracture of the cervical spine is noted. There is motion artifact present throughout the upper cervical vertebra. Multilevel degenerative disc disease is noted.
[2018-04-07] MEDS ORDERED: Iodixanol* (CONTRAST) 320 MG/ML 100 ML SDV IV ONE (10:47)
--- NOTE | 2018-04-07 11:36 | RAD ---
INDICATION: Shortness of breath, elevated d-dimer. COMPARISON: Correlation is made with a prior chest x-ray study from April 07, 2018 and a prior hepatic ultrasound from February 28, 2018. TECHNIQUE: A CT angiogram of the chest was performed with intravenous following intravenous injection of 74 ml of Omnipaque 350 nonionic contrast. Contiguous axial sections were obtained from the lung apices through the lung bases. Images were reconstructed in the coronal and sagittal planes. FINDINGS: PULMONARY ARTERIES: There is relatively homogeneous opacification of the pulmonary arteries. No intraluminal filling defect or pulmonary embolism is seen. HEART: The heart is within normal limits in size. No pericardial effusion is present. There are coronary calcifications present. THORACIC AORTA: The thoracic aorta is normal in caliber and demonstrates homogeneous contrast opacification. There is very mild calcific plaque present. LUNGS: The lungs are underinflated with more focal elevation of the right hemidiaphragm which appears unchanged. There are small bilateral pleural effusions. There are dependent bilateral lower lobe infiltrates suggestive of atelectasis. MEDIASTINUM: No significant enlarged mediastinal or hilar lymph nodes are seen. ABDOMEN: The liver is partially visualized and has a nodular appearance consistent with cirrhosis. No focal abnormality is seen on the visualized portion. There appears to be a moderate amount of ascites in the upper abdomen. BONES: There is a mild compression fracture of the superior endplate of the T10 vertebral body which is age indeterminate although likely subacute to chronic in duration. IMPRESSION: 1. NO EVIDENCE FOR PULMONARY EMBOLISM. 2. SMALL BILATERAL PLEURAL EFFUSIONS. 3. FINDINGS CONSISTENT WITH CIRRHOSIS. THERE IS A MODERATE AMOUNT OF ASCITES PRESENT. 4. MILD COMPRESSION FRACTURE OF THE T10 VERTEBRAL BODY LIKELY SUBACUTE TO CHRONIC IN DURATION.
--- NOTE | 2018-04-07 14:09 | RAD ---
HISTORY: fall COMPARISONS: None TECHNIQUE: Multiple contiguous axial CT scans were obtained of the head without intravenous contrast. FINDINGS: HEMORRHAGE/INFARCT: There is no hemorrhage or acute infarct. MASSES/SHIFT: There is no mass or shift. EXTRA-AXIAL SPACES: There are no extra-axial fluid collections. SULCI AND VENTRICLES: There is mild diffuse and proportional enlargement of the sulci and ventricles. CEREBRUM: There are no focal parenchymal abnormalities. BRAINSTEM: There are no focal parenchymal abnormalities. CEREBELLUM: There are no focal parenchymal abnormalities. VESSELS: The vessels are grossly normal. PARANASAL SINUSES: The paranasal sinuses are clear. ORBITS: The orbits are unremarkable. BONES AND SOFT TISSUE: No bone or soft tissue abnormalities are noted. OTHER: None IMPRESSION: NO ACUTE INTRACRANIAL PATHOLOGY.
--- NOTE | 2018-04-07 14:15 | ADMNOTE ---
Subjective Date of Service: 04/07/18 Interval History: ADMISSION HISTORY AND PHYSICAL EXAM: Allergies Allergy/AdvReac Type Severity Reaction Status Date / Time trifluoperazine Allergy Unknown Verified 04/07/18 09:17 [From Stelazine] Reaction Details Home Medications Medication Instructions Recorded Confirmed Type Omeprazole 20 mg PO DAILY 02/28/18 04/07/18 History Thiothixene CAP* [Navane CAP 10 20 mg PO BEDTIME 02/28/18 04/07/18 History MG*] Acetaminophen TAB* [Tylenol TAB*] 650 mg PO Q4H PRN tab 03/05/18 04/07/18 Rx Amitriptyline TAB* [Elavil TAB*] 50 mg PO BEDTIME tab 03/05/18 04/07/18 Rx FLUoxetine CAP* [Prozac CAP*] 40 mg PO QAM cap 03/05/18 04/07/18 Rx Folic Acid TAB* [Folvite TAB*] 1 mg PO DAILY tab 03/05/18 04/07/18 Rx Lactulose* 30 ml PO BID udc 03/05/18 04/07/18 Rx Magnesium Oxide TAB* [MagOx 400 400 mg PO DAILY tab 03/05/18 04/07/18 Rx TAB*] Potassium Chlor TAB* [Klor Con ER 10 meq PO DAILY tab.er 03/05/18 04/07/18 Rx TAB 10 MEQ*] RiFAXimin* [Xifaxan*] 550 mg PO BID tab 03/05/18 04/07/18 Rx Thiamine TAB* [Vitamin B-1 TAB 100 100 mg PO DAILY tab 03/05/18 04/07/18 Rx MG*] Valsartan TAB* [Diovan TAB*] 160 mg PO DAILY tab 03/05/18 04/07/18 Rx Vitamin E CAP* 400 unit PO DAILY #0 cap 03/05/18 04/07/18 Rx Spironolactone TAB* [Aldactone 25 mg PO DAILY 04/02/18 04/07/18 History TAB*] HPI: The patient states that he got out of bed this AM to go to the and fell. He could not get up but managed to call 911. He did not take any meds this AM or eat anything. No pain, SOB, cough. Appetite OK. He has been weak for some time. He states he takes all his meds. Family History: Findings - Father had dementia, mother had breast ca. Social History: Findings - Never smoked, no alcohol abuse. Lives alone at [place]. His brother Shahram Martinez is his SDM. Review of Systems - Measurements Intake and Output: Intake and Output Last 24 Hours 04/05/18 04/06/18 04/07/18 04/08/18 06:59 06:59 06:59 06:59 Weight 165 lb - Review of Systems Constitutional Symptoms: Negative: Weight Gain, Weight Loss, Weakness, Fatigue, Fever, Night Sweats, Unexplained Falls, Other Dermatology: Positive: Normal HEENT: Positive: Normal Eyes: Positive: Normal Thyroid: Positive: Normal Pulmonary: Positive: Normal Cardiology: Positive: Normal Gastroenterology: Positive: Normal Genital - Urinary: Positive: Normal Genitourinary - Male: Negative: Prostatism, Erectile Dysfunction, Family Hx of Prostate Cancer, Other Musculoskeletal: Negative: Joint Pain, Joint Stiffness, Arthritis, Osteoporosis, Low Back Pain , Sciatica, Joint Deformities, Kyphoscoliosis, Other Endocrinology: Positive: Normal Hematologic/Lymphatic: Negative: Anemia, Easy Brusing, Hx Leukemia, Hx Lymphoma, Use of Anticoagulant, Use of Antiplatelet Drugs, Other Neurology: Positive: Unexplained Weakness, Other - fuzzy thinking Psychiatry: Positive: Other - hx schizophrenia and bipolar disorder Allergic/Immunologic: Negative: Hx Anaphylaxis, Hx Angioedema, Hx Environmental, Hx Seasonal, Athsma, Hx HIV, Immunocompromise, Swollen Glands LymphNodes, Other Objective Active Medications: Amitriptyline HCl (Elavil Tab*) 25 mg PO BEDTIME ANY Fluoxetine HCl (Prozac Cap*) 20 mg PO QAM ANY Heparin Sodium (Porcine) (Heparin Vial(*)) 5,000 units SUBCUT Q12HR ANY Lactulose (Lactulose*) 30 ml PO TID ANY Magnesium Oxide (Magox 400 Tab*) 400 mg PO DAILY ANY Omeprazole (Prilosec Cap*) 20 mg PO DAILY ANY Rifaximin (Xifaxan*) 550 mg PO BID ANY Spironolactone (Aldactone Tab*) 25 mg PO DAILY ANY Thiothixene (Navane Cap*) 10 mg PO BEDTIME ANY Valsartan (Diovan Tab*) 80 mg PO DAILY ANY Vital Signs - 8 hr 04/07/18 04/07/18 04/07/18 09:13 09:14 09:17 Temperature 97.8 F Pulse Rate 85 85 Respiratory 9 9 20 Rate Blood Pressure 108/66 108/66 (mmHg) O2 Sat by Pulse 96 96 Oximetry 04/07/18 04/07/18 04/07/18 10:11 11:14 12:00 Temperature Pulse Rate 80 86 Respiratory 13 12 24 Rate Blood Pressure (mmHg) O2 Sat by Pulse 97 98 Oximetry 04/07/18 04/07/18 04/07/18 12:01 12:16 12:31 Temperature Pulse Rate 86 84 87 Respiratory 23 18 16 Rate Blood Pressure 122/82 111/76 119/80 (mmHg) O2 Sat by Pulse 98 96 97 Oximetry 04/07/18 12:46 Temperature Pulse Rate 87 Respiratory 23 Rate Blood Pressure 134/88 (mmHg) O2 Sat by Pulse 97 Oximetry Oxygen Devices in Use Now: None Appearance: Alert, somewhat slow to respond. Cooperative. Looks comfortable. Neutral affect. Eyes: - - icterus present Neck: NL Appearance and Movements; NL JVP, No Thyroid Enlargement, Masses Respiratory: Symmetrical Chest Expansion and Respiratory Effort, Clear to Auscultation, Clear to Percussion, - - some tachypnea Cardiovascular: NL Sounds; No Murmurs; No JVD, RRR, No Edema, - Abdominal: - - Distended, dull flanks. Not tense. Nl BS. Extremities: No Edema, No Clubbing, Cyanosis, - Skin: No Rash or Ulcers, No Nodules or Sclerosis, - Neurological: NL Sensation, - - Asterixis present. Needs assist to get in or out of the ED stretcher. Gait very tiny, hesitant, need assist to move. Result Diagrams: 04/07/18 09:35 04/07/18 09:35 Assess/Plan/Problems-Billing Assessment: - Patient Problems (1) Cirrhosis Current Visit: Yes Status: Acute Comment: Advancing cirrhosis with very high ammonia level. Increase lactulose to 30 ml tid, will only get 2 doses DOA. I reduced the dose of all his psych meds by 50%. I would repeat his ammonia level and CMP 04/09. Liver failure probably explains most of his weakness/gait disorder. (2) Gait disorder Current Visit: Yes Status: Acute Code(s): R26.9 - UNSPECIFIED ABNORMALITIES OF GAIT AND MOBILITY SNOMED Code(s): 50098381 Comment: Liver failure probably explains most of his weakness/gait disorder. PT/OT requested. (3) Schizoaffective disorder, bipolar type Current Visit: No Status: Chronic Code(s): F25.0 - SCHIZOAFFECTIVE DISORDER , BIPOLAR TYPE SNOMED Code(s): 34431955 Comment: I decreased fluoxetine, thiothixene, amitriptyline 50% in admission. (4) HTN (hypertension) Current Visit: No Status: Acute Code(s): I10 - ESSENTIAL (PRIMARY) HYPERTENSION SNOMED Code(s): 41555276 Comment: I decreased valsartan 50% on admission. (5) GERD (gastroesophageal reflux disease) Current Visit: No Status: Chronic Code(s): K21.9 - GASTRO-ESOPHAGEAL REFLUX DISEASE WITHOUT ESOPHAGITIS SNOMED Code(s): 722983235 Comment: continue PPI
[2018-04-07] MEDS: Spironolactone TAB* 25 MG PO SCH (15:46)
[2018-04-07] MEDS: Lactulose* 15 ML UDC PO SCH ×2 (15:47→20:06)
[2018-04-07 17:15] LABS: Urine Appearance Clear; Urine Blood Negative (Negative); Urine Color Amber; Urine Ketones Negative (Negative); Urine Protein Negative (Negative); Urine Specific Gravity 1.039 (1.010-1.030); Urine Urobilinogen Positive (Negative)
[2018-04-07] MEDS: Acetaminophen TAB* 325 MG PO PRN (20:05)
[2018-04-07] MEDS: Amitriptyline TAB* 50 MG PO SCH (20:05)
[2018-04-07] MEDS: Heparin VIAL(*) 5000 UNITS/ML VIAL (FIVE THOUSAND) SUBCUT SCH (20:06)
[2018-04-07] MEDS: RiFAXimin* 550 MG TAB PO SCH (20:09)
[2018-04-07] MEDS: THIOTHIXENE 10 MG PO SCH (20:09)
[2018-04-07] MEDS ORDERED: Lactulose* 15 ML UDC PO SCH (21:00)
[2018-04-08] MEDS: Hydrocortisone SUPP* 25 MG SUPP (2.5%) PR PRN (00:08)
[2018-04-08] MEDS: Acetaminophen TAB* 325 MG PO PRN ×3 (01:59→20:24)
[2018-04-08] MEDS: Heparin VIAL(*) 5000 UNITS/ML VIAL (FIVE THOUSAND) SUBCUT SCH ×2 (09:40→20:24)
[2018-04-08] MEDS: Omeprazole CAP* 20 MG PO SCH (09:40)
[2018-04-08] MEDS: Magnesium Oxide TAB* 400 MG PO SCH (09:40)
[2018-04-08] MEDS: Spironolactone TAB* 25 MG PO SCH (09:40)
[2018-04-08] MEDS: Valsartan TAB* 80 MG PO SCH (09:40)
[2018-04-08] MEDS: Lactulose* 15 ML UDC PO SCH ×2 (09:41→13:56)
[2018-04-08] MEDS: FLUoxetine CAP* 20 MG PO SCH (09:41)
[2018-04-08] MEDS: RiFAXimin* 550 MG TAB PO SCH ×2 (09:45→20:24)
--- NOTE | 2018-04-08 13:59 | PN ---
Subjective Date of Service: 04/08/18 Interval History: Patient seen and examined at bedside. Denies fever, chills, shortness of breath , chest discomfort, N/V/D. Pt states that he has abdominal swelling. He reports that he is not moving his bowels, we discussed the importance of adjusting the lactulose for the therapeutic effect. Patient was discussed with his PCP - Dr. Faria. He has been trying to get the patient a Hospice referral outpatient. Dr. Faria also reports that the patient was also suppose to see GI today and possible liver BX. Family History: Findings - Father had dementia, mother had breast ca. Social History: Findings - Never smoked, no alcohol abuse. Lives alone at [place]. His brother Shahram Martinez is his SDM. Past Medical History: Findings - Schizoaffective, bipolar, HTN, GERD, depression and liver failure. Objective Active Medications: Acetaminophen (Tylenol Tab*) 650 mg PO Q6H PRN Reason: FEVER/PAIN Amitriptyline HCl (Elavil Tab*) 25 mg PO BEDTIME ANY Fluoxetine HCl (Prozac Cap*) 20 mg PO QAM ANY Heparin Sodium (Porcine) (Heparin Vial(*)) 5,000 units SUBCUT Q12HR ANY Hydrocortisone (Anusol Hc Supp*) 25 mg [place] BID PRN Reason: hemorrhoidal pain Lactulose (Lactulose*) 30 ml PO TID ANY Magnesium Oxide (Magox 400 Tab*) 400 mg PO DAILY ANY Omeprazole (Prilosec Cap*) 20 mg PO DAILY ANY Rifaximin (Xifaxan*) 550 mg PO BID ANY Spironolactone (Aldactone Tab*) 25 mg PO DAILY ANY Thiothixene (Navane Cap*) 10 mg PO BEDTIME ANY Valsartan (Diovan Tab*) 80 mg PO DAILY ANY Vital Signs - 8 hr 04/08/18 04/08/18 04/08/18 08:00 08:24 11:00 Temperature 97.8 F 97.4 F Pulse Rate 91 93 Respiratory 24 24 24 Rate Blood Pressure 115/73 118/75 (mmHg) O2 Sat by Pulse 97 98 Oximetry Oxygen Devices in Use Now: None Appearance: NAD, laying in bed Eyes: - - Slight scleral icterus Ears/Nose/Mouth/Throat: Mucous Membranes Moist Respiratory: Symmetrical Chest Expansion and Respiratory Effort, Clear to Auscultation Cardiovascular: NL Sounds; No Murmurs; No JVD, RRR Abdominal: NL Sounds; No Tenderness; No Distention Extremities: No Edema Skin: No Rash or Ulcers Neurological: Alert and Oriented x 3 Lines/Tubes/Other Access: Clean, Dry and Intact Peripheral IV - site benign Nutrition: Taking PO's Result Diagrams: 04/07/18 09:35 04/07/18 09:35 Assess/Plan/Problems-Billing Assessment: Mr. Martinez is a 72 yo male with PMH significant for schizoaffective, bipolar, HTN, GERD, and depression who presented to the emergency room for weakness after a fall at [place] where he lives. - Patient Problems (1) Cirrhosis Comment: - With associated hepatic encephalopathy - Advancing cirrhosis with high ammonia level - Unclear cause, no history of alcohol abuse - Continue reduced dose of all his psych meds, ? if these were contributing - Continue Rifaximin and increase lactulose to 30 ml QID (2) Gait disorder Code(s): R26.9 - UNSPECIFIED ABNORMALITIES OF GAIT AND MOBILITY SNOMED Code(s) : 68086277 Comment: - Liver failure probably explains most of his weakness/gait disorder - PT/OT evals (3) HTN (hypertension) Code(s): I10 - ESSENTIAL (PRIMARY) HYPERTENSION SNOMED Code(s): 31931995 Comment: - Normotensive, SBP 110-130's - Continue valsartan (decreased 50% on admission) (4) Thrombocytopenia Code(s): D69.6 - THROMBOCYTOPENIA, UNSPECIFIED SNOMED Code(s): 284443162 Comment: - Stable - Likely secondary to portal hypertension and splenic sequestration - Continue to trend (5) GERD (gastroesophageal reflux disease) Code(s): K21.9 - GASTRO-ESOPHAGEAL REFLUX DISEASE WITHOUT ESOPHAGITIS SNOMED Code(s): 213544625 Comment: - Continue PPI (6) Schizoaffective disorder, bipolar type Code(s): F25.0 - SCHIZOAFFECTIVE DISORDER, BIPOLAR TYPE SNOMED Code(s): 77107679 Comment: - Continue fluoxetine, thiothixene, amitriptyline (50% decreased on admission) and navane (7) DVT prophylaxis Code(s): COP9308 - SNOMED Code(s): 107355251 Comment: - SQ heparin (8) DNR (do not resuscitate) Status and Disposition: Inpatient. Discharge to SNF vs Hospice residence once medically stable.
[2018-04-08] MEDS: Amitriptyline TAB* 50 MG PO SCH (20:24)
[2018-04-08] MEDS: THIOTHIXENE 10 MG PO SCH (20:25)
[2018-04-09] MEDS: Hydrocortisone SUPP* 25 MG SUPP (2.5%) PR PRN (01:04)
[2018-04-09] MEDS ORDERED: Morphine INJ* 4 MG/ML 1 ML SYRINGE (NEW SYRINGE VERSION) IV ONE (01:38)
[2018-04-09] MEDS ORDERED: Morphine INJ* 4 MG/ML 1 ML SYRINGE (NEW SYRINGE VERSION) IV PRN (03:14)
[2018-04-09 05:57] LABS: ABS Basophils 0 10^3/ul (0-0.2); ABS Eosinophils 0.1 10^3/ul (0-0.6); ABS Lymphocytes 0.8 10^3/ul (1.0-4.8); ABS Monocytes 0.9 10^3/ul (0-0.8); ABS Neutrophils 5.4 10^3/ul (1.5-7.7); ABS Nucleated RBC 0 10^3/ul; Eosinophil % 1.7 % (0-6); Hematocrit 36 % (42-52); Hemoglobin 12.2 g/dl (14.0-18.0); Lymphocyte % 10.6 % (25-47); Mean Corpuscular HGB Conc 34 g/dl (31-36); Mean Corpuscular Hemoglobin 33 pg (27-31); Mean Corpuscular Volume 96 fL (80-94); Nucleated Red Blood Cells % 0.4; Platelet Count 148 10^3/ul (150-450); Red Blood Count 3.75 10^6/ul (4.00-5.40); Red Cell Distribution Width 17 % (10.5-15); White Blood Count 7.2 10^3/ul (3.5-10.8)
[2018-04-09 06:14] LABS: EGFR Non-African American 58.7 (>60)
[2018-04-09] MEDS: RiFAXimin* 550 MG TAB PO SCH (09:24)
[2018-04-09] MEDS: Magnesium Oxide TAB* 400 MG PO SCH (09:24)
[2018-04-09] MEDS: Heparin VIAL(*) 5000 UNITS/ML VIAL (FIVE THOUSAND) SUBCUT SCH (09:24)
[2018-04-09] MEDS: Omeprazole CAP* 20 MG PO SCH (09:24)
[2018-04-09] MEDS: FLUoxetine CAP* 20 MG PO SCH (09:24)
--- NOTE | 2018-04-09 09:39 | PN ---
Subjective Date of Service: 04/09/18 Interval History: Patient seen and examined at bedside. Pt is lethargic today, he was up a lot of the night per [facility] staff. He is able to be aroused but dozes off to sleep. Atul fever, chills, shortness of breath, chest discomfort, N/V/D. Pt has has 2 BMs in the last 24 hours. Pt noted to have received IV morphine overnight for pain. Discussion with Dave, his nephew about end of life care. His family is very supportive and have been helping Atul with his medical decision making. They feel that Atul would like quality over quantity. Dave will discuss the change in condition with his family and let us know later today if we are going to pursue comfort Care/Hospice at this point. Family History: Findings - Father had dementia, mother had breast ca. Social History: Findings - Never smoked, no alcohol abuse. Lives alone at [place]. His brother Shahram Martinez is his SDM. Past Medical History: Findings - Schizoaffective, bipolar, HTN, GERD, depression and liver failure. Objective Active Medications: Acetaminophen (Tylenol Tab*) 650 mg PO Q6H PRN Reason: FEVER/PAIN Amitriptyline HCl (Elavil Tab*) 25 mg PO BEDTIME ANY Fluoxetine HCl (Prozac Cap*) 20 mg PO QAM ANY Heparin Sodium (Porcine) (Heparin Vial(*)) 5,000 units SUBCUT Q12HR ANY Hydrocortisone (Anusol Hc Supp*) 25 mg [place] BID PRN Reason: hemorrhoidal pain Lactulose (Lactulose*) 30 ml PO Q6H ANY Magnesium Oxide (Magox 400 Tab*) 400 mg PO DAILY ANY Morphine Sulfate (Morphine Inj (Syringe)*) 2 mg IV Q2H PRN Reason: PAIN Omeprazole (Prilosec Cap*) 20 mg PO DAILY ANY Rifaximin (Xifaxan*) 550 mg PO BID ANY Spironolactone (Aldactone Tab*) 25 mg PO DAILY ANY Thiothixene (Navane Cap*) 10 mg PO BEDTIME ANY Valsartan (Diovan Tab*) 80 mg PO DAILY ANY Vital Signs - 8 hr 04/09/18 04/09/18 04/09/18 01:50 03:01 03:34 Temperature Pulse Rate Respiratory 20 22 22 Rate Blood Pressure (mmHg) O2 Sat by Pulse Oximetry 04/09/18 04/09/18 04:27 04:34 Temperature 98.2 F Pulse Rate 98 Respiratory 20 18 Rate Blood Pressure 97/64 (mmHg) O2 Sat by Pulse 94 Oximetry Oxygen Devices in Use Now: None Appearance: NAD, sitting up in bed Eyes: - - Mild scleral icterus Respiratory: Symmetrical Chest Expansion and Respiratory Effort, Clear to Auscultation Cardiovascular: NL Sounds; No Murmurs; No JVD, RRR Abdominal: - - Abdomen large, soft, non tender, bowel sounds present Extremities: No Edema Skin: - - Jaundice Neurological: NL Muscle Strength and Tone, - - Lethargic and Oriented, mild confusion Lines/Tubes/Other Access: Clean, Dry and Intact Peripheral IV - site benign Nutrition: Taking PO's Result Diagrams: 04/09/18 05:45 04/09/18 05:45 Assess/Plan/Problems-Billing Assessment: Mr. Martinez is a 72 yo male with PMH significant for schizoaffective, bipolar, HTN, GERD, and depression who presented to the emergency room for weakness after a fall at [place] where he lives. - Patient Problems (1) Cirrhosis Comment: - With associated hepatic encephalopathy (this may be multifactoral, received morphine overnight) - Advancing cirrhosis, ammonia level improving - Unclear cause, no history of alcohol abuse - GI consult, pending - Continue reduced dose of all his psych meds, ? if these were contributing - Continue Rifaximin and increase lactulose to 30 ml QID - Discontinue spironolactone (2) Gait disorder Code(s): R26.9 - UNSPECIFIED ABNORMALITIES OF GAIT AND MOBILITY SNOMED Code(s) : 18415416 Comment: - Liver failure probably explains most of his weakness/gait disorder - PT/OT evals (3) HTN (hypertension) Code(s): I10 - ESSENTIAL (PRIMARY) HYPERTENSION SNOMED Code(s): 72988556 Comment: - Now hypotensive, SBP 70-130's - Discontinue valsartan and spironolactone (4) Thrombocytopenia Code(s): D69.6 - THROMBOCYTOPENIA, UNSPECIFIED SNOMED Code(s): 007645054 Comment: - Stable - Likely secondary to portal hypertension and splenic sequestration - Continue to trend (5) GERD (gastroesophageal reflux disease) Code(s): K21.9 - GASTRO-ESOPHAGEAL REFLUX DISEASE WITHOUT ESOPHAGITIS SNOMED Code(s): 477067662 Comment: - Continue PPI (6) Schizoaffective disorder, bipolar type Code(s): F25.0 - SCHIZOAFFECTIVE DISORDER, BIPOLAR TYPE SNOMED Code(s): 67453755 Comment: - Continue fluoxetine, thiothixene, amitriptyline (50% decreased on admission) and navane (7) DVT prophylaxis Code(s): ROP9557 - SNOMED Code(s): 470389391 Comment: - SQ heparin (8) DNR (do not resuscitate) Status and Disposition: Inpatient. Discharge to SNF vs Hospice residence once medically stable.
[2018-04-09] MEDS: Spironolactone TAB* 25 MG PO SCH (10:10)
[2018-04-09] MEDS: Valsartan TAB* 80 MG PO SCH (10:10)
--- NOTE | 2018-04-09 12:03 | CONSULT ---
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 He has encephalopathy, portal hypertension and ascites. He has not had a liver biopsy. He has thrombocytopenia probably on the basis of splenic sequestration, and also has poor nutritional status with albumin of 2.6. His bilirubin is 5.7, ammonia has been as high as 129. I spoke with Mr. Martinez but he admitted to being very confused and disoriented. He fell asleep every few minutes, sometimes mid-sentence. He has asterixis. He has an additonal PMH of bipolar schizoaffective disorder but is very congenial. Lab Values: Abnormal Lab Results 04/09/18 04/09/18 04/09/18 05:45 05:45 05:45 WBC 7.2 RBC 3.75 L Hgb 12.2 L Hct 36 L MCV 96 H MCH 33 H MCHC 34 RDW 17 H Plt Count 148 L MPV 8.0 Neut % (Auto) 74.9 Lymph % (Auto) 10.6 L [place] % (Auto) 12.4 H Eos % (Auto) 1.7 Baso % (Auto) 0.4 Absolute Neuts (auto) 5.4 Absolute Lymphs (auto) 0.8 L Absolute Monos (auto) 0.9 H Absolute Eos (auto) 0.1 Absolute Basos (auto) 0 Absolute Nucleated RBC 0 Nucleated RBC % 0.4 Sodium 133 L Potassium 4.1 Chloride 104 Carbon Dioxide 21 L Anion Gap 8 BUN 25 H Creatinine 1.22 H Est GFR ( Amer) 71.1 Est GFR (Non-Af Amer) 58.7 BUN/Creatinine Ratio 20.5 H Glucose 124 H Calcium 8.5 L Total Bilirubin 5.60 H AST 90 H ALT 46 Alkaline Phosphatase 245 H Ammonia 88 H Total Protein 6.2 L Albumin 2.5 L Globulin 3.7 Albumin/Globulin Ratio 0.7 L Laboratory Last Values WBC 7.2 10^3/ul (3.5-10.8) 04/09/18 05:45 RBC 3.75 10^6/ul (4.00-5.40) L 04/09/18 05:45 Hgb 12.2 g/dl (14.0-18.0) L 04/09/18 05:45 Hct 36 % (42-52) L 04/09/18 05:45 MCV 96 fL (80-94) H 04/09/18 05:45 MCH 33 pg (27-31) H 04/09/18 05:45 MCHC 34 g/dl (31-36) 04/09/18 05:45 RDW 17 % (10.5-15) H 04/09/18 05:45 Plt Count 148 10^3/ul (150-450) L 04/09/18 05:45 MPV 8.0 um3 (7.4-10.4) 04/09/18 05:45 Neut % (Auto) 74.9 % (38-83) 04/09/18 05:45 Lymph % (Auto) 10.6 % (25-47) L 04/09/18 05:45 [place] % (Auto) 12.4 % (0-7) H 04/09/18 05:45 Eos % (Auto) 1.7 % (0-6) 04/09/18 05:45 Baso % (Auto) 0.4 % (0-2) 04/09/18 05:45 Absolute Neuts (auto) 5.4 10^3/ul (1.5-7.7) 04/09/18 05:45 Absolute Lymphs (auto) 0.8 10^3/ul (1.0-4.8) L 04/09/18 05:45 Absolute Monos (auto) 0.9 10^3/ul (0-0.8) H 04/09/18 05:45 Absolute Eos (auto) 0.1 10^3/ul (0-0.6) 04/09/18 05:45 Absolute Basos (auto) 0 10^3/ul (0-0.2) 04/09/18 05:45 Absolute Nucleated RBC 0 10^3/ul 04/09/18 05:45 Nucleated RBC % 0.4 04/09/18 05:45 INR (Anticoag Therapy) 1.31 (0.77-1.02) H 04/07/18 09:35 APTT 33.2 seconds (26.0-36.3) 04/07/18 09:35 D-Dimer, Quantitative > 1050 ng/mL (Less Than 230) H 04/07/18 09:35 Sodium 133 mmol/L (135-145) L 04/09/18 05:45 Potassium 4.1 mmol/L (3.5-5.0) 04/09/18 05:45 Chloride 104 mmol/L (101-111) 04/09/18 05:45 Carbon Dioxide 21 mmol/L (22-32) L 04/09/18 05:45 Anion Gap 8 mmol/L (2-11) 04/09/18 05:45 BUN 25 mg/dL (6-24) H 04/09/18 05:45 Creatinine 1.22 mg/dL (0.67-1.17) H 04/09/18 05:45 Est GFR ( Amer) 71.1 (>60) 04/09/18 05:45 Est GFR (Non-Af Amer) 58.7 (>60) 04/09/18 05:45 BUN/Creatinine Ratio 20.5 (8-20) H 04/09/18 05:45 Glucose 124 mg/dL (70-100) H 04/09/18 05:45 Lactic Acid 1.7 mmol/L (0.5-2.0) 04/07/18 09:35 Calcium 8.5 mg/dL (8.6-10.3) L 04/09/18 05:45 Magnesium 2.1 mg/dL (1.9-2.7) 04/07/18 09:35 Total Bilirubin 5.60 mg/dL (0.2-1.0) H 04/09/18 05:45 AST 90 U/L (13-39) H 04/09/18 05:45 ALT 46 U/L (7-52) 04/09/18 05:45 Alkaline Phosphatase 245 U/L (34-104) H 04/09/18 05:45 Ammonia 88 mcmol/L (16-53) H 04/09/18 05:45 Troponin I 0.01 ng/mL (<0.04) 04/07/18 09:35 C-Reactive Protein 59.84 mg/L (<8.01) H 04/07/18 09:35 B-Natriuretic Peptide 22 pg/mL (-100) 04/07/18 09:35 Total Protein 6.2 g/dL (6.4-8.9) L 04/09/18 05:45 Albumin 2.5 g/dL (3.2-5.2) L 04/09/18 05:45 Globulin 3.7 g/dL (2-4) 04/09/18 05:45 Albumin/Globulin Ratio 0.7 (1-3) L 04/09/18 05:45 Amylase 28 U/L (29-103) L 04/07/18 09:35 Lipase 18 U/L (11.0-82.0) 04/07/18 09:35 Urine Color Courtney 04/07/18 17:05 Urine Appearance Clear 04/07/18 17:05 Urine pH 6.0 (5-9) 04/07/18 17:05 Ur Specific [place] 1.039 (1.010-1.030) H 04/07/18 17:05 Urine Protein Negative (Negative) 04/07/18 17:05 Urine Ketones Negative (Negative) 04/07/18 17:05 Urine Blood Negative (Negative) 04/07/18 17:05 Urine Nitrate Negative (Negative) 04/07/18 17:05 Urine Bilirubin Negative (Negative) 04/07/18 17:05 Urine Urobilinogen Positive (Negative) A 04/07/18 17:05 Ur Leukocyte Esterase Negative (Negative) 04/07/18 17:05 Urine Glucose Negative (Negative) 04/07/18 17:05 - Objective Active Medications: Acetaminophen (Tylenol Tab*) 650 mg PO Q6H PRN PRN Reason: FEVER/PAIN Last Admin: 04/08/18 20:24 Dose: 650 mg Amitriptyline HCl (Elavil Tab*) 25 mg PO BEDTIME ANY Last Admin: 04/08/18 20:24 Dose: 25 mg Fluoxetine HCl (Prozac Cap*) 20 mg PO QAM ANY Last Admin: 04/09/18 09:24 Dose: 20 mg Heparin Sodium (Porcine) (Heparin Vial(*)) 5,000 units SUBCUT Q12HR ANY Last Admin: 04/09/18 09:24 Dose: 5,000 units Hydrocortisone (Anusol Hc Supp*) [address] BID PRN PRN Reason: hemorrhoidal pain Last Admin: 04/09/18 01:04 Dose: 25 mg Lactulose (Lactulose*) 30 ml PO Q6H [facility] Last Admin: 04/09/18 09:24 Dose: 30 ml Magnesium Oxide (Magox 400 Tab*) 400 mg PO DAILY [facility] Last Admin: 04/09/18 09:24 Dose: 400 mg Omeprazole (Prilosec Cap*) 20 mg PO DAILY [facility] Last Admin: 04/09/18 09:24 Dose: 20 mg Rifaximin (Xifaxan*) 550 mg PO BID [facility] Last Admin: 04/09/18 09:24 Dose: 550 mg Thiothixene (Navane Cap*) 10 mg PO BEDTIME [facility] Last Admin: 04/08/18 20:25 Dose: 10 mg Vital Signs: Vital Signs: Temp Pulse Resp BP Pulse Ox 97.6 F 91 20 78/40 95 04/09/18 09:06 04/09/18 09:06 04/09/18 09:06 04/09/18 09:20 04/09/18 09:06 Patient Weight: Weight 165 lb Intake and Output: Intake & Output 04/07/18 04/08/18 04/09/18 04/10/18 06:59 06:59 06:59 06:59 Intake Total 270 110 Output Total 675 375 Balance -405 -265 Weight 165 lb Intake: Oral 270 110 Output: Urine 375 150 Christine 300 225 Other: # Bowel Movements 0 Estimated Stool Amount Small Small ADLs: Meal Record Start: 04/07/18 14: 23 Freq: DAILY@0900,1400,1800 Status: Active Protocol: Created 04/07/18 14:23 System (Rec: 04/07/18 14:23 System [id number]-C01) Document 04/07/18 18:00 [id number] (Rec: 04/07/18 18:14 [id number] TELE-C10) Document 04/08/18 09:00 [id number] (Rec: 04/08/18 12:30 [id number] TELE-C01) Document 04/08/18 14:00 [id number] (Rec: 04/08/18 14:25 [id number] TELE-C01) Document 04/08/18 21:44 [id number] (Rec: 04/08/18 21:44 [id number] TELE-C11) Intake and Output Start: 04/07/18 09: 19 Freq: Status: Active Protocol: Created 04/07/18 09:19 System (Rec: 04/07/18 09:19 System [id number]) Intake and Output Start: 04/07/18 14: 23 Freq: DAILY@0600,1400,2200 Status: Active Protocol: Created 04/07/18 14:23 System (Rec: 04/07/18 14:23 System TELE-C01) Document 04/07/18 17:17 [id number] (Rec: 04/07/18 17:17 [id number] TELE-C08) Document 04/07/18 22:00 [id number] (Rec: 04/07/18 22:49 [id number] TELE-C13) Document 04/08/18 06:00 [id number] (Rec: 04/08/18 06:34 [id number] TELE-C01) Document 04/08/18 14:00 [id number] (Rec: 04/08/18 14:25 [id number] TELE-C01) Document 04/08/18 22:17 [id number] (Rec: 04/08/18 22:18 [id number] TELE-C11) Document 04/09/18 06:00 [id number] (Rec: 04/09/18 06:38 [id number] TELE-M13) Head: Symmetrical Eyes: - - Mild scleral icterus Ears/Nose/Mouth/Throat: Mucous Membranes Moist Neck: NL Appearance and Movements; NL JVP, No Thyroid Enlargement, Masses Cardiovascular: NL Sounds; No Murmurs; No JVD, RRR Respiratory: Symmetrical Chest Expansion and Respiratory Effort, Clear to Auscultation Abdominal: - - Distended abdomen with shifting dullness and positive fluid wave. 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 He is very ill, with hypotension noted today, and declining status. He qualifies for hospice on the basis of end-stage liver failure and malnutrition. He is not eating any significant amount. I spoke to his health care proxy, Suraj, in [place], who would be very pleased to have the patient admitted to the [facility] residence, and says the room and board fee is not a problem. I will try to arrange for ttransport to the [facility] residence today. If this is not possible, their second choice is SNF ( [facility], [facility], or [facility]) with hospice services. - Plan Consult Plan (MU): Hospice - Time On Unit Date of Evaluation: 04/09/18 Hospice Consult Time in: 11:00 Hospice Consult Time Out: 12:00 Hospice Consult Time Total: 60 > 50% of Time Spend In Counseling or Coordinating Care: Yes
[2018-04-09 12:55] VITALS: BP 82/48
--- NOTE | 2018-04-11 01:13 | DS ---
CC: Dr. Alexandr Faria; [facility] * DISCHARGE SUMMARY: DATE OF ADMISSION: 04/08/18. DATE OF DISCHARGE: 04/09/18. ATTENDING PHYSICIAN: Dr. Nam Noe * (dictated by Mavis Zuniga NP). PRIMARY CARE PROVIDER: Dr. Alexandr Faria. PRIMARY DIAGNOSES: 1. End-stage liver failure. 2. Idiopathic cirrhosis of unknown cause. 3. Gait disorder. 4. Malnutrition. 5. Hypotension. SECONDARY DIAGNOSES: 1. Schizoaffective disorder. 2. Hypertension. 3. Gastroesophageal reflux disease. CONSULTATIONS WHILE IN THE HOSPITAL: Dr. Lori Kearns with Palliative Care Services. STUDIES WHILE IN THE HOSPITAL: 1. Chest x-ray on 04/08/18. Radiologist's impression: Low lung volumes. Small bilateral pleural effusions. 2. Brain CT on 04/07/18. Radiologist's impression: No intracranial pathology. 3. Cervical spine CT on 04/07/18. Radiologist's impression: No definite fracture of the cervical spine is noted. There is motion artifact present throughout the upper cervical vertebra. Multilevel degenerative disk disease is noted. 4. Chest thoracic CT on 04/07/18. Radiologist's impression: No evidence for pulmonary embolus. Small bilateral pleural effusions. Findings consistent with cirrhosis. There is a moderate amount of ascites present. Mild compression fracture of the T10 vertebral body likely [id number] in duration. DISCHARGE MEDICATIONS: New medications: 1. Lorazepam 0.5 mg oral every 6 hours as needed for pain or dyspnea or anxiety. 2. Morphine oral concentrate 5 mg oral or sublingual every 4 hours as needed for pain or dyspnea. 3. Hydrocortisone suppository 25 mg per rectum twice daily as needed for hemorrhoidal pain. Continued home medications: 1. Omeprazole 20 mg oral daily. 2. Rifaximin 550 mg oral daily. Discontinued home medications: 1. Acetaminophen. 2. Folic acid. 3. Magnesium oxide. 4. Potassium chloride. 5. Thiamine. 6. Valsartan. 7. Vitamin E. 8. Spironolactone. Changed home medications: 1. Lactulose increased to 30 mg oral every 6 hours. 2. Fluoxetine changed from 40 mg to 20 mg oral daily. 3. Amitriptyline changed from 50 mg daily to 25 mg oral daily at bedtime. 4. Navane decreased from 20 mg oral daily to 10 mg oral daily. HISTORY OF PRESENT ILLNESS/HOSPITAL COURSE: Mr. Martinez is a 72-year-old male with past medical history significant for schizoaffective disorder, bipolar disorder, hypertension, GERD, cirrhosis, and end-stage liver failure, who presented to the emergency room with complaints of a fall, being unable to get up. The patient reported not taking any of his medications or eating anything on his day of presentation and reported being weak for sometime. Since February, the patient has had worsening liver function. According to his primary care provider, he is pending GI followup and possible liver biopsy. The patient's advancing cirrhosis has an unclear cause. It is suspected to be possibly secondary to his psychiatric medications, but no other cause has been found. While in the emergency room, the patient was found to have advancing liver failure and worsening renal function. He had a brain CT with no acute findings. He had a CT of his chest and thorax with no acute findings. He had a chest x-ray without acute findings. Hospitalists were asked to evaluate him for admission. During Mr. Martinez's hospitalization, his liver function continued to worsen. A discussion was had with his primary care provider, who stated that this was rapidly progressing and he recommended referring the patient to hospice. The patient had a palliative care consult with Dr. Lori Kearns, who felt that he was appropriate for the hospice residence and she offered him a bed at the residence on the day of discharge. The patient continued to be very confused, disoriented, easily falling asleep. He is noted to have asterixis. Mr. Martinez is stable for discharge to the hospice residence today. Vital signs are as follows: Temperature 97.9, heart rate 91, respiratory rate 20, O2 sat 95% on room air, blood pressure 78/40 manual. DISCHARGE PLAN: Mr. Martinez will be discharged to the hospice residence. He has had a prescription sent to [facility] for concentrated morphine 5 mg oral or sublingual every 4 hours as needed for pain or dyspnea and additionally , he has had lorazepam 0.5 mg every 6 hours as needed for pain, dyspnea, and anxiety sent. In regards to his home medications, he has been continued on his usual home medications. I recommend continuing them at the 50% decreased rates that includes his Navane at 10 mg oral daily at bedtime, Prozac at 20 mg oral every morning, and amitriptyline at 25 mg oral daily at bedtime. For now, he could be continued on his rifaximin 550 mg oral twice daily and lactulose 30 mL oral every 6 hours. These could be discontinued if felt appropriate. He has been continued on his home omeprazole. I recommend continuing to monitor the patient's ascites as he may benefit from a therapeutic paracentesis if he develops significant ascites. This is a summarized report of a complex medical history and hospital stay. For further details, please see the entire medical record. TIME SPENT: Time for this discharge was approximately 50 minutes, greater than half of that was spent with the patient and on the phone with nephew, Dave, discussing prognosis , diagnosis, treatment options, and discharge plans. MAVIS ZUNIGA, CIRO [id number]/[facility] #: [id number] JOEL
== END 2018-04-09 14:35 | disposition hospice, home (50) | DRG 442 ==
LOC: ED 09:01 → MEDTELE 13:52
PROVIDERS: ADMIT Internal Medicine; ATTEND Internal Medicine
DX: K72.90 Hepatic failure, unspecified without coma (principal); E46 Unspecified protein-calorie malnutrition; J90 Pleural effusion, not elsewhere classified; R18.8 Other ascites; M48.54XA Collapsed vertebra, not elsewhere classified, thoracic region, initial encounter for fracture; K76.6 Portal hypertension; K74.69 Other cirrhosis of liver; I10 Essential (primary) hypertension; F41.9 Anxiety disorder, unspecified; W18.30XA Fall on same level, unspecified, initial encounter; R40.2362 Coma scale, best motor response, obeys commands, at arrival to emergency department; R40.2142 Coma scale, eyes open, spontaneous, at arrival to emergency department; R40.2242 Coma scale, best verbal response, confused conversation, at arrival to emergency department; D69.6 Thrombocytopenia, unspecified; R27.8 Other lack of coordination; R29.6 Repeated falls; Z51.5 Encounter for palliative care; I95.9 Hypotension, unspecified; K21.9 Gastro-esophageal reflux disease without esophagitis; R26.9 Unspecified abnormalities of gait and mobility; M50.30 Other cervical disc degeneration, unspecified cervical region; F25.0 Schizoaffective disorder, bipolar type; Z66 Do not resuscitate; Z88.8 Allergy status to other drugs, medicaments and biological substances; Z84.1 Family history of disorders of kidney and ureter; Z72.89 Other problems related to lifestyle; Z87.891 Personal history of nicotine dependence; Z68.26 Body mass index [BMI] 26.0-26.9, adult; Y92.003 Bedroom of unspecified non-institutional (private) residence as the place of occurrence of the external cause; Z80.3 Family history of malignant neoplasm of breast; Z82.0 Family history of epilepsy and other diseases of the nervous system
CPT/HCPCS: 36415; 70450; 71046; 71275; 72125; 80053; 81003; 82140; 82150; 83605; 83690; 83735; 83880; 84156; 84300; 84484; 85025; 85379; 85610; 85730; 86140; 93005; 99284; A9270-GY; G8978-GP-CJ; G8979-GP-CI; G8987-GO-CJ; G8988-GO-CI; J1644; J2270; Q9967